=== PATIENT | female | born 1975 | race Two or more races ===

== ENCOUNTER 2016-11-22 22:34 | Emergency (ER) | payer OTHER ==
[2016-11-22 22:46] VITALS: BP 147/97
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
[2016-11-23] MEDS ORDERED: ACETAMINOPHEN 325 MG TABLET PO STA (00:59)
[2016-11-23] MEDS ORDERED: ACETAMINOPHEN 325 MG TABLET PO ONE (01:11)
== END 2016-11-23 01:15 | disposition home or self-care (01) ==
LOC: ED 22:34
DX: H11.31 Conjunctival hemorrhage, right eye (principal)
CPT/HCPCS: 99282; 99283

== ENCOUNTER 2017-04-21 12:08 | Emergency (ER) | payer OTHER ==
[2017-04-21 12:39] VITALS: BP 175/105
== END 2017-04-21 14:59 | disposition left against medical advice (07) ==
LOC: ED 12:08
DX: Z53.21 Procedure and treatment not carried out due to patient leaving prior to being seen by health care provider (principal)

== ENCOUNTER 2018-06-26 13:07 | Emergency (ER) | payer OTHER ==
[2018-06-26 13:20] VITALS: BP 138/102
--- NOTE | 2018-06-26 13:27 | ED Physician Documentation ---
PD HPI NVD - Stated complaint Stated Complaint: ABD PX - Chief complaint Chief Complaint: Abd Pain - History obtained from History obtained from: Patient (She works at a [employer] where there is an old outbreak of a GI illness. For the last 4 days she has had central abdominal pain associated with nausea no vomiting, but also runny nose, chills and body aches but no measured fevers. She saw her physician today and was referred to the emergency department she says because of the right lower quadrant tenderness for appendicitis workup. She has no history of abdominal surgeries.) Review of Systems Constitutional: reports: Chills, Myalgias, Fatigue. denies: Fever Nose: reports: Rhinorrhea / runny nose GI: reports: Abdominal Pain, Nausea, Diarrhea. denies: Vomiting : denies: Dysuria, Frequency, Hesitancy PD PAST MEDICAL HISTORY - Past Medical History Past Medical History: Yes Cardiovascular: Hypertension Psych: Depression Musculoskeletal: Chronic back pain - Past Surgical History Past Surgical History: No - Present Medications Home Medications: Ambulatory Orders Medication Instructions Recorded Confirmed Bupropion HCl [Bupropion Xl] 300 mg ORAL DAILY 03/21/15 05/28/17 hydroCHLOROthiazide 25 mg PO DAILY 04/21/17 05/28/17 [Hydrochlorothiazide] Acyclovir 800 mg PO 5XD #30 tablet 05/28/17 Dexamethasone [Decadron] 4 mg PO DAILY #5 tablet 05/28/17 Methocarbamol [Robaxin] 500 mg PO Q6H PRN #25 tablet 05/28/17 Naproxen [Naprosyn] 500 mg PO BID #20 tablet 05/28/17 Oxycodone HCl/Acetaminophen 1 each PO Q6H PRN #20 tablet 05/28/17 [Percocet 5-325 mg Tablet] - Allergies Allergies/Adverse Reactions: Allergies Allergy/AdvReac Type Severity Reaction Status Date / Time No Known Drug Allergies Allergy Verified 04/21/17 12:39 - Social History Does the pt smoke?: No Smoking Status: Never smoker Does the pt drink ETOH?: Yes Does the pt have substance abuse?: No - Family History Family history: reports: Non contributory - Immunizations Immunizations are current?: Yes PD ED PE NORMAL - Vitals Vital signs reviewed: Yes - General General: Alert and oriented X 3, No acute distress - HEENT HEENT: PERRL, EOMI - Neck Neck: Supple, no meningeal sign, No bony TTP - Cardiac Cardiac: RRR, No murmur - Respiratory Respiratory: No respiratory distress, Clear bilaterally - Abdomen Abdomen: Normal bowel sounds, Soft, Other (Very mild right mid abdominal tenderness that does not localize to the upper or lower quadrant per se. No surgical signs. Negative Rovsing sign.) - Back Back: No CVA TTP, No spinal TTP - Derm Derm: Normal color, Warm and dry - Extremities Extremities: No edema, No calf tenderness / cord - Neuro Neuro: Alert and oriented X 3, Normal speech Results - Vitals Vitals: Vital Signs - 24 hr 06/26/18 13:14 Temperature 36.6 C Heart Rate 71 Respiratory 16 Rate Blood Pressure 138/102 H O2 Saturation 100 Oxygen O2 Source Room air - Labs Labs: Laboratory Tests 06/26/18 06/26/18 06/26/18 13:29 13:29 13:48 WBC 4.5 L RBC 4.00 L Hgb 11.4 L Hct 34.0 L MCV 85.0 MCH 28.6 MCHC 33.7 RDW 15.4 H Plt Count 154 MPV 10.4 Neut # (Auto) 2.5 Lymph # (Auto) 1.4 L [place] # (Auto) 0.4 Eos # (Auto) 0.2 Baso # (Auto) 0.0 Absolute Nucleated RBC 0.00 Nucleated RBC % 0.0 Sodium 137 Potassium 3.8 Chloride 109 Carbon Dioxide 24 Anion Gap 4.0 L BUN 17 Creatinine 0.7 Estimated GFR (MDRD) 91 Glucose 105 H Calcium 8.8 Total Bilirubin 0.4 AST 15 ALT 15 Alkaline Phosphatase 73 Total Protein 7.2 Albumin 4.0 Globulin 3.2 Albumin/Globulin Ratio 1.3 Lipase 30 Urine Color YELLOW Urine Clarity HAZY Urine pH 5.5 Ur Specific [place] >=1.030 H Urine Protein NEGATIVE Urine Glucose (UA) NEGATIVE Urine Ketones NEGATIVE Urine Occult Blood LARGE H Urine Nitrite NEGATIVE Urine Bilirubin NEGATIVE Urine Urobilinogen 1 (NORMAL) Ur Leukocyte Esterase NEGATIVE Urine RBC 6-10 H Urine WBC 0-3 Ur Squamous Epith Cells MOD Squamous H Urine Bacteria Moderate H Urine Casts 0-2 Hyaline Casts Urine Mucus Marked Strands Ur Microscopic Review INDICATED Urine Culture Comments NOT INDICATED Urine HCG, Qual NEGATIVE - Rads (name of study) CT Ap Radiology: EMP read contemporaneously (normal with normal appendix) PD MEDICAL DECISION MAKING - ED course ED course: 43-year-old woman referred from an outpatient clinic for an appendicitis workup. The overall picture seems viral. No pertinent findings on labs or imaging. The patient was counseled as to the diagnosis and need for follow-up. I counseled the patient with regard to signs and symptoms that would necessitate an urgent reevaluation in the emergency department. They understand they are welcome to return at any time if worse or if not improving as expected. This document was made in part using voice recognition software. While efforts are made to proofread this documents, sound alike and grammatical errors may occur. Departure - Departure Disposition: 01 Home, Self Care Clinical Impression: Diarrhea Qualifiers: Diarrhea type: presumed infectious Qualified Code(s): R19.7 - Diarrhea, unspecified Abdominal pain Qualifiers: Abdominal location: generalized Qualified Code(s): R10.84 - Generalized abdominal pain Condition: Good Record reviewed to determine appropriate education?: Yes Instructions: ED Diarrhea Viral Comments: Call your doctor to arrange a follow-up appointment, make the next available appointment. In the interim, return anytime if worse or if new symptoms develop. Your blood pressure was elevated today on check into the emergency department. This does not mean that you have hypertension, it is a common phenomenon to come to the emergency department and have elevated blood pressure. I recommend that you see your primary care physician within the week to have it rechecked when you are feeling better.
[2018-06-26 13:44] LABS: BASOPHILS % (AUTO) 0.3 %; EOSINOPHILS # (AUTO) 0.2 10^3/uL (0.0-0.7); HGB - HEMOGLOBIN 11.4 g/dL (12.0-16.0); LYMPHOCYTES # (AUTO) 1.4 10^3/uL (1.5-3.5); LYMPHOCYTES % (AUTO) 30.4 %; MEAN CORPUSCULAR HEMOGLOBIN 28.6 pg (27.0-31.0); MEAN CORPUSCULAR HGB CONC 33.7 g/dL (32.0-36.0); MEAN PLATELET VOLUME 10.4 fL (7.9-10.8); MONOCYTES # (AUTO) 0.4 10^3/uL (0.0-1.0); MONOCYTES % (AUTO) 9.1 %; NEUTROPHILS # (AUTO) 2.5 10^3/uL (1.5-6.6); NEUTROPHILS % (AUTO) 56.2 %; PLT - PLATELET COUNT 154 10^3/uL (130-450); RED CELL DISTRIBUTION WIDTH 15.4 % (12.0-15.0); WHITE BLOOD COUNT 4.5 x10^3/uL (4.8-10.8)
[2018-06-26] MEDS ORDERED: IOPAMIDOL-300 100 ML VIAL ONE (13:44)
[2018-06-26 13:45] LABS: ALBUMIN/GLOBULIN RATIO 1.3 (1.0-2.2); BILIRUBIN,TOTAL 0.4 mg/dL (0.2-1.0); CALCIUM 8.8 mg/dL (8.5-10.3); CREATININE 0.7 mg/dL (0.4-1.0); TOTAL PROTEIN 7.2 g/dL (6.7-8.2)
[2018-06-26 13:51] LABS: BILIRUBIN,URINE NEGATIVE (NEGATIVE); GLUCOSE, URINE (UA) NEGATIVE (NEGATIVE); KETONES,URINE (UA) NEGATIVE (NEGATIVE); LEUKOCYTE ESTERASE, URINE NEGATIVE (NEGATIVE); NITRITE,URINE NEGATIVE (NEGATIVE); OCCULT BLOOD,URINE LARGE (NEGATIVE); PH,URINE 5.5 PH (5.0-7.5); PROTEIN,URINE NEGATIVE (NEGATIVE); UROBILINOGEN,URINE 1 (NORMAL) E.U./dL (NORMAL)
[2018-06-26 14:02] LABS: BACTERIA,URINE Moderate /HPF (None Seen); CASTS, URINE 0-2 Hyaline Casts /LPF; CLARITY,URINE HAZY (CLEAR); HCG UR QUAL NEGATIVE; MUCUS,URINE Marked Strands; SQUAMOUS EPITHELIAL CELL,UR MOD Squamous (<= Few)
[2018-06-26] MEDS ORDERED: IOPAMIDOL-300 100 ML VIAL IVP ONE (14:18)
--- NOTE | 2018-06-26 14:41 | CT Report ---
Reason: IV only, R abd pain Procedure Date: 06/26/2018 Accession Number: [id number] / [id number] Procedure: CT - Abdomen/Pelvis W/ CPT Code: FULL RESULT: EXAM: CT ABDOMEN AND PELVIS EXAM DATE: 06/26/2018 02:15 PM. CLINICAL HISTORY: Right abdominal pain COMPARISONS: None. TECHNIQUE: Routine helical CT imaging was performed through the abdomen and pelvis. IV contrast: ISOVUE 300 100mL. Enteric contrast: No. Reconstructions: Coronal and sagittal. In accordance with CT protocol optimization, one or more of the following dose reduction techniques were utilized for this exam: automated exposure control, adjustment of mA and/or KV based on patient size, or use of iterative reconstructive technique. FINDINGS: Lung Bases: Unremarkable. Liver: Normal. No masses. Gallbladder/Bile Ducts: Unremarkable. Spleen: Normal. Pancreas: Normal. Adrenal Glands: Normal. Kidneys: Normal. No masses or hydronephrosis. Peritoneal Cavity/Bowel: Normal. No free fluid, free air or adenopathy. No masses or acute inflammatory process. The appendix is well visualized and normal. Pelvic Organs: The urinary bladder is mostly collapsed, limiting its evaluation. The visualized pelvic organs are within normal limits. Vasculature: No aneurysms or other significant abnormality. Bones: No significant abnormality. Other: None. IMPRESSION: No acute findings in the abdomen and pelvis. Normal appendix. RADIA
== END 2018-06-26 15:01 | disposition home or self-care (01) ==
LOC: ED 13:07
DX: R19.7 Diarrhea, unspecified (principal); R10.84 Generalized abdominal pain; I10 Essential (primary) hypertension
CPT/HCPCS: 36415; 74177; 80053; 81001; 81025; 83690; 85025; 99283; Q9967; 81003; 87086

== ENCOUNTER 2020-06-18 07:41 | Day surgery (SDC) | payer OTHER ==
[2020-06-18] MEDS ORDERED: DEXAMETHASONE 4 MG/ML VIAL IVP ONE (07:42)
[2020-06-18] MEDS ORDERED: ePHEDrine 50 MG/ML VIAL IVP ONE (07:42)
[2020-06-18] MEDS ORDERED: MIDAZOLAM 2 MG/2 ML VIAL IVP ONE (07:42)
[2020-06-18] MEDS ORDERED: NEOSTIGMINE 1 MG/1 ML 10 ML MDV IVP ONE (07:42)
[2020-06-18] MEDS ORDERED: PROPOFOL 200 MG/20 ML VIAL IVP ONE (07:42)
[2020-06-18] MEDS ORDERED: ONDANSETRON 4 MG/2 ML VIAL IVP ONE (07:42)
[2020-06-18] MEDS ORDERED: ROCURONIUM 50 MG/5 ML VIAL IVP ONE (07:42)
[2020-06-18] MEDS ORDERED: fentaNYL 100 MCG/2 ML VIAL IVP ONE (07:42)
[2020-06-18] MEDS ORDERED: GLYCOPYRROLATE 1 MG/5 ML VIAL IVP ONE (07:42)
[2020-06-18 08:03] LABS: HCG UR QUAL NEGATIVE
[2020-06-18] MEDS ORDERED: LACTATED RINGERS 1,000 ML IV ONE ×2 (08:14→11:00)
--- NOTE | 2020-06-18 08:33 | ANESTHESIA ---
Pre-Anesthesia VS, & Labs - Diagnosis Thickened endometrium, RLQ Pain - Procedure Diagnostic Lap with Mirena, IUD Placement with Myosure Hysteroscopy Vital Signs: Temp Pulse Resp BP Pulse Ox 36.4 C L 76 16 116/72 100 06/18/20 07:51 06/18/20 07:51 06/18/20 07:51 06/18/20 07:51 06/18/20 07:51 Height: 4 ft 11.06 in Weight (kg): 73.9 kg Body Mass Index: 32.8 BMI Classification: Obese - NPO >8 hours - Is Patient ?: No - Lab Results Lab results reviewed: Yes Home Medications and Allergies Home Medications: Ambulatory Orders Ascorbic Acid 500 mg PO 06/13/20 Ferrous Sulfate 325 mg PO 06/13/20 Losartan [Cozaar] 50 mg PO QPM 06/13/20 Metoprolol Succinate [Toprol Xl] 50 mg PO QPM 06/13/20 Bupropion HCl [Bupropion Xl] 300 mg ORAL DAILY 03/21/15 Ascorbic Acid 500 mg PO 06/13/20 Ferrous Sulfate 325 mg PO 06/13/20 Losartan [Cozaar] 50 mg PO QPM 06/13/20 Metoprolol Succinate [Toprol Xl] 50 mg PO QPM 06/13/20 Allergies/Adverse Reactions: Allergies Allergy/AdvReac Type Severity Reaction Status Date / Time No Known Drug Allergies Allergy Verified 06/13/20 15:19 Anes History & Medical History - Anesthetic History Anesthesia Complications: reports: No previous complications Family history of Anesthesia Complications: Denies Family history of Malignant Hyperthermia: Denies - Medical History Cardiovascular: reports: Hypertension Pulmonary: reports: None Gastrointestinal: reports: None Urinary: reports: None Neuro: reports: None Musculoskeletal: reports: None Endocrine/Autoimmune: reports: None Blood Disorders: reports: None Skin: reports: None Smoking Status: Never smoker Psychosocial: reports: Depression History of Cancer?: No - Surgical History General: Other (Hernia repair 2003) Exam General: Alert, Oriented x3, Cooperative, No acute distress Dental: WNL Mouth Openin Fingerbreadth Neck Mobility: Normal Mallampati classification: I Thyromental Distance: 4-6 cm Respiratory: Lungs clear Mental/Cognitive Status: Alert/Oriented X3, Normal for patient Plan Anesthesia Type: General Consent for Procedure(s) Verified and Reviewed: Yes Code Status: Attempt Resuscitation ASA classification: 2-Mild systemic disease Is this case an emergency?: No (Discussed anesthetic, permit signed.)
[2020-06-18] MEDS ORDERED: MORPHINE 2 MG/ML CARPUJECT IVP PRN (08:35)
[2020-06-18] MEDS ORDERED: METOCLOPRAMIDE 10 MG/2 ML VIAL IVP PRN (08:35)
[2020-06-18] MEDS ORDERED: NALOXONE 0.4 MG/ML VIAL IVP PRN (08:35)
[2020-06-18] MEDS ORDERED: ePHEDrine 50 MG/ML VIAL IVP PRN (08:35)
[2020-06-18] MEDS ORDERED: fentaNYL 100 MCG/2 ML VIAL IVP PRN (08:35)
[2020-06-18] MEDS ORDERED: ONDANSETRON 4 MG/2 ML VIAL IVP PRN (08:35)
[2020-06-18] MEDS ORDERED: HYDROmorphone 0.5 MG/0.5 ML SYRINGE IVP PRN (08:35)
[2020-06-18] MEDS ORDERED: ATROPINE ABBOJECT 1 MG/10 ML SYRINGE IVP PRN (08:35)
[2020-06-18] MEDS ORDERED: LACTATED RINGERS 1,000 ML IV SCH (09:00)
[2020-06-18] MEDS ORDERED: SILVER NITRATE APPLICATOR TOP ONE ×2 (09:42→10:17)
[2020-06-18] MEDS ORDERED: LEVONORGESTREL 20 MCG/24H IUD IY ONE ×2 (09:42→10:49)
[2020-06-18] MEDS ORDERED: BUPIVACAINE 0.5% PF 30 ML VIAL ONE (09:43)
[2020-06-18] MEDS ORDERED: VASOPRESSIN 20 UNIT/ML VIAL ONE (09:43)
[2020-06-18] MEDS ORDERED: LIDOCAINE 1% 50 ML MDV ONE (09:44)
[2020-06-18] MEDS ORDERED: BUPIVACAINE 0.5% PF 30 ML VIAL INFIL ONE ×2 (10:40)
[2020-06-18] MEDS ORDERED: LIDOCAINE 1% 50 ML MDV SUBQ ONE ×2 (10:40)
[2020-06-18] MEDS ORDERED: HYDROcod/ACETAM 10 MG/325 MG TABLET PO PRN (11:03)
--- NOTE | 2020-06-18 11:07 | OPERATIVE REPORT ---
Operative Report - General Planned Procedure: Diagnostic laparoscopy, peritoneal biopsy Hysteroscopy with Myosure Mirena IUD Pre-Op Diagnosis: Thickened endometrium, right lower quadrant pain Procedure Performed: Same as above Post Op Diagnosis: Thickened endometrium, endometriosis - Procedure Note Primary Surgeon: Sebastián Secondary Surgeon: Jessica Anesthesia Provider: Estuardo Anesthesia Technique: General ET tube Pathology: Peritoneal biopsy Endometrium IV Fluids (mL): 500 Estimated Blood Loss (mL): 10 Indications: 10 thickened endometrium noted on ultrasound Cyclic right lower quadrant pain Findings: Exam under anesthesia The uterus was upper limits of normal size, of normal shape and consistency. The adnexa the were benign. Operative findings The uterus was of normal shape, covered with translucent blebs, 1 of which was sampled. There were powder rai in the anterior cul-de-sac. The posterior cul-de-sac was obliterated, preventing complete visualization of either ovary. The tubes appeared normal. The appendix was searched for, but not found. The liver edge and gallbladder appeared normal. Hysteroscopic findings The uterus sounded to 12 cm. There was abundant fluffy endometrium which made it difficult to visualize intrauterine landmarks, but the cornua were eventually seen and photographed. Complications: None - Other Other Information/Narrative: The patient was brought to the operating room, placed supine on the operating table, and given general oral endotracheal anesthesia. She was then placed in low lithotomy stirrups and prepped and draped in the usual sterile fashion. A timeout was performed. An exam under anesthesia was performed. A speculum was then placed in her vagina and a Hulka tenaculum placed in her cervix. Attention was then returned to the abdomen where the umbilicus was infiltrated with 3 cc of half percent Marcaine and a midline stab incision was made. A Verress needle attached to high flow carbon dioxide was then inserted directly into the abdomen and the abdomen inflated until insufflation pressures reached 15 mmHg. The Veress needle was removed and replaced with the 0 degree laparoscopic trocar and sleeve with the laparoscope attached to allow direct visualization of entry into the abdomen. The trocar was removed allowing direct visualization of abdominal contents with findings as previously noted. An avascular area in the right lower quadrant was infiltrated with 3 cc of half percent Marcaine, a stab incision was made and a 5 mm trocar inserted under direct visualization. A grasper was used to remove the previously noted blebs from the uterine serosa which was then sent for pathologic examination. After the rest of the abdomen was visualized, the abdominal cavity was desufflated to the extent possible, the trochars were removed and the incisions closed with 4-0 Monocryl and Dermabond. Attention was then turned to the vagina where a speculum was inserted into the vagina, the cervix grasped with a single-tooth tenaculum and the uterus sounded to 12 cm. The cervix was then serially dilated to allow passage of the 0 degree Myosure hysteroscope, with findings as previously noted. When the MyoSure curettage was judged complete, a Mirena IUD was placed, the instruments withdrawn from the vagina and the patient was awakened and taken to the recovery room in stable condition.
--- NOTE | 2020-06-18 11:37 | ANESTHESIA POST OP EVALUATION ---
Anesthesia Post Eval - Post Anesthesia Eval Vitals: Last Vital Signs Temp 36.3 C L 06/18/20 11:30 Pulse 60 06/18/20 11:30 Resp 16 06/18/20 11:30 BP 105/66 06/18/20 11:20 Pulse Ox 17 L 06/18/20 11:30 CV Function Including HR & BP: positive: Stable Pain Control: positive: Satisfactory Nausea & Vomiting: positive: Negative Mental Status: positive: Baseline Respiratory Status: Airway Patent Hydration Status: Satisfactory Anesthesia Complications: positive: None (Awake and responding appropriately)
[2020-06-18] MEDS ORDERED: fentaNYL 100 MCG/2 ML VIAL ONE (12:04)
[2020-06-18 12:21] VITALS: BP 119/65
[2020-06-18] MEDS ORDERED: ONDANSETRON 4 MG/2 ML VIAL ONE (12:44)
== END 2020-06-18 07:42 | disposition home or self-care (01) ==
LOC: SDS 07:41
PROVIDERS: ATTEND Obstetrics & Gynecology
PROC: 0UB94ZX Excision of Uterus, Percutaneous Endoscopic Approach, Diagnostic (ICD-10-PCS; principal; 2020-06-18 09:15)
PROC: 0UDB8ZZ Extraction of Endometrium, Via Natural or Artificial Opening Endoscopic (ICD-10-PCS; 2020-06-18 09:15)
DX: R93.89 Abnormal findings on diagnostic imaging of other specified body structures (principal); R10.2 Pelvic and perineal pain; N83.292 Other ovarian cyst, left side; N80.9 Endometriosis, unspecified; E66.9 Obesity, unspecified; Z68.32 Body mass index [BMI] 32.0-32.9, adult; K66.8 Other specified disorders of peritoneum
CPT/HCPCS: 81025

== ENCOUNTER 2020-07-06 12:33 | Outpatient (CLI) | payer OTHER ==
[2020-07-06] MEDS ORDERED: GADOBUTROL 7.5 MMOL/7.5 ML VIAL ONE (13:25)
--- NOTE | 2020-07-06 16:56 | MRI Report ---
PROCEDURE: Pelvis W/WO INDICATIONS: PELVIC AND PERINEAL PAIN CONTRAST: IV CONTRAST: Gadavist ml: 7 TECHNIQUE: Coronal ultra fast SE, sagittal breath-hold T2 FSE; axial T1 FSE with and without fat saturation thro ugh the pelvis. Optional long- and short-axis uterine nonbreath-hold T2 FSE through the uterus. Sag ittal or axial dynamic ultra fast GE during administration of contrast. Post-contrast axial or coron al ultra fast GE / 2-D spoiled GE with fat saturation from the iliac crests to the symphysis. Option al diffusion weighted imaging and ADC may be performed. COMPARISON: None available. FINDINGS: Image quality: Excellent. Uterus: Uterus is normal in size. There is a slight arcuate morphology and there is an IUD present d irected towards the left horn. The IUD appears to be a Y-shaped and is rotated 90 degrees with the cr ossbars in close proximity of the upper and lower portions of the fundal myometrium. There is no perf oration of the serosal surface. The IUD string is seen and traverses the endocervix. Endometrium is n ormal in thickness. There are a few small ovoid and rounded T2 hyperintense foci within the junctiona l zone. Junctional zone is normal in thickness at 12 mm or less. Adnexa: The right ovary was not well seen. The structure believed to be the right ovary measures appr oximately 1.9 x 2.3 x 2.4 cm without dominant follicle or cyst. It demonstrates hypoenhancement, and T1 and T2 hypointensity. The left ovary has normal morphology and contains a 2.9 x 3.5 x 3.7 cm simpl e left ovarian cyst. Urinary system: Bladder wall is normal in thickness. Distal ureters are non distended. Urethra juan ears normal in morphology. Nodes and vessels: No pelvic or inguinal adenopathy by size criteria. Iliac vessels are normal in s ize. Bowel and peritoneum: No pathologic free pelvic fluid. Normal appendix. Inferior colon and small storm wel loops are normal in caliber. Soft tissues: No inguinal hernias. No findings of pelvic floor incompetence in the absence of provo cation. Bones: Marrow demonstrates normal overall signal. IMPRESSION: 1. IUD in the left fundus, probably rotated. This may be symptomatic. 2. Hypoenhancing right ovarian structure may be a hemorrhagic cyst, fibroma, less likely dermoid give n lack of T1 hyperintensity. 3. Normal appendix. Reviewed by: Belinda King MD on 07/06/2020 4:54 PM PST Approved by: Belinda King MD on 07/06/2020 4:54 PM PST Station ID: [id number]
== END 2020-07-06 12:34 | disposition home or self-care (01) ==
LOC: DI 12:33
PROVIDERS: ATTEND Student in an Organized Health Care Education/Training Program
DX: R10.2 Pelvic and perineal pain (principal); Z97.5 Presence of (intrauterine) contraceptive device
CPT/HCPCS: 72197; A9585

== ENCOUNTER 2020-11-06 12:35 | Observation (INO) | payer OTHER ==
[2020-11-06 12:58] LABS: BASOPHILS % (AUTO) 0.5 %; EOSINOPHILS # (AUTO) 0.2 10^3/uL (0.0-0.7); EOSINOPHILS % (AUTO) 2.3 %; HCT - HEMATOCRIT 26.6 % (37.0-47.0); HGB - HEMOGLOBIN 7.6 g/dL (12.0-16.0); LYMPHOCYTES # (AUTO) 2.5 10^3/uL (1.5-3.5); LYMPHOCYTES % (AUTO) 31.1 %; MEAN CORPUSCULAR HEMOGLOBIN 21.1 pg (27.0-31.0); MEAN CORPUSCULAR HGB CONC 28.6 g/dL (32.0-36.0); MEAN CORPUSCULAR VOLUME 73.9 fL (81.0-99.0); MEAN PLATELET VOLUME 12.1 fL (7.9-10.8); MONOCYTES # (AUTO) 0.7 10^3/uL (0.0-1.0); MONOCYTES % (AUTO) 8.6 %; NEUTROPHILS # (AUTO) 4.7 10^3/uL (1.5-6.6); NEUTROPHILS % (AUTO) 57.3 %; PLT - PLATELET COUNT 222 10^3/uL (130-450); RED CELL DISTRIBUTION WIDTH 17.1 % (12.0-15.0); WHITE BLOOD COUNT 8.1 x10^3/uL (4.8-10.8)
--- NOTE | 2020-11-06 13:00 | ED Physician Documentation ---
History of Present Illness - Stated complaint Stated Complaint: LT SIDE PX - Chief complaint Chief Complaint: Cardiac - Additonal information Additional information: 45-year-old female presents emergency department for evaluation of intermittent chest pain that has been getting progressively worse over the last 3 weeks. She reports that she is increasingly fatigued when climbing stairs and with exertion or dressing her resident she will develop a left-sided chest pain that would last a few minutes. Typically improves with rest. She does have a history of hypertension. Non-smoker. No alcohol. no hx of cad. no hx of stress test or echo Denies with the episodes of chest pain any nausea, radiation of the pain, syncopal episodes or shortness of air. No personal history of blood clots or cancer. Past medical history is hypertension Meds: metoprolol, losartan. PCP: [facility]. Review of Systems Constitutional: denies: Fever, Chills Eyes: reports: Reviewed and negative Ears: reports: Reviewed and negative Nose: reports: Reviewed and negative Throat: reports: Reviewed and negative Cardiac: reports: Chest pain / pressure. 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 : None HEENT: None Psych: Depression Musculoskeletal: None Derm: None - Past Surgical History Past Surgical History: No General: Other (Hernia repair 2003) - Present Medications Home Medications: Ambulatory Orders Medication Instructions Recorded Confirmed Bupropion HCl [Bupropion Xl] 300 mg ORAL DAILY 03/21/15 11/06/20 Ascorbic Acid 500 mg PO DAILY 06/13/20 11/06/20 Ferrous Sulfate 325 mg PO DAILY 06/13/20 11/06/20 Losartan [Cozaar] 50 mg PO QPM 06/13/20 11/06/20 Metoprolol Succinate [Toprol Xl] 50 mg PO QPM 06/13/20 11/06/20 - Allergies Allergies/Adverse Reactions: Allergies Allergy/AdvReac Type Severity Reaction Status Date / Time No Known Drug Allergies Allergy Verified 11/06/20 12:40 - Social History Does the pt smoke?: No Smoking Status: Never smoker Does the pt drink ETOH?: Yes Does the pt have substance abuse?: No - Immunizations Immunizations are current?: Yes - POLST Patient has POLST: No PD ED PE EXPANDED - General General: Alert, No acute distress, Other (obese) - Neck Neck: Supple w/out meningeal sx. No: Adenopathy - Cardiac Cardiac: Regular Rate, Regular Rhythm, Radial strong equal, Pedal strong equal, Cap refill < 2 sec. No: Murmur Present - Respiratory Respiratory: Clear to ausultation joaquina. No: Distress, Labored - Abdomen Abdomen: Normal Bowel sounds. No: Tender to palpation - Derm Derm: Normal color, Warm and dry. No: Rash, Petecchiae, Purpura - Extremities Extremities: Normal. No: Deformity, Tenderness - Neuro Neuro: Alert and Oriented X 3, CNII-XII intact - GCS Eye Opening: Spontaneous Motor: Obeys Commands Verbal: Oriented Total: 15 Results - Vitals Vitals: Vital Signs - 24 hr 11/06/20 12:40 Temperature 36.6 C Heart Rate 65 Respiratory 18 Rate Blood Pressure 153/83 H O2 Saturation 99 Oxygen O2 Source Room air - EKG (time done) 1247 Rate: Rate (enter#) (62) Rhythm: NSR [place]: Normal Intervals: Normal SD QRS: Normal Ischemia: T wave inversion (V2; ? anteroseptal infarct) Compare to prior EKG: Old EKG unavailable Computer interpretation: Agree with computer - Labs Labs: Laboratory Tests 11/06/20 11/06/20 11/06/20 12:54 12:54 12:54 WBC 8.1 RBC 3.60 L Hgb 7.6 L Hct 26.6 L MCV 73.9 L MCH 21.1 L MCHC 28.6 L RDW 17.1 H Plt Count 222 MPV 12.1 H Neut # (Auto) 4.7 Lymph # (Auto) 2.5 [place] # (Auto) 0.7 Eos # (Auto) 0.2 Baso # (Auto) 0.0 Absolute Nucleated RBC 0.00 Nucleated RBC % 0.0 Sodium 137 Potassium 4.0 Chloride 105 Carbon Dioxide 22 Anion Gap 10.0 BUN 15 Creatinine 0.6 Estimated GFR (MDRD) 108 Glucose 99 Calcium 9.4 Total Bilirubin 0.3 AST 13 ALT 14 Alkaline Phosphatase 62 Troponin I High Sens 2.6 Total Protein 7.3 Albumin 3.8 Globulin 3.5 Albumin/Globulin Ratio 1.1 Lipase 28 TSH Serum HCG, Qual 11/06/20 11/06/20 12:54 13:02 WBC RBC Hgb Hct MCV MCH MCHC RDW Plt Count MPV Neut # (Auto) Lymph # (Auto) [place] # (Auto) Eos # (Auto) Baso # (Auto) Absolute Nucleated RBC Nucleated RBC % Sodium Potassium Chloride Carbon Dioxide Anion Gap BUN Creatinine Estimated GFR (MDRD) Glucose Calcium Total Bilirubin AST ALT Alkaline Phosphatase Troponin I High Sens Total Protein Albumin Globulin Albumin/Globulin Ratio Lipase TSH 1.04 Serum HCG, Qual NEGATIVE PD MEDICAL DECISION MAKING - ED course Complexity details: reviewed results, re-evaluated patient, d/w patient, d/w family ED course: 45-year-old female presents to the emergency department for evaluation of intermittent chest pain that has been getting progressively worse over the last 3 to 4 weeks. She describes the chest pain as sharp and worse with exertion. No history of tobacco use but she is obese and has a history of hypertension. Screening EKG today is somewhat abnormal with T wave inversion in V2. High- sensitivity troponin is negative. Most significant finding on screening labs is an anemia that the patient attributes to endometriosis and heavy irregular menses. However her heart score is 4 putting her at moderate risk for a Mace event. I spoken with Dr. Humphrey the daytime hospitalist who agrees to bring the patient in on observation status likely for a stress test in a.m. Patient is agreeable to this plan. Departure - Departure Disposition: ED Place in Observation Clinical Impression: Chest pain Qualifiers: Chest pain type: unspecified Qualified Code(s): R07.9 - Chest pain, unspecified Anemia Qualifiers: Anemia type: iron deficiency Iron deficiency anemia type: chronic blood loss Qualified Code(s): D50.0 - Iron deficiency anemia secondary to blood loss (chronic)
[2020-11-06 13:17] LABS: ALBUMIN 3.8 g/dL (3.2-5.5); ALBUMIN/GLOBULIN RATIO 1.1 (1.0-2.2); BILIRUBIN,TOTAL 0.3 mg/dL (0.2-1.0); CALCIUM 9.4 mg/dL (8.5-10.3); CREATININE 0.6 mg/dL (0.4-1.0); TOTAL PROTEIN 7.3 g/dL (6.7-8.2)
[2020-11-06 13:51] LABS: HCG,QUALITATIVE BLOOD NEGATIVE
[2020-11-06] MEDS ORDERED: ACETAMINOPHEN 325 MG TABLET PO PRN (14:01)
[2020-11-06] MEDS ORDERED: SODIUM CHLORIDE FLUSH 0.9% 10 ML SYRINGE IVP PRN (14:01)
[2020-11-06] MEDS ORDERED: ONDANSETRON ODT 4 MG TABLET TL PRN (14:01)
--- NOTE | 2020-11-06 14:02 | XRAY Report ---
PROCEDURE: Chest 1 View X-Ray INDICATIONS: Chest Pain TECHNIQUE: One view of the chest was acquired. COMPARISON: Chest x-ray 04/15/2014 FINDINGS: Surgical changes and devices: None. Lungs and pleura: No pleural effusions or pneumothorax. Lungs are clear. Mediastinum: Mediastinal contours appear normal. Heart size is upper limits of normal in size. Bones and chest wall: No suspicious bony lesions. Overlying soft tissues appear unremarkable. IMPRESSION: No acute pulmonary process. Reviewed by: Rosie Menendez MD on 11/06/2020 2:01 PM PDT Approved by: Rosie Menendez MD on 11/06/2020 2:01 PM PDT Station ID: [id number]
--- NOTE | 2020-11-06 14:08 | HISTORY & PHYSICAL EXAMINATION ---
Chief Complaint - Chief Complaint Chief Complaint: Chest pain History of Present Illness - Admitted From Admitted From:: Home - History Obtained From Records Reviewed: Yes History obtained from: Patient, ER Physician, EMR - History of Present Illness HPI Comment/Other: This is a pleasant 45-year-old female with a past medical history significant for hypertension and iron deficiency anemia who presents today complaining of chest pain. She states this has been present for the past 3 weeks. She became concerned last night when it occurred at rest while she was watching TV. The pain went away on its own but this morning it occurred again when she was assisting someone with putting their pants on. She states the pain is located over the left side of her chest. It is sharp in nature. It is nonradiating. No associated nausea, vomiting, diaphoresis. The pain normally occurs with exertion will resolve with rest. She has no family history of heart disease. She is a non-smoker. She also states that she has been fatigued for the past 3 to 4 weeks. She has had decreased exercise tolerance and dyspnea with exertion. She complains of l ack of energy. She reports a history of iron deficiency anemia in the past and she does take oral iron on a daily basis. She has abnormal uterine bleeding with heavy cycles that resolved last year. She states that now normally she will have occasional spotting for about 1 to 2 weeks followed by a "normal "cycle for another week. She states that this "normal" cycle lasts 7 days and she normally uses 4-5 pads a day. Her last menstrual cycle was 2 days ago. She reports no blood in her stool or hematuria. She was told that she was close to requiring a blood transfusion last year due to her anemia. Given her chest pain, medicine was consulted for admission to place the patient in observation for a stress test. 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 Her father is a diabetic. She has one sister who is also diabetic. No family history of heart disease. Her maternal aunt has a history of breast cancer. Her paternal aunt has a history of what is believed to be gastric cancer. Living arrangement: At home Living Situation: With family Social History Notes: She lives at home with her . She has 3 daughters. 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 She is a non-smoker. Rarely drinks alcohol. - POLST Patient has POLST: No Meds/Allgy - Home Medications Home Medications: Ambulatory Orders Medication Instructions Recorded Confirmed Bupropion HCl [Bupropion Xl] 300 mg ORAL DAILY 03/21/15 11/06/20 Ascorbic Acid 500 mg PO DAILY 06/13/20 11/06/20 Ferrous Sulfate 325 mg PO DAILY 06/13/20 11/06/20 Losartan [Cozaar] 50 mg PO QPM 06/13/20 11/06/20 Metoprolol Succinate [Toprol Xl] 50 mg PO QPM 06/13/20 11/06/20 - Allergies Allergies/Adverse Reactions: Allergies Allergy/AdvReac Type Severity Reaction Status Date / Time No Known Drug Allergies Allergy Verified 11/06/20 12:40 Review of Systems - Constitutional Constitutional: reports: Fatigue, Malaise, Weakness - Cardiovascular Cariovascular: reports: Chest pain, Exertional dyspnea, Decr. exercise tolerance. denies: Palpitations, Edema - Respiratory Respiratory: reports: SOB with exertion. denies: Cough, SOB at rest - Gastrointestinal Gastrointestinal: denies: Abdominal pain, Diarrhea, Change in bowel habits, Black stools, Bloody stools, Nausea, Vomiting - Genitourinary Genitourinary: reports: Other (Abnormal uterine bleeding). denies: Hematuria - Neurological Neurological: reports: General weakness, Dizziness - Hematologic/Lymphatic Hematologic/Lymphatic: reports: Anemia - All Other Systems All Other Systems: reports: Reviewed and negative Prior Level of Functionality: She is independent with her ADLs. Exam - Vital Signs Reviewed Vital Signs: Yes Vital Signs: Vital Signs x48h Temp Pulse Resp BP Pulse Ox 11/06/20 12:40 36.6 C 65 18 153/83 H 99 - Physical Exam General Appearance: positive: No acute distress, Alert Eyes Bilateral: positive: Normal inspection, Conjunctivae nml ENT: positive: ENT inspection nml Neck: positive: Nml inspection Respiratory: positive: No respiratory distress. negative: Wheezes, Rales Cardiovascular: positive: Regular rate & rhythm, No murmur. negative: Tachycardia, Systolic murmur Abdomen: positive: Non-tender, No distention. negative: Tenderness, Guarding, Rebound Skin: positive: Warm, Dry Extremities: positive: Full ROM, No pedal edema Neurologic/Psychiatric: positive: Oriented x3, Motor nml. negative: Disoriented to person, Disoriented to place, Disoriented to time Conclusion/Plan - Problem List (1) Chest pain Conclusion/Plan: Given her chest pain and a heart score of 4, the patient will be placed in observation. Risk factors include her hypertension, obesity. Her EKG shows new T wave inversions in leads V2 otherwise her EKG is unremarkable. Initial troponin is normal. We will make her n.p.o. at midnight for stress test. We will continue her beta-una. We will check lipid panel and A1c. Qualifiers: Chest pain type: unspecified Qualified Code(s): R07.9 - Chest pain, unspecified (2) Iron deficiency anemia Conclusion/Plan: Hemoglobin is decreased at 7.6 and her MCV is 72. Suspect this is likely going to be iron deficiency anemia from chronic blood loss due to her abnormal uterine bleeding. We will check iron studies and ferritin. We will increase her oral iron mentation to twice daily. We did discuss the potential need for IV iron on outpatient basis if she remains anemic with significant iron deficiency. Check her stool for occult blood. Qualifiers: Iron deficiency anemia type: chronic blood loss Qualified Code(s): D50.0 - Iron deficiency anemia secondary to blood loss (chronic) (3) Hypertension Conclusion/Plan: He is currently hypertensive with systolic in the 150s. We will continue her home antihypertensives. Will adjust dosing as necessary. (4) Abnormal uterine bleeding Conclusion/Plan: She reports a diagnosis of endometriosis and she is being followed by gynecology. I suspect this is contributing to her iron deficiency anemia. She will continue outpatient follow-up with gynecology. - Lab Results Lab results reviewed: Yes Fish Bones: 11/06/20 12:54 11/06/20 12:54 - Diagnostic Imaging Results Diagnostic Imaging Results: positive: Final report reviewed - EKG Results EKG Interpreted Independently: Yes EKG Comparison: Changed from prior EKG (T wave inversions in V2 is new compared to prior EKG.) EKG Findings: EKG reveals a sinus rhythm. She has T wave inversions in V2. No other ST segment changes. Core Measures - Anticipated LOS I expect patient to be DC'd or transferred within 96 hours.: Yes - Issues Hospital Issues and Management Plan: 45-year-old female with history of iron deficiency anemia, hypertension presents with chest pain. Her heart score is 4 [address] her in observation for stress test tomorrow. We will trend her troponins. - DVT/VTE - Prophylaxis VTE/DVT Device ordered at admit?: Yes VTE/DVT Prophylaxis med ordered at admit?: No
[2020-11-06 15:20] LABS: IRON < 6 ug/dL (28-170); TOTAL IRON BINDING CAPACITY 517 ug/dL (250-450); TRANSFERRIN 369 mg/dL (192-382)
[2020-11-06 17:16] LABS: B. PARAPERTUSSIS- RESP PCR PAN NOT DETECTED; B. PERTUSSIS- RESP PCR PANEL NOT DETECTED; C. PNEUMONIAE- RESP PCR PANEL NOT DETECTED; CORONAVIRUS 229E-RESP PCR NOT DETECTED; CORONAVIRUS HKU1-RESP PCR NOT DETECTED; CORONAVIRUS NL63-RESP PCR NOT DETECTED; CORONAVIRUS OC43-RESP PCR NOT DETECTED; HUMAN METAPNEUMOVIRUS NOT DETECTED; INFLUENZA A- RESP PCR PANEL NOT DETECTED; INFLUENZA B - RESP PCR PANEL NOT DETECTED; M. PNEUMONIAE- RESP PCR PANEL NOT DETECTED; PARAINFLUENZA VIRUS 1 NOT DETECTED; PARAINFLUENZA VIRUS 2 NOT DETECTED; PARAINFLUENZA VIRUS 3 NOT DETECTED; PARAINFLUENZA VIRUS 4 NOT DETECTED; RHINOVIRUS/ENTEROVIRUS NOT DETECTED; RSV- RESP PCR PANEL NOT DETECTED; SARS-CoV-2 -RESP PCR PANEL NOT DETECTED
[2020-11-06] MEDS: SODIUM CHLORIDE FLUSH 0.9% 10 ML SYRINGE IVP SCH (19:22)
[2020-11-06] MEDS: FERROUS SULFATE 325 MG TABLET PO SCH (20:08)
[2020-11-06] MEDS ORDERED: LOSARTAN 50 MG TABLET PO SCH (21:00)
[2020-11-06] MEDS ORDERED: METOPROLOL SUCCINATE 50 MG TABLET PO SCH (21:00)
[2020-11-07] MEDS: SODIUM CHLORIDE FLUSH 0.9% 10 ML SYRINGE IVP SCH ×3 (00:22→17:07)
[2020-11-07 04:14] LABS: BASOPHILS % (AUTO) 0.4 %; EOSINOPHILS # (AUTO) 0.2 10^3/uL (0.0-0.7); EOSINOPHILS % (AUTO) 2.8 %; HCT - HEMATOCRIT 27.9 % (37.0-47.0); HGB - HEMOGLOBIN 8.2 g/dL (12.0-16.0); LYMPHOCYTES # (AUTO) 2.3 10^3/uL (1.5-3.5); LYMPHOCYTES % (AUTO) 30.5 %; MEAN CORPUSCULAR HEMOGLOBIN 21.5 pg (27.0-31.0); MEAN CORPUSCULAR HGB CONC 29.4 g/dL (32.0-36.0); MONOCYTES # (AUTO) 0.6 10^3/uL (0.0-1.0); MONOCYTES % (AUTO) 7.7 %; NEUTROPHILS # (AUTO) 4.4 10^3/uL (1.5-6.6); NEUTROPHILS % (AUTO) 58.5 %; NRBC ABSOLUTE COUNT (AUTO) 0.02 x10^3/uL; NUCLEATED RED BLOOD CELLS AUTO 0.3 /100WBC; RED BLOOD COUNT 3.82 10^6/uL (4.20-5.40); RED CELL DISTRIBUTION WIDTH 16.9 % (12.0-15.0); WHITE BLOOD COUNT 7.5 x10^3/uL (4.8-10.8)
[2020-11-07 04:17] LABS: MEAN PLATELET VOLUME 12.5 fL (7.9-10.8); PLT - PLATELET COUNT 216 10^3/uL (130-450)
[2020-11-07 04:22] LABS: CALCIUM 8.9 mg/dL (8.5-10.3); CREATININE 0.6 mg/dL (0.4-1.0); POTASSIUM 4.3 mmol/L (3.5-5.0)
[2020-11-07 04:30] LABS: CHOL/HDL RATIO 3.1 (<4.4); CHOLESTEROL 181 mg/dL; HDL CHOLESTEROL 59 mg/dL; LDL CHOLESTEROL,CALCULATED 104 mg/dL; LDL/HDL RATIO 1.8 (<4.4); TRIGLYCERIDES 91 mg/dL; VLDL CHOLESTEROL 18 mg/dL
[2020-11-07] MEDS: FERROUS SULFATE 325 MG TABLET PO SCH ×2 (08:53→17:07)
[2020-11-07] MEDS ORDERED: BUPROPION HCL 300 MG ORAL SCH (09:00)
[2020-11-07] MEDS ORDERED: buPROPion XL 150 MG TABLET PO SCH (09:00)
[2020-11-07] MEDS ORDERED: NON FORMULARY MED (Ferrous Sulfate [Ferrous Sulfate] 325 MG Tablet.Dr) PO SCH (09:00)
[2020-11-07 10:35] LABS: ESTIMATED AVERAGE GLUCOSE 128 mg/dL (70-100); HEMOGLOBIN A1c% 6.1 % (4.27-6.07)
--- NOTE | 2020-11-07 15:53 | CARDIAC PROCEDURE NOTE ---
DATE OF SERVICE: 11/06/2020 Physician: Rachael Delaney MD INDICATION: Chest pain. PROCEDURE: After signing informed consent, the patient underwent a Reuben- protocol treadmill stress test with nuclear myocardial perfusion imaging. RESTING HEART RATE: 60. PEAK HEART RATE: 130 (74% predicted maximum heart rate for age). RESTING BLOOD PRESSURE: 125/83. PEAK BLOOD PRESSURE: 142/75. The patient exercised for 7 minutes and 54 seconds on a Reuben-protocol treadmill stress test. She achieved a peak heart rate of 130 (74% PMHR) and 9.98 METs. The patient developed moderate to severe shortness of breath at peak and fatigue and requested that the test be stopped, before achieving 85% predicted heart rate for age. She rated her perceived exertion at 19/20 on the Mike scale at peak. The patient had no chest pain during exercise. Oxygen saturation was 92- 99% on room air pretest and after exercise. The oxygen monitor did not function during exercise, except for one reading at 95%, which was at mid-exercise. RESTING EKG: Normal sinus rhythm, within normal limits. EKG AT PEAK: [address] depressions in leads II, III, aVF, and V5 and V6. IMPRESSION 1. Normal resting EKG. 2. Fair-poor exercise tolerance. The patient only achieved 74% predicted maximum heart rate for age (target is 85% pred. max. HR for age). 3. Borderline abnormal EKG changes for ischemia develop with this stress test. 4. Nuclear images were reported separately and showed: Martín-apical perfusion defect which resolves with prone imaging and a new martín-septal defect is seen when prone, compared to supine; this suggests shifting breast artifact. The Tglo-vm-[id number] ratio is increased, which is an independent predictor of adverse cardiac event. Normal LVEF of 74%. IMPRESSION: 1. Borderline abnormal stress test. 2. This patient's cardiac risk: Moderate. RECOMMENDATIONS: 1. If clinically indicated, a repeat test using pharmaceutical stress, with nuclear imaging could be repeated. TD: 11/07/2020 15:51 rosie MARCUS
--- NOTE | 2020-11-07 15:58 | Discharge Plan ---
Discharge Plan Problem Reviewed?: Yes Disposition: Home, Self Care Condition: Stable Diet: Diabetic Activity Restrictions: Activity as Tolerated Shower Restrictions: No Driving Restrictions: No Instruction Topics: Prediabetes Health Concerns: You were seen in the hospital because you were having chest pain. Given your risk factors, we admitted you overnight to have a stress test. This did not suggest that there was evidence of heart disease. It may be that your chest pain is related to your anemia and low blood counts. If you continue to have chest pain then please follow-up with your primary care provider or return to the emergency department as you would likely need a cardiology evaluation. Your iron studies are quite low and this is suggestive of iron deficiency anemia. Please take iron tablets twice a day instead of just once a day. Your blood counts have improved during this hospitalization and they were likely low due to your uterine bleeding. You were also found to have prediabetes. Your blood sugars are slightly elevated. You do not have diabetes but this puts you at increased risk of developing diabetes in the future. Plan of Treatment: Please take the iron tablets twice a day as you are quite iron deficient. Please follow-up with your primary care provider because if your iron numbers remain low, you may need IV iron infusions. Please continue to follow-up with your senior treasury analyst regarding your uterine bleeding. I have attached a document discussing prediabetes. It is important to limit your carbohydrate intake and to exercise on a frequent basis. Weight loss can also help prevent the progression to diabetes. If you continue to have episodes of chest pain then it is recommended that you see paramedic instructor for a possible angiogram. Care Goals: The goal is to treat your underlying iron deficiency and to prevent the development of diabetes. Assessment: Patient expressed understanding of the treatment plan. Additional Instructions or Follow Up instructions: Please follow-up with your primary care in the future to discuss your low iron counts. No Smoking: If you smoke, Please STOP! Call for help. Follow-up with: ERICKA HOWARD DO [Primary Care Provider] -
--- NOTE | 2020-11-07 16:06 | DISCHARGE SUMMARY ---
Discharge Summary Admit Date: 11/06/20 Discharge Date: 11/07/20 Discharging Provider: Oswaldo Humphrey Primary Care Provider: Delgado Jaime Code Status: Attempt Resuscitation Condition at Discharge: Stable Discharge Disposition: 01 Home, Self Care - DIAGNOSES Admission Diagnoses: Chest pain Iron deficiency anemia Hypertension Abnormal uterine bleeding Discharge Diagnoses with Status of Each Condition: Chest pain - resolved Iron deficiency anemia - stable. Hypertension - stable. Abnormal uterine bleeding - stable. - HPI History of Present Illness: This is a pleasant 45-year-old female with a past medical history significant for hypertension and iron deficiency anemia who presents today complaining of chest pain. She states this has been present for the past 3 weeks. She became concerned last night when it occurred at rest while she was watching TV. The pain went away on its own but this morning it occurred again when she was assisting someone with putting their pants on. She states the pain is located over the left side of her chest. It is sharp in nature. It is nonradiating. No associated nausea, vomiting, diaphoresis. The pain normally occurs with exertion will resolve with rest. She has no family history of heart disease. She is a non-smoker. She also states that she has been fatigued for the past 3 to 4 weeks. She has had decreased exercise tolerance and dyspnea with exertion. She complains of lack of energy. She reports a history of iron deficiency anemia in the past and she does take oral iron on a daily basis. She has abnormal uterine bleeding with heavy cycles that resolved last year. She states that now normally she will have occasional spotting for about 1 to 2 weeks followed by a "normal "cycle for another week. She states that this "normal" cycle lasts 7 days and she normally uses 4-5 pads a day. Her last menstrual cycle was 2 days ago. She reports no blood in her stool or hematuria. She was told that she was close to requiring a blood transfusion last year due to her anemia. Given her chest pain, medicine was consulted for admission to place the patient in observation for a stress test. - CONSULTS | PROCEDURES Procedures: Reuben protocol treadmill stress test was performed on November 07. The patient achieved a peak heart rate of 130 (74% PMHR) and 9.98 METs. The patient developed moderate to severe shortness of breath at peak and fatigue and request that the test be stopped, before achieving 85% protected heart rate for age. She rated her perceived exertion at 19 out of 20 on the Mike scale at peak. The patient had no chest pain during exercise. Oxygen saturation was 92 to 99% on room air pretest and after exercise. The oxygen monitor did not function during exercise, except for one reading at 95%, which was at mid exercise. Her resting EKG showed normal sinus rhythm, within normal limits. Her EKG at peak showed [address] depressions in leads II, III, aVF, and V5 and V6. Summary: Normal resting EKG. Fair exercise tolerance. Borderline EKG changes for ischemia by ST segment changes develop with the stress test at 75% protected maximal heart rate for age. Myocardial perfusion imaging showed probably normal myocardial perfusion images. Suspect shifting breast artifact anterior wall. Normal left ventricular volume and systolic function. Mildly elevated LHR. Elevated LHR is independent predictor of adverse cardiac event. Submaximal exercise. The patient is 74% of maximal to heart rate (target heart rate 85% or greater). Please correlate with stress EKG report. - HOSPITAL COURSE Hospital Course: The patient was placed in observation given her chest pain and her heart score was 4. She was also found to be anemic and her iron studies were suggestive of iron deficiency anemia. Her hemoglobin has been stable without evidence of bleeding during this hospitalization. It is likely that she is anemic secondary to her abnormal uterine bleeding for which she is being worked up by gynecology. She underwent stress test and the exercise portion revealed nonspecific ST segment changes. Myocardial perfusion imaging did not reveal any obvious defect. A lipid panel was obtained and her LDL was slightly elevated at 104. Her A1c was also found to be elevated at 6.1%. The patient was counseled on the diagnosis of prediabetes. She was discharged home in a stable condition. She was asked to return to the emergency department or follow-up with her behavioral health professional if she continues to have episodes of chest pain. She has been chest pain-free throughout this hospitalization. - ALLERGIES Allergies/Adverse Reactions: Allergies Allergy/AdvReac Type Severity Reaction Status Date / Time No Known Drug Allergies Allergy Verified 11/06/20 12:40 - MEDICATIONS Home Medications: Ambulatory Orders Medication Instructions Recorded Confirmed Bupropion HCl [Bupropion Xl] 300 mg ORAL DAILY 03/21/15 11/06/20 Ascorbic Acid 500 mg PO DAILY 06/13/20 11/06/20 Losartan [Cozaar] 50 mg PO QPM 06/13/20 11/06/20 Metoprolol Succinate [Toprol Xl] 50 mg PO QPM 06/13/20 11/06/20 Ferrous Sulfate 325 mg PO BIDWM #60 tab 11/07/20 11/06/20 - PHYSICAL EXAM AT DISCHARGE General Appearance: positive: No acute distress, Alert Eyes Bilateral: positive: Normal inspection ENT: positive: ENT inspection nml Neck: positive: Nml inspection Respiratory: positive: Chest non-tender, No respiratory distress. negative: Wheezes, Rales Cardiovascular: positive: Regular rate & rhythm, No murmur. negative: Tachycardia, Systolic murmur Abdomen: positive: Non-tender, No distention. negative: Tenderness Skin: positive: Warm, Dry Extremities: positive: Full ROM, No pedal edema Neurologic/Psychiatric: positive: Oriented x3, Motor nml. negative: Disoriented to person, Disoriented to place, Disoriented to time Physical Exam Other/Comments: Vital Signs - 24 hr 11/06/20 11/07/20 11/07/20 20:04 00:30 05:00 Temperature 36.5 C 36.7 C 36.7 C Heart Rate [ 71 60 Brachial] Heart Rate [ 60 Monitoring electrodes] Respiratory 18 18 16 Rate Blood Pressure 138/75 H [Left Brachial artery] Blood Pressure 122/70 112/68 [Right Brachial artery] O2 Saturation 100 98 100 11/07/20 11/07/20 11/07/20 08:25 13:00 15:49 Temperature 36.7 C 37.4 C 37 C Heart Rate [ 61 59 L 86 Brachial] Heart Rate [ Monitoring electrodes] Respiratory 18 17 18 Rate Blood Pressure [Left Brachial artery] Blood Pressure 109/62 112/62 104/71 [Right Brachial artery] O2 Saturation 99 98 97 Oxygen O2 Source Room air - LABS Result Diagrams: 11/07/20 03:50 11/07/20 03:50 Other Lab Results: Laboratory Results - last 24 hr 11/06/20 11/06/20 11/06/20 14:52 16:12 21:57 WBC RBC Hgb Hct MCV MCH MCHC RDW Plt Count MPV Neut # (Auto) Lymph # (Auto) [place] # (Auto) Eos # (Auto) Baso # (Auto) Absolute Nucleated RBC Nucleated RBC % Sodium Potassium Chloride Carbon Dioxide Anion Gap BUN Creatinine Estimated GFR (MDRD) Glucose Estimat Average Glucose Hemoglobin A1c % Calcium Troponin I High Sens 2.9 3.2 Triglycerides Cholesterol LDL Cholesterol, Calc VLDL Cholesterol HDL Cholesterol LDL/HDL Ratio Cholesterol/HDL Ratio Nasal Adenovirus (PCR) NOT DETECTED Nasal B. parapertussis DNA (PCR) NOT DETECTED Nasal Coronavir 229E PCR NOT DETECTED Nasal Coronavir HKU1 PCR NOT DETECTED Nasal Coronavir NL63 PCR NOT DETECTED Nasal Coronavir OC43 PCR NOT DETECTED Nasal Enterovir/Rhinovir PCR NOT DETECTED Nasal Influenza B PCR NOT DETECTED Nasal Influenza A PCR NOT DETECTED Nasal Parainfluen 1 PCR NOT DETECTED Nasal Parainfluen 2 PCR NOT DETECTED Nasal Parainfluen 3 PCR NOT DETECTED Nasal Parainfluen 4 PCR NOT DETECTED Nasal RSV (PCR) NOT DETECTED Nasal B.pertussis DNA PCR NOT DETECTED Nasal C.pneumoniae (PCR) NOT DETECTED Jesse Human Metapneumo PCR NOT DETECTED Nasal M.pneumoniae (PCR) NOT DETECTED Nasal SARS-CoV-2 (PCR) NOT DETECTED 11/07/20 11/07/20 11/07/20 03:50 03:50 03:50 WBC 7.5 RBC 3.82 L Hgb 8.2 L Hct 27.9 L MCV 73.0 L MCH 21.5 L MCHC 29.4 L RDW 16.9 H Plt Count 216 MPV 12.5 H Neut # (Auto) 4.4 Lymph # (Auto) 2.3 [place] # (Auto) 0.6 Eos # (Auto) 0.2 Baso # (Auto) 0.0 Absolute Nucleated RBC 0.02 Nucleated RBC % 0.3 Sodium 134 L Potassium 4.3 Chloride 101 Carbon Dioxide 25 Anion Gap 8.0 BUN 13 Creatinine 0.6 Estimated GFR (MDRD) 108 Glucose 108 H Estimat Average Glucose Hemoglobin A1c % Calcium 8.9 Troponin I High Sens 2.5 Triglycerides Cholesterol LDL Cholesterol, Calc VLDL Cholesterol HDL Cholesterol LDL/HDL Ratio Cholesterol/HDL Ratio Nasal Adenovirus (PCR) Nasal B. parapertussis DNA (PCR) Nasal Coronavir 229E PCR Nasal Coronavir HKU1 PCR Nasal Coronavir NL63 PCR Nasal Coronavir OC43 PCR Nasal Enterovir/Rhinovir PCR Nasal Influenza B PCR Nasal Influenza A PCR Nasal Parainfluen 1 PCR Nasal Parainfluen 2 PCR Nasal Parainfluen 3 PCR Nasal Parainfluen 4 PCR Nasal RSV (PCR) Nasal B.pertussis DNA PCR Nasal C.pneumoniae (PCR) Jesse Human Metapneumo PCR Nasal M.pneumoniae (PCR) Nasal SARS-CoV-2 (PCR) 11/07/20 11/07/20 03:50 03:50 WBC RBC Hgb Hct MCV MCH MCHC RDW Plt Count MPV Neut # (Auto) Lymph # (Auto) [place] # (Auto) Eos # (Auto) Baso # (Auto) Absolute Nucleated RBC Nucleated RBC % Sodium Potassium Chloride Carbon Dioxide Anion Gap BUN Creatinine Estimated GFR (MDRD) Glucose Estimat Average Glucose 128 H Hemoglobin A1c % 6.1 H Calcium Troponin I High Sens Triglycerides 91 Cholesterol 181 LDL Cholesterol, Calc 104 VLDL Cholesterol 18 HDL Cholesterol 59 L LDL/HDL Ratio 1.8 Cholesterol/HDL Ratio 3.1 Nasal Adenovirus (PCR) Nasal B. parapertussis DNA (PCR) Nasal Coronavir 229E PCR Nasal Coronavir HKU1 PCR Nasal Coronavir NL63 PCR Nasal Coronavir OC43 PCR Nasal Enterovir/Rhinovir PCR Nasal Influenza B PCR Nasal Influenza A PCR Nasal Parainfluen 1 PCR Nasal Parainfluen 2 PCR Nasal Parainfluen 3 PCR Nasal Parainfluen 4 PCR Nasal RSV (PCR) Nasal B.pertussis DNA PCR Nasal C.pneumoniae (PCR) Jesse Human Metapneumo PCR Nasal M.pneumoniae (PCR) Nasal SARS-CoV-2 (PCR) - FOLLOW UP Follow Up: She was asked to follow-up with her primary care provider to monitor her iron deficiency anemia and to continue follow-up with her ethylbenzene converter helper regarding her abnormal uterine bleeding. - TIME SPENT Time Spent in Discharge (Minutes): 31
--- NOTE | 2020-11-07 17:51 | Nuclear Medicine Report ---
PROCEDURE: Rest and exercise myocardial perfusion SPECT with gated imaging and ejection fraction INDICATIONS: Chest pain. RADIOPHARMACEUTICAL: 14.5 mCi Tc-99m Myoview IV at rest and 41.7 mCi Tc-99m Myoview IV at peak exerc ise. [id number] was performed. TECHNIQUE: Radiopharmaceutical was injected at peak stress test, and also at rest. SPECT images wer e obtained. SPECT myocardial perfusion images were displayed in short axis, horizontal long axis, an d vertical long axis views. Gated images were reviewed using AutoQUANT software. COMPARISON: None available. FINDINGS: Raw data: There is good myocardial labeling by radiotracer. No significant motion artifacts. Lung- to-heart ratio is (normal is less than 0.49 for tetrafosmin tracer). Left ventricle function: Gated images demonstrate normal left ventricle wall thickening. No segment al wall motion abnormality. No transient ischemic dilation; TID is 0.88 (normal less than 1.3). The left ventricle resting end-diastolic volume is normal. Left ventricle stress ejection fraction is 6 8%; normal values are above 45%. Myocardial perfusion: There is moderate size, [id number] severe, reversible perfusion defect in the anterior apex. On prone imaging, the defect is resolved. Instead, there is a moderate size, m ild defect in the anterior septum. The findings are suggestive of shifting breast artifacts. There is otherwise normal distribution of activity in the left and right ventricular myocardium. IMPRESSION: 1. Probably normal myocardial perfusion images. Suspect shifting breast artifact anterior wall. 2. Normal left ventricular volume and systolic function. 3. Mildly elevated LHR. Elevated LHR is a independent predictor of adverse cardiac event. 4. Submaximal exercise. The patient is 74% of maximum predicted heart rate (target heart rate 85% or greater). Please correlate with stress EKG report job. PQRS ATTESTATIONS: Measure 322 - Is this imaging test primarily performed on a low-risk surgery patient for preoperative evaluation within 30 days preceding their low-risk non-cardiac surgery? Low-risk surgery is defined as cardiac or myocardial infarction less than 1%, including (but not limited to) endoscopic pr ocedures, superficial procedures, cataract surgery, and excisional breast surgery: Answer: No Measure 323 - Is this imaging test performed primarily for the monitoring of an asymptomatic patient who had percutaneous coronary intervention on the visit date or within 2 years of the visit date? An swer: No Measure 324 - Is this imaging test performed primarily for the initial detection and risk assessment on an asymptomatic, low coronary heart disease patient? Low CHD risk definition = clinicians should consider the maximum number of available patient factors used to estimate risk based on Cassandra (A TP III criteria), typically age, gender, diabetes, smoking status, and use of blood pressure medicati on, and integrate age appropriate estimates for missing elements, such as LDL or standard blood press ure. Answer: No Reviewed by: Dagoberto Carlton MD on 11/07/2020 5:49 PM PDT Approved by: Dagoberto Carlton MD on 11/07/2020 5:49 PM PDT Station ID: [id number]
[2020-11-07 18:40] VITALS: BP 119/74
== END 2020-11-07 18:51 | disposition home or self-care (01) ==
LOC: ED 12:35 → MS3 14:01
PROVIDERS: ADMIT Internal Medicine; ATTEND Internal Medicine
DX: R07.89 Other chest pain (principal); D50.0 Iron deficiency anemia secondary to blood loss (chronic); N93.9 Abnormal uterine and vaginal bleeding, unspecified; I10 Essential (primary) hypertension; R73.03 Prediabetes
CPT/HCPCS: 0202U; 36415; 71045; 78452; 80048; 80053; 80061; 82728; 83036; 83540; 83690; 84443; 84466; 84484; 84703; 85025; 93005; 93017; 99284; 99285; A9270; A9500; G0378; 82272; 83721

== ENCOUNTER 2021-01-02 00:01 | Emergency (ER) | payer OTHER ==
[2021-01-02 01:01] LABS: BILIRUBIN,URINE NEGATIVE (NEGATIVE); GLUCOSE, URINE (UA) NEGATIVE (NEGATIVE); KETONES,URINE (UA) NEGATIVE (NEGATIVE); LEUKOCYTE ESTERASE, URINE NEGATIVE (NEGATIVE); NITRITE,URINE NEGATIVE (NEGATIVE); OCCULT BLOOD,URINE LARGE (NEGATIVE); PROTEIN,URINE NEGATIVE (NEGATIVE); UROBILINOGEN,URINE 0.2 (NORMAL) E.U./dL (NORMAL)
[2021-01-02 01:03] LABS: ALBUMIN 3.8 g/dL (3.2-5.5); BILIRUBIN,TOTAL 0.4 mg/dL (0.2-1.0); CALCIUM 8.8 mg/dL (8.5-10.3); CREATININE 1.1 mg/dL (0.4-1.0); POTASSIUM 4.2 mmol/L (3.5-5.0); TOTAL PROTEIN 7.5 g/dL (6.7-8.2)
[2021-01-02 01:10] LABS: BACTERIA,URINE None Seen /HPF (None Seen); CLARITY,URINE CLEAR (CLEAR); HCG UR QUAL NEGATIVE; RBC,URINE TNTC /HPF (0-5); SQUAMOUS EPITHELIAL CELL,UR RARE Squamous (<= Few); WBC,URINE 0-3 /HPF (0-5)
[2021-01-02 01:21] LABS: BASOPHILS % (AUTO) 0.5 %; EOSINOPHILS # (AUTO) 0.2 10^3/uL (0.0-0.7); HCT - HEMATOCRIT 26.8 % (37.0-47.0); HGB - HEMOGLOBIN 7.8 g/dL (12.0-16.0); LYMPHOCYTES # (AUTO) 2.6 10^3/uL (1.5-3.5); LYMPHOCYTES % (AUTO) 31.6 %; MEAN CORPUSCULAR HEMOGLOBIN 22.7 pg (27.0-31.0); MEAN CORPUSCULAR HGB CONC 29.1 g/dL (32.0-36.0); MEAN CORPUSCULAR VOLUME 78.1 fL (81.0-99.0); MEAN PLATELET VOLUME 12.7 fL (7.9-10.8); MONOCYTES # (AUTO) 0.9 10^3/uL (0.0-1.0); MONOCYTES % (AUTO) 11.2 %; NEUTROPHILS # (AUTO) 4.3 10^3/uL (1.5-6.6); NEUTROPHILS % (AUTO) 53.3 %; PLT - PLATELET COUNT 211 10^3/uL (130-450); RED BLOOD COUNT 3.43 10^6/uL (4.20-5.40); RED CELL DISTRIBUTION WIDTH 19.4 % (12.0-15.0); WHITE BLOOD COUNT 8.1 x10^3/uL (4.8-10.8)
--- NOTE | 2021-01-02 01:54 | ED Physician Documentation ---
PD HPI FEMALE - Stated complaint Stated Complaint: FEMALE - Chief complaint Chief Complaint: Abd Pain - History obtained from History obtained from: Patient - History of Present Illness Timing - onset: How many days ago (2-3) Timing - details: Gradual onset, Intermittant Pain level max: 2 (right pelvic pain, episodic) Pain level max: 0 Associated symptoms: Pelvic pain, Vaginal bleeding. 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 Mild lightheadedness. Denies dyspnea. Mild intermittent right pelvic pain. She has iron deficiency anemia, says she is compliant with medications including iron supplements Review of Systems Constitutional: denies: Fever, Chills, Sweats Cardiac: reports: Reviewed and negative Respiratory: reports: Reviewed and negative GI: reports: Reviewed and negative : reports: Vaginal bleeding. 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: Endometriosis : None HEENT: None Psych: Depression Musculoskeletal: None Derm: None - Past Surgical History Past Surgical History: Yes General: Other /PURE CULTURE OPERATOR: Other - Present Medications Home Medications: Ambulatory Orders Medication Instructions Recorded Confirmed Bupropion HCl [Bupropion Xl] 300 mg ORAL DAILY 03/21/15 11/06/20 Ascorbic Acid 500 mg PO DAILY 06/13/20 11/06/20 Losartan [Cozaar] 50 mg PO QPM 06/13/20 11/06/20 Metoprolol Succinate [Toprol Xl] 50 mg PO QPM 06/13/20 11/06/20 Ferrous Sulfate 325 mg PO BIDWM #60 tab 11/07/20 11/06/20 Medroxyprogesterone Acetate 10 mg PO DAILY #14 tablet 01/02/21 [Provera] - Allergies Allergies/Adverse Reactions: Allergies Allergy/AdvReac Type Severity Reaction Status Date / Time No Known Drug Allergies Allergy Verified 01/02/21 00:12 - Social History Does the pt smoke?: No Smoking Status: Never smoker Does the pt drink ETOH?: Yes Does the pt have substance abuse?: No - Immunizations Immunizations are current?: Yes - POLST Patient has POLST: No PD ED PE NORMAL - Vitals Vital signs reviewed: Yes - General General: Alert and oriented X 3, No acute distress, Well developed/nourished - HEENT HEENT: Moist mucous membranes - Neck Neck: Supple, no meningeal sign - Cardiac Cardiac: RRR, No murmur - Respiratory Respiratory: No respiratory distress, Clear bilaterally - Abdomen Abdomen: Soft, Non tender - Back Back: No CVA TTP - Derm Derm: Normal color PD ED PE EXPANDED - Female Female : Vaginal Bleeding, 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 No: CMT, Tissue present Results - Vitals Vitals: Vital Signs - 24 hr 01/02/21 01/02/21 01/02/21 00:12 00:15 02:21 Temperature 36.5 C 36.5 C Heart Rate 87 87 61 Respiratory 16 16 Rate Blood Pressure 157/66 H 157/66 H 115/81 H O2 Saturation 99 99 01/02/21 01/02/21 04:00 06:10 Temperature 36.5 C Heart Rate 60 61 Respiratory 16 18 Rate Blood Pressure 116/80 132/66 H O2 Saturation 100 100 Oxygen O2 Source Room air - Labs Labs: Laboratory Tests 01/02/21 01/02/21 01/02/21 00:25 00:30 00:30 WBC 8.1 RBC 3.43 L Hgb 7.8 L Hct 26.8 L MCV 78.1 L MCH 22.7 L MCHC 29.1 L RDW 19.4 H Plt Count 211 MPV 12.7 H Neut # (Auto) 4.3 Lymph # (Auto) 2.6 [place] # (Auto) 0.9 Eos # (Auto) 0.2 Baso # (Auto) 0.0 Absolute Nucleated RBC 0.00 Nucleated RBC % 0.0 Sodium 137 Potassium 4.2 Chloride 103 Carbon Dioxide 25 Anion Gap 9.0 BUN 17 Creatinine 1.1 H Estimated GFR (MDRD) 54 L Glucose 107 H Calcium 8.8 Total Bilirubin 0.4 AST 12 ALT 14 Alkaline Phosphatase 64 Total Protein 7.5 Albumin 3.8 Globulin 3.7 Albumin/Globulin Ratio 1.0 Lipase 27 Urine Color YELLOW Urine Clarity CLEAR Urine pH 7.0 Ur Specific [place] 1.020 Urine Protein NEGATIVE Urine Glucose (UA) NEGATIVE Urine Ketones NEGATIVE Urine Occult Blood LARGE H Urine Nitrite NEGATIVE Urine Bilirubin NEGATIVE Urine Urobilinogen 0.2 (NORMAL) Ur Leukocyte Esterase NEGATIVE Urine RBC TNTC H Urine WBC 0-3 Ur Squamous Epith Cells RARE Squamous Urine Bacteria None Seen Ur Microscopic Review INDICATED Urine Culture Comments NOT INDICATED Urine HCG, Qual NEGATIVE 01/02/21 02:27 WBC RBC Hgb 7.8 L Hct 27.3 L MCV MCH MCHC RDW Plt Count MPV Neut # (Auto) Lymph # (Auto) [place] # (Auto) Eos # (Auto) Baso # (Auto) Absolute Nucleated RBC Nucleated RBC % Sodium Potassium Chloride Carbon Dioxide Anion Gap BUN Creatinine Estimated GFR (MDRD) Glucose Calcium Total Bilirubin AST ALT Alkaline Phosphatase Total Protein Albumin Globulin Albumin/Globulin Ratio Lipase Urine Color Urine Clarity Urine pH Ur Specific [place] Urine Protein Urine Glucose (UA) Urine Ketones Urine Occult Blood Urine Nitrite Urine Bilirubin Urine Urobilinogen Ur Leukocyte Esterase Urine RBC Urine WBC Ur Squamous Epith Cells Urine Bacteria Ur Microscopic Review Urine Culture Comments Urine HCG, Qual - Rads (name of study) pelvic US Radiology: Prelim report reviewed, See rad report PD MEDICAL DECISION MAKING - ED course Complexity details: reviewed old records, reviewed results, re-evaluated patient, considered differential, d/w patient ED course: stable vital signs throughout ED stay. anemia on initial h/h, unchanged on 2-h our repeat (hgb 7.8 on both results). indices are low, c/w reported h/o iron deficiency anemia. She was admitted to [facility] in October for chest pain, incidentally noted to have 7.6 hemoglobin on that visit with increase by the next day to 8.2 without specific intervention (such as transfusion). [facility] records also indicate patient had similar symptoms May 2020 for which she was taken to same-day (outpatient) surgery for hysteroscopy and endometrial biopsy (biopsies were negative for malignancy). I discussed the case with Dr. Grijalva, who recommends pelvic US and Provera 20mg PO with rx for Provera 10mg PO QD. Pelvis US shows thickened heterogeneous endometrium as well as left ovarian cyst 3.8 cm, scant free fluid in pelvis. On reevaluation, she is stable, standing at bedside in NAD. Results d/w patient and she is comfortable with plan. I encouraged her to return if worse in any way and to contact her landing worker this morning when the office opens to arrange for next available appointment Departure - Departure Disposition: 01 Home, Self Care Clinical Impression: Abnormal uterine bleeding Anemia Qualifiers: Anemia type: iron deficiency Iron deficiency anemia type: unspecified iron deficiency Qualified Code(s): D50.9 - Iron deficiency anemia, unspecified Condition: Good Instructions: ED Anemia Iron Deficiency, ED Bleed Irregular Vaginal Prescriptions: Medroxyprogesterone Acetate [Provera] 10 mg PO DAILY #14 tablet Discharge Date/Time: 01/02/21 06:10
[2021-01-02 02:32] LABS: HCT - HEMATOCRIT 27.3 % (37.0-47.0); HGB - HEMOGLOBIN 7.8 g/dL (12.0-16.0)
[2021-01-02 06:11] VITALS: BP 132/66
--- NOTE | 2021-01-02 08:14 | Ultrasound Report ---
PROCEDURE: Pelvic w/Transvag+Doppler Comp INDICATIONS: vaginal bleeding TECHNIQUE: Real-time scanning was performed of the pelvic organs, with image documentation. Additional endovagi nal scanning was necessary due to incomplete visualization of the adnexal and endometrial structures by transabdominal scanning. COMPARISON: None. FINDINGS: No pathologic free abdominal or pelvic fluid. Scant pelvic free fluid. Uterus: Uterus is prominent in size at 11.0 x 7.4 x 5.7 cm. Uterine volume measured 243 mL. The end ometrium measures 37 mm in combined thickness. No focal endometrial mass or focal vascularity Ovaries: Right ovary measures 3.1 x 2.8 x 1.5 cm. Right ovarian volume measures 6.8 mL. Left ovary m easures 4.8 x 4.3 x 3.5 cm with ovarian volume of 37.8 mL. Normal vascular waveforms bilaterally. The re is a simple ovarian cyst on the left measuring up to 3.8 cm in size. IMPRESSION: 1. Thickened, heterogeneous endometrium measuring up to 3.7 cm. Follow-up recommended. 2. Simple left ovarian cyst measuring up to 3.8 cm. 3. No sonographic evidence for ovarian torsion. No significant discrepancy with initial interpretation by overnight radiologist. Reviewed by: Kalen Collins MD on 01/02/2021 8:13 AM PDT Approved by: Kalen Collins MD on 01/02/2021 8:13 AM PDT Station ID: [id number]
== END 2021-01-02 06:10 | disposition home or self-care (01) ==
LOC: ED 00:01
DX: N93.9 Abnormal uterine and vaginal bleeding, unspecified (principal); D50.9 Iron deficiency anemia, unspecified; N83.202 Unspecified ovarian cyst, left side; R93.89 Abnormal findings on diagnostic imaging of other specified body structures; I10 Essential (primary) hypertension
CPT/HCPCS: 36415; 76830; 76856; 80053; 81001; 81025; 83690; 85014; 85018; 85025; 93975; 99284; A9270; 81003; 87086

== ENCOUNTER 2021-02-10 22:42 | Inpatient (IN) | payer OTHER ==
[2021-02-10 23:28] LABS: BASOPHILS % (AUTO) 0.4 %; EOSINOPHILS # (AUTO) 0.3 10^3/uL (0.0-0.7); EOSINOPHILS % (AUTO) 2.5 %; HCT - HEMATOCRIT 22.6 % (37.0-47.0); LYMPHOCYTES # (AUTO) 2.2 10^3/uL (1.5-3.5); LYMPHOCYTES % (AUTO) 21.2 %; MEAN CORPUSCULAR HEMOGLOBIN 21.7 pg (27.0-31.0); MEAN CORPUSCULAR HGB CONC 28.8 g/dL (32.0-36.0); MEAN CORPUSCULAR VOLUME 75.3 fL (81.0-99.0); MEAN PLATELET VOLUME 11.2 fL (7.9-10.8); MONOCYTES # (AUTO) 0.8 10^3/uL (0.0-1.0); MONOCYTES % (AUTO) 7.8 %; NEUTROPHILS % (AUTO) 67.7 %; PLT - PLATELET COUNT 238 10^3/uL (130-450); RED CELL DISTRIBUTION WIDTH 17.4 % (12.0-15.0); WHITE BLOOD COUNT 10.4 x10^3/uL (4.8-10.8)
[2021-02-10] MEDS ORDERED: SODIUM CHLORIDE 0.9% 1,000 ML IV STA (23:31)
[2021-02-10 23:34] LABS: HGB - HEMOGLOBIN 6.5 g/dL (12.0-16.0); SLIDE REVIEW? Indicated
[2021-02-10 23:37] LABS: ALBUMIN 3.9 g/dL (3.2-5.5); ALBUMIN/GLOBULIN RATIO 1.1 (1.0-2.2); BILIRUBIN,TOTAL 0.5 mg/dL (0.2-1.0); CALCIUM 8.9 mg/dL (8.5-10.3); CREATININE 0.7 mg/dL (0.4-1.0); POTASSIUM 3.9 mmol/L (3.5-5.0); TOTAL PROTEIN 7.5 g/dL (6.7-8.2)
--- NOTE | 2021-02-10 23:47 | ED Physician Documentation ---
PD HPI FEMALE - Stated complaint Stated Complaint: AB PX/ HEAVY BLEEDING - Chief complaint Chief Complaint: Abd Pain - History obtained from History obtained from: Patient, Family - History of Present Illness Timing - onset: How many days ago (3) Timing - duration: Days (3) Timing - details: Gradual onset, Still present Associated symptoms: Abdominal pain, Vaginal bleeding Contributing factors: No: OB-SUPERINTENDENT GENERAL History: Other (vaginal bleeding X 2 years s/p hysteroscopy with biopsy) Similar symptoms before: Has not had sx before Recently seen: Not recently seen - Additional information Additional information: 45-year-old female with a history of abnormal vaginal bleeding over the past 2 years has developed abdominal pain over the past week that has come and gone today the pain has persisted and worsened throughout the evening and she has come to the emergency department with right upper quadrant abdominal pain. She states that she does not usually get nauseated with this. She does have pain that is worse after eating. She indicates that over the past 3 days she has had increased in her vaginal bleeding. She indicates that she usually bleeds about 3 weeks out of the month and there are at least a week of bleeding heavy enough to saturate a pad an hour. She has been saturating a pad an hour for the past 3 days. She has had prior evaluation of her vaginal bleeding with ultrasound MR and hysteroscopy. At hysteroscopy they did note endometriosis. The patient has inquired about the possibility of hysterectomy. She has been sent to the cloth brushing and sueding supervisor for iron deficiency anemia. In June of last year she had an IUD removed. Review of Systems Constitutional: denies: Fever Eyes: denies: Decreased vision Ears: denies: Ear pain Nose: denies: Congestion Throat: denies: Sore throat Cardiac: reports: Pedal edema (by the end of the day improved by morning). denies: Chest pain / pressure, Palpitations Respiratory: denies: Dyspnea, Cough GI: reports: Abdominal Pain, Nausea, Constipation. denies: Vomiting, Diarrhea : denies: Dysuria, Frequency Skin: denies: Rash Musculoskeletal: denies: Neck pain, Back pain, Extremity pain Neurologic: denies: Generalized weakness, Focal weakness, Numbness PD PAST MEDICAL HISTORY - Past Medical History Cardiovascular: Hypertension Respiratory: None Neuro: None Endocrine/Autoimmune: None GI: None SUPERINTENDENT GENERAL: Endometriosis : None HEENT: None Psych: Depression Musculoskeletal: None Derm: None - Past Surgical History Past Surgical History: Yes General: Other /SUPERINTENDENT GENERAL: Other - Present Medications Home Medications: Ambulatory Orders Medication Instructions Recorded Confirmed Bupropion HCl [Bupropion Xl] 300 mg ORAL DAILY 03/21/15 02/11/21 Ascorbic Acid 500 mg PO DAILY 06/13/20 02/11/21 Losartan [Cozaar] 50 mg PO QPM 06/13/20 02/11/21 Metoprolol Succinate [Toprol Xl] 50 mg PO QPM 06/13/20 02/11/21 Ferrous Sulfate 325 mg PO BIDWM #60 tab 11/07/20 02/11/21 Medroxyprogesterone Acetate 10 mg PO DAILY #14 tablet 01/02/21 02/11/21 [Provera] - Allergies Allergies/Adverse Reactions: Allergies Allergy/AdvReac Type Severity Reaction Status Date / Time No Known Drug Allergies Allergy Verified 02/10/21 23:01 - Social History Does the pt smoke?: No Smoking Status: Never smoker Does the pt drink ETOH?: Yes Does the pt have substance abuse?: No - Immunizations Immunizations are current?: Yes - POLST Patient has POLST: No PD ED PE NORMAL - Vitals Vital signs reviewed: Yes (normal) - General General: Alert and oriented X 3, No acute distress, Well developed/nourished - HEENT HEENT: Atraumatic, PERRL, EOMI - Neck Neck: Supple, no meningeal sign, No bony TTP - Cardiac Cardiac: RRR, No murmur - Respiratory Respiratory: No respiratory distress, Clear bilaterally - Abdomen Abdomen: Soft, Other (RUQ tenderness with garding ) - Back Back: No CVA TTP, No spinal TTP - Derm Derm: Normal color, Warm and dry, No rash - Extremities Extremities: No deformity, No edema - Neuro Neuro: Alert and oriented X 3, director of event management 2-12 intact, No motor deficit, No sensory deficit, Normal speech Eye Opening: Spontaneous Motor: Obeys Commands Verbal: Oriented GCS Score: 15 - Psych Psych: Normal mood, Normal affect Results - Vitals Vitals: Vital Signs - 24 hr 02/10/21 02/11/21 02/11/21 22:50 00:51 00:58 Temperature 36.9 C 37.0 C 36.8 C Heart Rate 94 85 92 Respiratory 18 24 23 Rate Blood Pressure 130/78 128/77 130/75 O2 Saturation 99 02/11/21 02/11/21 02/11/21 01:13 01:17 01:55 Temperature 36.8 C 36.8 C Heart Rate 94 99 89 Respiratory 22 22 18 Rate Blood Pressure 166/73 H 166/73 H 142/86 H O2 Saturation 99 100 02/11/21 02/11/21 02/11/21 02:15 02:29 02:42 Temperature 36.7 C 37.2 C Heart Rate 83 79 85 Respiratory 24 19 20 Rate Blood Pressure 145/81 H 126/74 128/73 O2 Saturation 99 99 02/11/21 02/11/21 02/11/21 02:55 03:18 03:42 Temperature 37.0 C Heart Rate 72 86 75 Respiratory 18 22 23 Rate Blood Pressure 118/70 122/76 125/57 L O2 Saturation 99 98 02/11/21 04:26 Temperature Heart Rate 70 Respiratory 18 Rate Blood Pressure 125/79 O2 Saturation 100 Oxygen O2 Source Room air - Labs Labs: Laboratory Tests 02/10/21 02/10/21 02/10/21 22:57 23:15 23:15 WBC 10.4 RBC 3.00 L Hgb 6.5 L* Hct 22.6 L MCV 75.3 L MCH 21.7 L MCHC 28.8 L RDW 17.4 H Plt Count 238 MPV 11.2 H Neut # (Auto) 7.0 H Lymph # (Auto) 2.2 [place] # (Auto) 0.8 Eos # (Auto) 0.3 Baso # (Auto) 0.0 Absolute Nucleated RBC 0.00 Nucleated RBC % 0.0 Manual Slide Review Indicated WBC Morphology NORMAL APPEARANCE Platelet Estimate NORMAL (130-450,000) Platelet Morphology NORMAL APPEARANCE RBC Morph Micro Appear 2+ HYPOCHROMASIA Sodium 136 Potassium 3.9 Chloride 104 Carbon Dioxide 24 Anion Gap 8.0 BUN 15 Creatinine 0.7 Estimated GFR (MDRD) 90 Glucose 121 H Calcium 8.9 Total Bilirubin 0.5 AST 13 ALT 14 Alkaline Phosphatase 65 Total Protein 7.5 Albumin 3.9 Globulin 3.6 Albumin/Globulin Ratio 1.1 Lipase 32 Urine Color YELLOW Urine Clarity CLEAR Urine pH 6.0 Ur Specific [place] 1.020 Urine Protein NEGATIVE Urine Glucose (UA) NEGATIVE Urine Ketones NEGATIVE Urine Occult Blood LARGE H Urine Nitrite NEGATIVE Urine Bilirubin NEGATIVE Urine Urobilinogen 0.2 (NORMAL) Ur Leukocyte Esterase NEGATIVE Urine RBC 11-25 H Urine WBC 4-5 Ur Squamous Epith Cells NONE SEEN Urine Bacteria Moderate H Ur Microscopic Review INDICATED Urine Culture Comments NOT INDICATED Nasal Adenovirus (PCR) Nasal B. parapertussis DNA (PCR) Nasal Coronavir 229E PCR Nasal Coronavir HKU1 PCR Nasal Coronavir NL63 PCR Nasal Coronavir OC43 PCR Nasal Enterovir/Rhinovir PCR Nasal Influenza B PCR Nasal Influenza A PCR Nasal Parainfluen 1 PCR Nasal Parainfluen 2 PCR Nasal Parainfluen 3 PCR Nasal Parainfluen 4 PCR Nasal RSV (PCR) Nasal B.pertussis DNA PCR Nasal C.pneumoniae (PCR) Jesse Human Metapneumo PCR Nasal M.pneumoniae (PCR) Nasal SARS-CoV-2 (PCR) Blood Type Blood Type Recheck Antibody Screen Crossmatch IS Only 02/10/21 02/11/21 02/11/21 23:15 00:15 04:35 WBC RBC Hgb Hct MCV MCH MCHC RDW Plt Count MPV Neut # (Auto) Lymph # (Auto) [place] # (Auto) Eos # (Auto) Baso # (Auto) Absolute Nucleated RBC Nucleated RBC % Manual Slide Review WBC Morphology Platelet Estimate Platelet Morphology RBC Morph Micro Appear Sodium Potassium Chloride Carbon Dioxide Anion Gap BUN Creatinine Estimated GFR (MDRD) Glucose Calcium Total Bilirubin AST ALT Alkaline Phosphatase Total Protein Albumin Globulin Albumin/Globulin Ratio Lipase Urine Color Urine Clarity Urine pH Ur Specific [place] Urine Protein Urine Glucose (UA) Urine Ketones Urine Occult Blood Urine Nitrite Urine Bilirubin Urine Urobilinogen Ur Leukocyte Esterase Urine RBC Urine WBC Ur Squamous Epith Cells Urine Bacteria Ur Microscopic Review Urine Culture Comments Nasal Adenovirus (PCR) NOT DETECTED Nasal B. parapertussis DNA (PCR) NOT DETECTED Nasal Coronavir 229E PCR NOT DETECTED Nasal Coronavir HKU1 PCR NOT DETECTED Nasal Coronavir NL63 PCR NOT DETECTED Nasal Coronavir OC43 PCR NOT DETECTED Nasal Enterovir/Rhinovir PCR NOT DETECTED Nasal Influenza B PCR NOT DETECTED Nasal Influenza A PCR NOT DETECTED Nasal Parainfluen 1 PCR NOT DETECTED Nasal Parainfluen 2 PCR NOT DETECTED Nasal Parainfluen 3 PCR NOT DETECTED Nasal Parainfluen 4 PCR NOT DETECTED Nasal RSV (PCR) NOT DETECTED Nasal B.pertussis DNA PCR NOT DETECTED Nasal C.pneumoniae (PCR) NOT DETECTED Jesse Human Metapneumo PCR NOT DETECTED Nasal M.pneumoniae (PCR) NOT DETECTED Nasal SARS-CoV-2 (PCR) NOT DETECTED Blood Type O POSITIVE Blood Type Recheck O POSITIVE Antibody Screen NEGATIVE Crossmatch IS Only See Detail - Rads (name of study) Right upper quadrant ultrasound Radiology: Prelim report reviewed (Impression: 1. Cholelithiasis. No convincing evidence of cholecystitis.), EMP read indepedently (looks like a bad gallbladder with thickened wall giant stone in neck. ), See rad report PD MEDICAL DECISION MAKING - ED course Complexity details: reviewed old records, reviewed results, re-evaluated patient, considered differential, d/w patient, d/w family, d/w medical economics consultant ([place], SUPERINTENDENT GENERAL will admit to control bleeding and consider hysterectomy. Dr. Chaves indicates surgery for gallbladder may be delayed by several days secondary to scheduling. ) ED course: 45-year-old 6 para 5 SAB 1 who presents with right upper quadrant abdominal pain this evening is found to have critically low blood counts on initial evaluation. She is administered fluid when she arrives and she is administered a unit of blood. She continues to have vaginal bleeding. On examination the patient has right upper quadrant abdominal pain and she is te nder with guarding. At the time of ultrasound examination the patient is more comfortable and allows examination. She continues to have pain in the right upper quadrant despite medication. I reviewed the patient's ultrasound exam and found that she has a large stone in the neck of the gallbladder the gallbladder is contracted has a thickened wall and I interpreted the images as Cholecystitis. Her history is consistent with cholecystitis. I reviewed the patient's medical record and found that she has had prior investigation of her vaginal bleeding and she is being treated for iron deficiency anemia. She does not appear to have malignancy but does appear to have endometriosis. I consulted the SUPERINTENDENT GENERAL surgeon (DR. Limon) who recommended attempting TXA and or estrogen given IV to slow the bleeding. The surgeon indicated she needs to have the uterus out and the patient would like to have her uterus out. She is administered TXA. She feels her bleeding may have slowed. This patient needs 2 surgeries and is critically anemic and bleeding. SUPERINTENDENT GENERAL has agreed to admit the patient to try to control the bleeding and consider hysterectomy. Departure - Departure Disposition: 66 [facility] DC/Xfer Clinical Impression: Abnormal vaginal bleeding with endometrial thickness greater than 5 mm present on transvaginal ultrasound in postmenopausal patient, Cholecystitis Condition: Fair
[2021-02-11 00:09] LABS: PLATELET ESTIMATE, MANUAL NORMAL (130-450,000) (NORMAL); PLATELET MORPHOLOGY NORMAL APPEARANCE (NORMAL); RBC MORPHOLOGY (MULTIPLE) 2+ HYPOCHROMASIA (NORMAL); WBC MORPHOLOGY (MULTIPLE) NORMAL APPEARANCE (NORMAL)
[2021-02-11 00:47] LABS: BILIRUBIN,URINE NEGATIVE (NEGATIVE); CLARITY,URINE CLEAR (CLEAR); GLUCOSE, URINE (UA) NEGATIVE (NEGATIVE); KETONES,URINE (UA) NEGATIVE (NEGATIVE); LEUKOCYTE ESTERASE, URINE NEGATIVE (NEGATIVE); NITRITE,URINE NEGATIVE (NEGATIVE); OCCULT BLOOD,URINE LARGE (NEGATIVE); PROTEIN,URINE NEGATIVE (NEGATIVE); UROBILINOGEN,URINE 0.2 (NORMAL) E.U./dL (NORMAL)
[2021-02-11 00:52] LABS: BACTERIA,URINE Moderate /HPF (None Seen); SQUAMOUS EPITHELIAL CELL,UR NONE SEEN (<= Few)
[2021-02-11] MEDS ORDERED: TRANEXAMIC ACID 1,000 MG in SODIUM CHLORIDE 0.9% 100ML 100 ML IV STA (01:38)
[2021-02-11] MEDS ORDERED: KETOROLAC 30 MG/ML VIAL IVP STA ×2 (01:38→05:09)
[2021-02-11] MEDS ORDERED: TRANEXAMIC ACID 1,000 MG/10 ML VIAL ONE (01:51)
[2021-02-11] MEDS ORDERED: ONDANSETRON 4 MG/2 ML VIAL IVP PRN (04:46)
[2021-02-11 05:29] LABS: B. PARAPERTUSSIS- RESP PCR PAN NOT DETECTED; B. PERTUSSIS- RESP PCR PANEL NOT DETECTED; C. PNEUMONIAE- RESP PCR PANEL NOT DETECTED; CORONAVIRUS 229E-RESP PCR NOT DETECTED; CORONAVIRUS HKU1-RESP PCR NOT DETECTED; CORONAVIRUS NL63-RESP PCR NOT DETECTED; CORONAVIRUS OC43-RESP PCR NOT DETECTED; HUMAN METAPNEUMOVIRUS NOT DETECTED; INFLUENZA A- RESP PCR PANEL NOT DETECTED; INFLUENZA B - RESP PCR PANEL NOT DETECTED; M. PNEUMONIAE- RESP PCR PANEL NOT DETECTED; PARAINFLUENZA VIRUS 1 NOT DETECTED; PARAINFLUENZA VIRUS 2 NOT DETECTED; PARAINFLUENZA VIRUS 3 NOT DETECTED; PARAINFLUENZA VIRUS 4 NOT DETECTED; RHINOVIRUS/ENTEROVIRUS NOT DETECTED; RSV- RESP PCR PANEL NOT DETECTED; SARS-CoV-2 -RESP PCR PANEL NOT DETECTED
[2021-02-11] MEDS ORDERED: ACETAMINOPHEN 325 MG TABLET PO STA (05:48)
[2021-02-11] MEDS: SODIUM CHLORIDE 0.9% 1,000 ML IV SCH ×2 (07:10→21:57)
--- NOTE | 2021-02-11 07:39 | Ultrasound Report ---
PROCEDURE: Abdomen Limited INDICATIONS: RUQ pain TECHNIQUE: Real-time scanning was performed of the abdominal and retroperitoneal organs, with image documentatio n. COMPARISON: CT abdomen and pelvis dated 06/26/2018 FINDINGS: Liver: Liver is normal in size and homogeneous in echotexture. Gallbladder: Gallbladder contains a nonmobile stone within the gallbladder neck measuring 3.5 x 2.1 x 2.2 cm in size. There is mild wall thickening measuring 4.3 mm. No pericholecystic fluid. No report for abnormal sonographic Garg's sign. Biliary ducts: Intrahepatic bile ducts are non-dilated. Extrahepatic bile duct caliber measures 7 m m. Normal is 6-7 mm or less in diameter, or 10 mm or less post-cholecystectomy. Pancreas: Pancreas not well visualized on this examination. Kidneys: Right kidney is normal in size and echotexture. Right kidney measures 10.0 cm long; no hydr onephrosis or nephrolithiasis. No solid masses. IVC: Intrahepatic inferior vena cava is patent. IMPRESSION: Cholelithiasis with mild gallbladder wall thickening but no other sonographic findings to suggest acu te cholecystitis. Recommend continued clinical surveillance and follow-up imaging as needed. No significant discrepancy with initial interpretation by overnight radiologist. Reviewed by: Kalen Collins MD on 02/11/2021 7:38 AM PDT Approved by: Kalen Collins MD on 02/11/2021 7:38 AM PDT Station ID: [id number]
[2021-02-11] MEDS: buPROPion XL 150 MG TABLET PO SCH (08:26)
--- NOTE | 2021-02-11 09:29 | HISTORY & PHYSICAL EXAMINATION ---
Chief Complaint - Chief Complaint Chief Complaint: daily vaginal bleeding for over 2 years and right abdominal pain for a week History of Present Illness - Admitted From Admitted From:: ED - History Obtained From Records Reviewed: yes History obtained from: pt Exam Limitations: none - History of Present Illness HPI Comment/Other: She has had daily uterine bleeding for over 2 years. She had an ultrasound showing IMPRESSION: 1. Thickened, heterogeneous endometrium measuring up to 3.7 cm. Follow-up recommended. 2. Simple left ovarian cyst measuring up to 3.8 cm. 3. No sonographic evidence for ovarian torsion. No significant discrepancy with initial interpretation by overnight radiologist. Reviewed by: Kalen Collins MD on 01/02/2021 8:13 AM PDT Approved by: Kalen Collins MD on 01/02/2021 8:13 AM PDT She has daily right abdominal to right upper quadrant abdominal pain worse with eating for a week. Labs hct 22 otherwise unremarkable History - Past Medical History Cardiovascular: reports: Hypertension Respiratory: reports: None Neuro: reports: None Endocrine/Autoimmune: reports: None GI: reports: None STOREROOM CLERK: reports: Endometriosis : reports: None HEENT: reports: None Psych: reports: Depression Musculoskeletal: reports: None Derm: reports: None MRSA Hx?: No Other Past Medical History: Abnormal Ekg: October 2003 (Told she had a minor heart attack) - Past Surgical History General: reports: Other /STOREROOM CLERK: reports: Other - Family & Social History Family History Comment/Other: She reports her mother has a history of stroke. Her father is a diabetic. She has one sister who is also diabetic. No family history of heart disease. Her maternal aunt has a history of breast cancer. Her paternal aunt has a history of what is believed to be gastric cancer. Living Situation: With family Social History Notes: She lives at home with her . She has 3 daughters. 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 She is a non-smoker. Rarely drinks alcohol. - POLST Patient has POLST: No Meds/Allgy - Home Medications Home Medications: Ambulatory Orders Medication Instructions Recorded Confirmed Bupropion HCl [Bupropion Xl] 300 mg ORAL DAILY 03/21/15 02/11/21 Ascorbic Acid 500 mg PO DAILY 06/13/20 02/11/21 Losartan [Cozaar] 50 mg PO QPM 06/13/20 02/11/21 Metoprolol Succinate [Toprol Xl] 50 mg PO QPM 06/13/20 02/11/21 Ferrous Sulfate 325 mg PO BIDWM #60 tab 11/07/20 02/11/21 Medroxyprogesterone Acetate 10 mg PO DAILY #14 tablet 01/02/21 02/11/21 [Provera] - Allergies Allergies/Adverse Reactions: Allergies Allergy/AdvReac Type Severity Reaction Status Date / Time No Known Drug Allergies Allergy Verified 02/10/21 23:01 Review of Systems - Other Findings Other Findings: 10 pt ros as above otherwise unremarkable Exam - Vital Signs Reviewed Vital Signs: Yes Vital Signs: Vital Signs x48h Temp Pulse Pulse Resp BP BP Pulse Ox 02/11/21 06:19 36.7 C 74 20 118/81 H 100 02/11/21 06:00 37.6 C 81 20 125/86 H 99 02/11/21 05:37 36.8 C 73 15 111/75 99 02/11/21 04:55 36.4 C L 67 15 140/72 H 100 02/11/21 04:26 70 18 125/79 100 02/11/21 03:42 75 23 125/57 L 98 02/11/21 03:18 86 22 122/76 99 02/11/21 02:55 37.0 C 72 18 118/70 02/11/21 02:42 37.2 C 85 20 128/73 02/11/21 02:29 36.7 C 79 19 126/74 99 02/11/21 02:15 83 24 145/81 H 99 02/11/21 01:55 89 18 142/86 H 100 - Physical Exam General Appearance: positive: No acute distress, Alert Eyes Bilateral: positive: PERRL, EOMI, No scleral icterus Neck: positive: No JVD Respiratory: positive: No respiratory distress, Breath sounds nml Cardiovascular: positive: Regular rate & rhythm Abdomen: positive: Non-tender, No distention Neurologic/Psychiatric: positive: Oriented x3 Conclusion/Plan - Problem List (1) Abnormal vaginal bleeding with endometrial thickness greater than 5 mm present on transvaginal ultrasound in postmenopausal patient Conclusion/Plan: She has mild to moderate biliary cholic for 1 week. She does not have acute c holecystitis. Gallbladder surgery is not needed emergently. She has significant anemia. Agree with care and plan with transfusion and STOREROOM CLERK consult. - Lab Results Fish Bones: 02/10/21 23:15 02/10/21 23:15 - Diagnostic Imaging Results Diagnostic Imaging Results: positive: Read independently (single large gallstone)
--- NOTE | 2021-02-11 10:23 | HISTORY & PHYSICAL EXAMINATION ---
Chief Complaint - Chief Complaint Chief Complaint: Patient presented to ED with Right Upper Quadrant pain for past 3 days. History of Present Illness - Admitted From Admitted From:: ED. Patient has had worsening, RUQ abdominal pain for past 3 days. - History Obtained From History obtained from: Patient - History of Present Illness HPI Comment/Other: 45yo with history of Right upper quadrant pain and 3 days of heavy vaginal bleeding, changing a pad an hour since Thursday. Patient states she has had menses that last 3 weeks a month and only stops bleeding for a week a month and this has been going on for past 2 years. Patient is seen on [facility] and had IUD removed in 06/2020 because bleeding persisted. Patient took a week of Provera in December, she believes middle of the month and states it did not stop bleeding. Patient states she started spotting a week ago, then the last three days has had the heavy bleeding. Ultrasound in December 2020 displayed a thickened endometrium. Patient states she had some pain after eating and the right upper quadrant pain was worsening for past three days. 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 Patient has no history of STD's. 5 , all infants weighed 8 pounds and a few ounces. No history of Pre-Eclampsia, Gestational Diabetes or Hemorrhage. No history of retained placenta. Last child born in 2004.) - Family & Social History Family History: Mother: (In her 40's, 2002 of stroke.), Hypertension, Father: Alive and Well (CHTN, Type II diabetes on Insulin), Hypertension, Other family: Cancer (Maternal Aunt with breast CA, ? Aunt with Gastric Cancer. Patient stated Cancer on both sides of her family), CA (Patient states her PGM is still alive and has "heart" issues) Family History Comment/Other: She reports her mother has a history of stroke. Her father is a diabetic. She has one sister who is also diabetic. No family history of heart disease. Her maternal aunt has a history of breast cancer. Her paternal aunt has a history of what is believed to be gastric cancer. Living Situation: With spouse/s.o., With family Social History Notes: She lives at home with her . She has 3 daughters. 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 She is a non-smoker. Rarely drinks alcohol. - Substance History Use: Uses substance without health or social issues: NONE, Alcohol (Rarely has 1/2 can of beer, "Once in a blue meeks".) Dependence: Experiences withdrawal or developed tolerances: NONE - POLST Patient has POLST: No POLST Status: Full Code Meds/Allgy - Home Medications Home Medications: Ambulatory Orders Medication Instructions Recorded Confirmed Bupropion HCl [Bupropion Xl] 300 mg ORAL DAILY 03/21/15 02/11/21 Ascorbic Acid 500 mg PO DAILY 06/13/20 02/11/21 Losartan [Cozaar] 50 mg PO QPM 06/13/20 02/11/21 Metoprolol Succinate [Toprol Xl] 50 mg PO QPM 06/13/20 02/11/21 Ferrous Sulfate 325 mg PO BIDWM #60 tab 11/07/20 02/11/21 Medroxyprogesterone Acetate 10 mg PO DAILY #14 tablet 01/02/21 02/11/21 [Provera] - Allergies Allergies/Adverse Reactions: Allergies Allergy/AdvReac Type Severity Reaction Status Date / Time No Known Drug Allergies Allergy Verified 02/10/21 23:01 Review of Systems - Constitutional Constitutional: reports: Other (Occasionally dizzy.) - Other Findings Other Findings: Right upper quadrant abdominal pain for 3 days and heavy vaginal bleeding for three days. Exam - Vital Signs Vital Signs: Vital Signs x48h Temp Pulse Pulse Resp BP BP Pulse Ox 02/11/21 06:19 98.1 F 74 20 118/81 H 100 02/11/21 06:00 99.6 F 81 20 125/86 H 99 02/11/21 05:37 98.2 F 73 15 111/75 99 02/11/21 04:55 97.6 F L 67 15 140/72 H 100 02/11/21 04:26 70 18 125/79 100 02/11/21 03:42 75 23 125/57 L 98 02/11/21 03:18 86 22 122/76 99 02/11/21 02:55 98.6 F 72 18 118/70 02/11/21 02:42 98.9 F 85 20 128/73 02/11/21 02:29 98.0 F 79 19 126/74 99 - Physical Exam General Appearance: positive: No acute distress Eyes Bilateral: positive: Normal inspection Neck: positive: Nml inspection, Thyroid nml, No JVD Respiratory: positive: Chest non-tender, No respiratory distress, Breath sounds nml Cardiovascular: positive: Regular rate & rhythm, No murmur, No gallop Abdomen: positive: No organomegaly, Nml bowel sounds, Tenderness (Patient states palpation to right upper quadrant causes increase in pain, and it is very tender to paplation. No guarding or rebound noted on exam. Good bowel sounds in all quadrants.) Skin: positive: Pallor (Patient appears pale, but this is first encounter with patient.), Other Neurologic/Psychiatric: positive: Oriented x3, Mood/affect nml Conclusion/Plan - Problem List (1) Abdominal pain Conclusion/Plan: Right upper quadrant abdominal pain, Cholelithiasis. Dr. Chaves following. Menometrorrhagia with Severe Anemia due to Acute blood loss. Pelvic, Transvaginal Ultrasound Stat to assess endometrial lining. Pain control. If do not need to perform D and C today, will allow her to eat. Repeat CBC, Most likely will transfuse her one more unit of PRBC's if not more. Qualifiers: Abdominal location: generalized Qualified Code(s): R10.84 - Generalized abdominal pain (3) Anemia Qualifiers: Anemia type: iron deficiency Iron deficiency anemia type: unspecified iron deficiency Qualified Code(s): D50.9 - Iron deficiency anemia, unspecified - Lab Results Fish Bones: 02/10/21 23:15 02/10/21 23:15 - Diagnostic Imaging Results Diagnostic Imaging Results: positive: Prelim report reviewed (Cholelithiasis, Severe Anemia due to Dysfunctional Uterine bleeding, Menometrorraghia.)
[2021-02-11 11:39] LABS: BASOPHILS % (AUTO) 0.5 %; EOSINOPHILS # (AUTO) 0.2 10^3/uL (0.0-0.7); EOSINOPHILS % (AUTO) 2.5 %; HCT - HEMATOCRIT 26.5 % (37.0-47.0); HGB - HEMOGLOBIN 7.6 g/dL (12.0-16.0); LYMPHOCYTES % (AUTO) 23.3 %; MEAN CORPUSCULAR HEMOGLOBIN 22.4 pg (27.0-31.0); MEAN CORPUSCULAR HGB CONC 28.7 g/dL (32.0-36.0); MEAN CORPUSCULAR VOLUME 77.9 fL (81.0-99.0); MEAN PLATELET VOLUME 11.6 fL (7.9-10.8); MONOCYTES # (AUTO) 0.6 10^3/uL (0.0-1.0); MONOCYTES % (AUTO) 7.2 %; NEUTROPHILS # (AUTO) 5.7 10^3/uL (1.5-6.6); PLT - PLATELET COUNT 212 10^3/uL (130-450); RED CELL DISTRIBUTION WIDTH 18.5 % (12.0-15.0); WHITE BLOOD COUNT 8.7 x10^3/uL (4.8-10.8)
[2021-02-11 12:15] LABS: PLATELET ESTIMATE, MANUAL NORMAL (130-450,000) (NORMAL); PLATELET MORPHOLOGY NORMAL APPEARANCE (NORMAL); SLIDE REVIEW? Indicated
[2021-02-11 12:16] LABS: WBC MORPHOLOGY (MULTIPLE) NORMAL APPEARANCE (NORMAL)
[2021-02-11] MEDS ORDERED: ACETAMINOPHEN 325 MG TABLET PO SCH (12:22)
--- NOTE | 2021-02-11 13:52 | Ultrasound Report ---
PROCEDURE: Pelvic w/Transvaginal INDICATIONS: Dysfunctional uterine bleeding TECHNIQUE: Real-time scanning was performed of the pelvic organs, with image documentation. Additional endovagi nal scanning was necessary due to incomplete visualization of the adnexal and endometrial structures by transabdominal scanning. COMPARISON: Pelvic ultrasound 01/02/2021 FINDINGS: No pathologic free abdominal or pelvic fluid. Uterus: Uterus is enlarged measuring 13.4 x 5.7 x 8.3 cm. Volume measures 343 cc. The endometrium me asures 21.4 mm in combined thickness, compared to 37 mm on prior exam. It is heterogeneous demonstrat ing complex echogenicity. There is a polyp appearing focus within the endometrium measuring approxima tely 1.2 x 0.7 x 0.9 cm. Ovaries: Right ovary measures 3.6 x 2.2 x 2.5 cm, volume 10.1 cc.. Left ovary measures 5.3 x 3.0 x 3 .8 cm, volume 3.7 cc. IMPRESSION: 1. Thickened, persistent heterogeneous appearance of the endometrial complex with possible polyp. It is poorly visualized. If clinical concern persists, endometrial biopsy or potentially sonohysterogram may be obtained for further evaluation. Given persistent and complex appearance of the endometrium, adenomyosis cannot be excluded. Reviewed by: Rosie Menendez MD on 02/11/2021 1:51 PM PDT Approved by: Rosie Menendez MD on 02/11/2021 1:51 PM PDT Station ID: [id number]
--- NOTE | 2021-02-11 17:42 | HISTORY & PHYSICAL EXAMINATION ---
HPI - History Obtained From Records Reviewed: Old records reviewed History obtained from: Patient - History of Present Illness HPI Comment/Other: Patient is a 45 yo admitted with severe DUB and acute blood loss anemia with thickened endometrium Patient was seen in ED for RUQ pain and was found ot have cholelithiasis and thickened of the gallbladder wall. She was not deemed to meet surgical criteria. She also reported 3 days of heavy vaginal bleeding, changing a pad an hour since Thursday. Patient states she has had menses that last 3 weeks a month and only stops bleeding for a week a month and this has been going on for past 2 years. Patient is seen on [employer] [facility] and had IUD removed in 06/2020 because bleeding persisted. Patient took a week of Provera in December, she believes middle of the month and states it did not stop bleeding. Patient states she started spotting a week ago, then the last three days has had the heavy bleeding. Ultrasound in December 2020 displayed a thickened endometrium, reported to be 3.7 cm in thickness. She was found to have a HCT of 22.6. This is a decrease from when she was seen in October for DUB and had a HCT of 27.9. She has received 2 units of PRBC overnight. Pelvic us this am showed an EMS of 2.1 cm. Patient has had multiple presentations for DUB. Wants to proceed to OR for surgi moses management with hysteroscopy D&C. 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 PE: VS: 98.6 76 130/75 16 99 GEN: NAD HEAD: NCAT EYES: No scleral icterus or conjunctival injection CV: RRR RESP: CTAB, normal effort ABD: S&NT/ND PSYCH: appropriate affect NEURO: alert and oriented, normal gait and coordination EXT: SCDS in place A/P: 45 yo with DUB requiring transfusion and thickened endometrium Counseled patient regarding options Wants to proceed with hysteroscopy D&C and possible polypectomy Reviewed risks/benefits/alternatives to hysteroscopy/polpectomy Risks include, but are not limited to, bleeding, infection, damage to neatby tissue and organs. On average, expected EBL is minimal. In the event of an unanticipated blood loss, patient is willing to undergo transfusion. Risks of blood transfusion include infection as well as transfusion reaction Risk of HIV 1/2million nationwide Risk of Hepatitis 1/1 million Risks of transfusion reaction and mgt reviewed Infection risk low given that no incisions nae be made and we will be using physiologic orifices. Will provide IV abx in the event of uterine perforation. Damage to nearby tissue and organs was reviewed with emphasis on uterine perforation and management, which can include surgical intervention based on bleeding risk. Reviewed management of complications and efforts to avoid such outcomes but reviewed that they may occur despite our best efforts. Patient agreed to the aforementioned procedure and written informed consent was obtained. 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 Patient has no history of STD's. 5 , all infants weighed 8 pounds and a few ounces. No history of Pre-Eclampsia, Gestational Diabetes or Hemorrhage. No history of retained placenta. Last child born in 2004.) Social & Family Hx - Social History Does the pt smoke?: No Smoking Status: Never smoker Does the pt drink ETOH?: Yes Does the pt have substance abuse?: No - POLST Patient has POLST: No POLST Status: Full Code Meds/Allgy - Home Medications Home Medications: Ambulatory Orders Medication Instructions Recorded Confirmed Bupropion HCl [Bupropion Xl] 300 mg ORAL DAILY 03/21/15 02/11/21 Ascorbic Acid 500 mg PO DAILY 06/13/20 02/11/21 Losartan [Cozaar] 50 mg PO QPM 06/13/20 02/11/21 Metoprolol Succinate [Toprol Xl] 50 mg PO QPM 06/13/20 02/11/21 Ferrous Sulfate 325 mg PO BIDWM #60 tab 11/07/20 02/11/21 Medroxyprogesterone Acetate 10 mg PO DAILY #14 tablet 01/02/21 02/11/21 [Provera] - Allergies Allergies/Adverse Reactions: Allergies Allergy/AdvReac Type Severity Reaction Status Date / Time No Known Drug Allergies Allergy Verified 02/10/21 23:01 Exam - Vital Signs Vital Signs: Vital Signs x48h Temp Pulse Pulse Resp BP BP Pulse Ox 02/11/21 16:44 98.6 F 76 16 130/75 99 02/11/21 16:40 98.6 F 76 20 130/75 02/11/21 14:10 99.3 F 88 20 141/79 H 02/11/21 13:50 98.4 F 76 18 141/76 H Results - Lab Results Fish Bones: 02/11/21 11:31 02/10/21 23:15 Other Lab Results: Lab Results x24hrs 02/11/21 02/11/21 02/11/21 Range/Units 11:31 04:35 00:15 WBC 8.7 (4.8-10.8) x10^3/uL RBC 3.40 L (4.20-5.40) 10^6/uL Hgb 7.6 L (12.0-16.0) g/dL Hct 26.5 L (37.0-47.0) % MCV 77.9 L (81.0-99.0) fL MCH 22.4 L (27.0-31.0) pg MCHC 28.7 L (32.0-36.0) g/dL RDW 18.5 H (12.0-15.0) % Plt Count 212 (130-450) 10^3/uL MPV 11.6 H (7.9-10.8) fL Neut # (Auto) 5.7 (1.5-6.6) 10^3/uL Lymph # (Auto) 2.0 (1.5-3.5) 10^3/uL [place] # (Auto) 0.6 (0.0-1.0) 10^3/uL Eos # (Auto) 0.2 (0.0-0.7) 10^3/uL Baso # (Auto) 0.0 (0.0-0.1) 10^3/uL Absolute Nucleated RBC 0.00 x10^3/uL Nucleated RBC % 0.0 /100WBC Manual Slide Review Indicated WBC Morphology NORMAL APPEARANCE (NORMAL) Platelet Estimate NORMAL (130-450,000) (NORMAL) Platelet Morphology NORMAL APPEARANCE (NORMAL) RBC Morph Micro Appear 1+ POLYCHROMASIA (NORMAL) Sodium (135-145) mmol/L Potassium (3.5-5.0) mmol/L Chloride (101-111) mmol/L Carbon Dioxide (21-32) mmol/L Anion Gap (6-13) BUN (6-20) mg/dL Creatinine (0.4-1.0) mg/dL Estimated GFR (MDRD) (>89) Glucose (70-100) mg/dL Calcium (8.5-10.3) mg/dL Total Bilirubin (0.2-1.0) mg/dL AST (10-42) IU/L ALT (10-60) IU/L Alkaline Phosphatase (42-121) IU/L Total Protein (6.7-8.2) g/dL Albumin (3.2-5.5) g/dL Globulin (2.1-4.2) g/dL Albumin/Globulin Ratio (1.0-2.2) Lipase (22-51) U/L Urine Color Urine Clarity (CLEAR) Urine pH (5.0-7.5) PH Ur Specific [place] (1.002-1.030) Urine Protein (NEGATIVE) mg/dL Urine Glucose (UA) (NEGATIVE) mg/dL Urine Ketones (NEGATIVE) mg/dL Urine Occult Blood (NEGATIVE) Urine Nitrite (NEGATIVE) Urine Bilirubin (NEGATIVE) Urine Urobilinogen (NORMAL) E.U./dL Ur Leukocyte Esterase (NEGATIVE) Urine RBC (0-5) /HPF Urine WBC (0-5) /HPF Ur Squamous Epith Cells (<= Few) Urine Bacteria (None Seen) /HPF Ur Microscopic Review Urine Culture Comments Nasal Adenovirus (PCR) NOT DETECTED Nasal B. parapertussis DNA (PCR) NOT DETECTED Nasal Coronavir 229E PCR NOT DETECTED Nasal Coronavir HKU1 PCR NOT DETECTED Nasal Coronavir NL63 PCR NOT DETECTED Nasal Coronavir OC43 PCR NOT DETECTED Nasal Enterovir/Rhinovir PCR NOT DETECTED Nasal Influenza B PCR NOT DETECTED Nasal Influenza A PCR NOT DETECTED Nasal Parainfluen 1 PCR NOT DETECTED Nasal Parainfluen 2 PCR NOT DETECTED Nasal Parainfluen 3 PCR NOT DETECTED Nasal Parainfluen 4 PCR NOT DETECTED Nasal RSV (PCR) NOT DETECTED Nasal B.pertussis DNA PCR NOT DETECTED Nasal C.pneumoniae (PCR) NOT DETECTED Jesse Human Metapneumo PCR NOT DETECTED Nasal M.pneumoniae (PCR) NOT DETECTED Nasal SARS-CoV-2 (PCR) NOT DETECTED Blood Type Blood Type Recheck O POSITIVE Antibody Screen Crossmatch IS Only 02/10/21 02/10/21 02/10/21 Range/Units 23:15 23:15 23:15 WBC 10.4 (4.8-10.8) x10^3/uL RBC 3.00 L (4.20-5.40) 10^6/uL Hgb 6.5 L* (12.0-16.0) g/dL Hct 22.6 L (37.0-47.0) % MCV 75.3 L (81.0-99.0) fL MCH 21.7 L (27.0-31.0) pg MCHC 28.8 L (32.0-36.0) g/dL RDW 17.4 H (12.0-15.0) % Plt Count 238 (130-450) 10^3/uL MPV 11.2 H (7.9-10.8) fL Neut # (Auto) 7.0 H (1.5-6.6) 10^3/uL Lymph # (Auto) 2.2 (1.5-3.5) 10^3/uL [place] # (Auto) 0.8 (0.0-1.0) 10^3/uL Eos # (Auto) 0.3 (0.0-0.7) 10^3/uL Baso # (Auto) 0.0 (0.0-0.1) 10^3/uL Absolute Nucleated RBC 0.00 x10^3/uL Nucleated RBC % 0.0 /100WBC Manual Slide Review Indicated WBC Morphology NORMAL APPEARANCE (NORMAL) Platelet Estimate NORMAL (130-450,000) (NORMAL) Platelet Morphology NORMAL APPEARANCE (NORMAL) RBC Morph Micro Appear 2+ HYPOCHROMASIA (NORMAL) Sodium 136 (135-145) mmol/L Potassium 3.9 (3.5-5.0) mmol/L Chloride 104 (101-111) mmol/L Carbon Dioxide 24 (21-32) mmol/L Anion Gap 8.0 (6-13) BUN 15 (6-20) mg/dL Creatinine 0.7 (0.4-1.0) mg/dL Estimated GFR (MDRD) 90 (>89) Glucose 121 H (70-100) mg/dL Calcium 8.9 (8.5-10.3) mg/dL Total Bilirubin 0.5 (0.2-1.0) mg/dL AST 13 (10-42) IU/L ALT 14 (10-60) IU/L Alkaline Phosphatase 65 (42-121) IU/L Total Protein 7.5 (6.7-8.2) g/dL Albumin 3.9 (3.2-5.5) g/dL Globulin 3.6 (2.1-4.2) g/dL Albumin/Globulin Ratio 1.1 (1.0-2.2) Lipase 32 (22-51) U/L Urine Color Urine Clarity (CLEAR) Urine pH (5.0-7.5) PH Ur Specific [place] (1.002-1.030) Urine Protein (NEGATIVE) mg/dL Urine Glucose (UA) (NEGATIVE) mg/dL Urine Ketones (NEGATIVE) mg/dL Urine Occult Blood (NEGATIVE) Urine Nitrite (NEGATIVE) Urine Bilirubin (NEGATIVE) Urine Urobilinogen (NORMAL) E.U./dL Ur Leukocyte Esterase (NEGATIVE) Urine RBC (0-5) /HPF Urine WBC (0-5) /HPF Ur Squamous Epith Cells (<= Few) Urine Bacteria (None Seen) /HPF Ur Microscopic Review Urine Culture Comments Nasal Adenovirus (PCR) Nasal B. parapertussis DNA (PCR) Nasal Coronavir 229E PCR Nasal Coronavir HKU1 PCR Nasal Coronavir NL63 PCR Nasal Coronavir OC43 PCR Nasal Enterovir/Rhinovir PCR Nasal Influenza B PCR Nasal Influenza A PCR Nasal Parainfluen 1 PCR Nasal Parainfluen 2 PCR Nasal Parainfluen 3 PCR Nasal Parainfluen 4 PCR Nasal RSV (PCR) Nasal B.pertussis DNA PCR Nasal C.pneumoniae (PCR) Jesse Human Metapneumo PCR Nasal M.pneumoniae (PCR) Nasal SARS-CoV-2 (PCR) Blood Type O POSITIVE Blood Type Recheck Antibody Screen NEGATIVE Crossmatch IS Only See Detail 02/10/21 Range/Units 22:57 WBC (4.8-10.8) x10^3/uL RBC (4.20-5.40) 10^6/uL Hgb (12.0-16.0) g/dL Hct (37.0-47.0) % MCV (81.0-99.0) fL MCH (27.0-31.0) pg MCHC (32.0-36.0) g/dL RDW (12.0-15.0) % Plt Count (130-450) 10^3/uL MPV (7.9-10.8) fL Neut # (Auto) (1.5-6.6) 10^3/uL Lymph # (Auto) (1.5-3.5) 10^3/uL [place] # (Auto) (0.0-1.0) 10^3/uL Eos # (Auto) (0.0-0.7) 10^3/uL Baso # (Auto) (0.0-0.1) 10^3/uL Absolute Nucleated RBC x10^3/uL Nucleated RBC % /100WBC Manual Slide Review WBC Morphology (NORMAL) Platelet Estimate (NORMAL) Platelet Morphology (NORMAL) RBC Morph Micro Appear (NORMAL) Sodium (135-145) mmol/L Potassium (3.5-5.0) mmol/L Chloride (101-111) mmol/L Carbon Dioxide (21-32) mmol/L Anion Gap (6-13) BUN (6-20) mg/dL Creatinine (0.4-1.0) mg/dL Estimated GFR (MDRD) (>89) Glucose (70-100) mg/dL Calcium (8.5-10.3) mg/dL Total Bilirubin (0.2-1.0) mg/dL AST (10-42) IU/L ALT (10-60) IU/L Alkaline Phosphatase (42-121) IU/L Total Protein (6.7-8.2) g/dL Albumin (3.2-5.5) g/dL Globulin (2.1-4.2) g/dL Albumin/Globulin Ratio (1.0-2.2) Lipase (22-51) U/L Urine Color YELLOW Urine Clarity CLEAR (CLEAR) Urine pH 6.0 (5.0-7.5) PH Ur Specific [place] 1.020 (1.002-1.030) Urine Protein NEGATIVE (NEGATIVE) mg/dL Urine Glucose (UA) NEGATIVE (NEGATIVE) mg/dL Urine Ketones NEGATIVE (NEGATIVE) mg/dL Urine Occult Blood LARGE H (NEGATIVE) Urine Nitrite NEGATIVE (NEGATIVE) Urine Bilirubin NEGATIVE (NEGATIVE) Urine Urobilinogen 0.2 (NORMAL) (NORMAL) E.U./dL Ur Leukocyte Esterase NEGATIVE (NEGATIVE) Urine RBC 11-25 H (0-5) /HPF Urine WBC 4-5 (0-5) /HPF Ur Squamous Epith Cells NONE SEEN (<= Few) Urine Bacteria Moderate H (None Seen) /HPF Ur Microscopic Review INDICATED Urine Culture Comments NOT INDICATED Nasal Adenovirus (PCR) Nasal B. parapertussis DNA (PCR) Nasal Coronavir 229E PCR Nasal Coronavir HKU1 PCR Nasal Coronavir NL63 PCR Nasal Coronavir OC43 PCR Nasal Enterovir/Rhinovir PCR Nasal Influenza B PCR Nasal Influenza A PCR Nasal Parainfluen 1 PCR Nasal Parainfluen 2 PCR Nasal Parainfluen 3 PCR Nasal Parainfluen 4 PCR Nasal RSV (PCR) Nasal B.pertussis DNA PCR Nasal C.pneumoniae (PCR) Jesse Human Metapneumo PCR Nasal M.pneumoniae (PCR) Nasal SARS-CoV-2 (PCR) Blood Type Blood Type Recheck Antibody Screen Crossmatch IS Only
--- NOTE | 2021-02-11 18:29 | PHARMACY PROGRESS NOTE ---
- Best Possible Medication History Admit Date and Time: 02/11/21 0446 Processed by: Nursing Medication History completed: Yes As the person ultimately responsible for medication therapy, providers are able to order a medication from an existing home medication list in [facility] via the "Reconcile Routine" prior to Confirmation of that medication by customer support engineer. Such practice is discouraged except when the physician, in their clinical judgment, deems that a medical need exists for a medication without regard to previous use.
[2021-02-11] MEDS ORDERED: LOSARTAN 50 MG TABLET PO SCH (21:00)
[2021-02-11] MEDS ORDERED: METOPROLOL SUCCINATE 50 MG TABLET PO SCH (21:00)
[2021-02-11] MEDS: IBUPROFEN 600 MG TABLET PO PRN (22:41)
[2021-02-12] MEDS: SODIUM CHLORIDE 0.9% 1,000 ML IV SCH ×2 (00:31→08:10)
[2021-02-12 06:15] LABS: BASOPHILS # (AUTO) 0.1 10^3/uL (0.0-0.1); BASOPHILS % (AUTO) 0.6 %; EOSINOPHILS # (AUTO) 0.3 10^3/uL (0.0-0.7); EOSINOPHILS % (AUTO) 3.6 %; HCT - HEMATOCRIT 28.6 % (37.0-47.0); HGB - HEMOGLOBIN 8.7 g/dL (12.0-16.0); LYMPHOCYTES # (AUTO) 2.1 10^3/uL (1.5-3.5); LYMPHOCYTES % (AUTO) 23.9 %; MEAN CORPUSCULAR HEMOGLOBIN 23.6 pg (27.0-31.0); MEAN CORPUSCULAR HGB CONC 30.4 g/dL (32.0-36.0); MEAN CORPUSCULAR VOLUME 77.5 fL (81.0-99.0); MEAN PLATELET VOLUME 11.4 fL (7.9-10.8); MONOCYTES # (AUTO) 0.7 10^3/uL (0.0-1.0); MONOCYTES % (AUTO) 7.9 %; NEUTROPHILS # (AUTO) 5.7 10^3/uL (1.5-6.6); NEUTROPHILS % (AUTO) 63.7 %; NRBC ABSOLUTE COUNT (AUTO) 0.02 x10^3/uL; NUCLEATED RED BLOOD CELLS AUTO 0.2 /100WBC; PLT - PLATELET COUNT 226 10^3/uL (130-450); RED BLOOD COUNT 3.69 10^6/uL (4.20-5.40); RED CELL DISTRIBUTION WIDTH 18.1 % (12.0-15.0)
[2021-02-12] MEDS: IBUPROFEN 600 MG TABLET PO PRN (08:20)
[2021-02-12] MEDS: buPROPion XL 150 MG TABLET PO SCH (08:20)
--- NOTE | 2021-02-12 08:27 | PROVIDER PROGRESS NOTE ---
Subjective - Prog Note Date Prog Note Date: 02/12/21 Prog Note Time: 08:23 - Subjective Pt reports feeling: Improved (Patient is doing well and is without complaints other than still having some intermittent right upper quadrant pain. Patient is tolerating regular diet. Patient denies Nausea or vomiting. Patient states she had some vaginal bleeding overnight that was more than spotting, but was not flowing.) Objective - Vital Signs/Intake & Output Reviewed Vital Signs: Yes Intake & Output: Intake & Output 02/09/21 02/10/21 02/11/21 02/12/21 23:59 23:59 23:59 23:59 Intake Total 10 3685.000 1000 Output Total 800 Balance 10 2885.000 1000 - Objective General Appearance: positive: No acute distress, Alert, Other (Patient was lying in bed asleep and appeared comfortable when entered room.) Eyes Bilateral: positive: Normal inspection Neck: positive: Nml inspection Respiratory: positive: Chest non-tender, No respiratory distress, Breath sounds nml Cardiovascular: positive: Regular rate & rhythm, No murmur, No gallop Abdomen: positive: Nml bowel sounds, Other (Patient states she has tenderness/pain when abdomen is palpated in right upper quadrant. No guarding or rebound noted.) Skin: positive: Color nml (Color appears less pale than yesterday.) Extremities: positive: Full ROM, No pedal edema Neurologic/Psychiatric: positive: Oriented x3, Mood/affect nml - Lab Results Fish Bones: 02/12/21 06:04 02/10/21 23:15 Other Labs: Lab Results x24hrs 02/12/21 02/11/21 02/10/21 Range/Units 06:04 11:31 23:15 WBC 9.0 8.7 (4.8-10.8) x10^3/uL RBC 3.69 L 3.40 L (4.20-5.40) 10^6/uL Hgb 8.7 L 7.6 L (12.0-16.0) g/dL Hct 28.6 L 26.5 L (37.0-47.0) % MCV 77.5 L 77.9 L (81.0-99.0) fL MCH 23.6 L 22.4 L (27.0-31.0) pg MCHC 30.4 L 28.7 L (32.0-36.0) g/dL RDW 18.1 H 18.5 H (12.0-15.0) % Plt Count 226 212 (130-450) 10^3/uL MPV 11.4 H 11.6 H (7.9-10.8) fL Neut # (Auto) 5.7 5.7 (1.5-6.6) 10^3/uL Lymph # (Auto) 2.1 2.0 (1.5-3.5) 10^3/uL [place] # (Auto) 0.7 0.6 (0.0-1.0) 10^3/uL Eos # (Auto) 0.3 0.2 (0.0-0.7) 10^3/uL Baso # (Auto) 0.1 0.0 (0.0-0.1) 10^3/uL Absolute Nucleated RBC 0.02 0.00 x10^3/uL Nucleated RBC % 0.2 0.0 /100WBC Manual Slide Review Indicated WBC Morphology NORMAL APPEARANCE (NORMAL) Platelet Estimate NORMAL (130-450,000) (NORMAL) Platelet Morphology NORMAL APPEARANCE (NORMAL) RBC Morph Micro Appear 1+ POLYCHROMASIA (NORMAL) Blood Type O POSITIVE Antibody Screen NEGATIVE Crossmatch IS Only See Detail Assessment/Plan - Problem List (1) Abdominal pain Impression: Patient has persistent RUQ pain with palpation. Discussed she will follow-up with Dr. Chaves for consideration for Cholecystectomy in the future. Discussed a low-fat, bland diet with help with not exacerbating her gallbladder. Qualifiers: Abdominal location: right upper quadrant Qualified Code(s): R10.11 - Right upper quadrant pain (2) Abnormal uterine bleeding Impression: Polyp noted on Ultrasound with thickened Endometrium. Patient is consented for Hysteroscopy and D and C and possible polypectomy. Patient understood procedure and did not have any questions. Patient understands the plan is to send her home after she recovers from the procedure/anesthesia. (3) Anemia Qualifiers: Anemia type: iron deficiency Iron deficiency anemia type: unspecified iron deficiency Qualified Code(s): D50.9 - Iron deficiency anemia, unspecified
--- NOTE | 2021-02-12 09:35 | ANESTHESIA ---
Pre-Anesthesia VS, & Labs - Diagnosis anemia, DUB - Procedure hysterscopy, D&C Vital Signs: Temp Pulse Resp BP Pulse Ox 37.1 C 79 16 115/66 97 02/11/21 19:55 02/11/21 19:55 02/11/21 19:55 02/11/21 19:55 02/11/21 19:55 Height: 4 ft 11 in Weight (kg): 75 kg Body Mass Index: 33.3 BMI Classification: Obese - NPO >8 hours - Is Patient ?: No - Lab Results Current Lab Results: Laboratory Tests 02/12/21 06:04: WBC 9.0, RBC 3.69 L, Hgb 8.7 L, Hct 28.6 L, MCV 77.5 L, MCH 23.6 L, MCHC 30.4 L, RDW 18.1 H, Plt Count 226, MPV 11.4 H, Neut # (Auto) 5.7, Lymph # (Auto) 2.1, [place] # (Auto) 0.7, Eos # (Auto) 0.3, Baso # (Auto) 0.1, Absolute Nucleated RBC 0.02, Nucleated RBC % 0.2 02/11/21 11:31: WBC 8.7, RBC 3.40 L, Hgb 7.6 L, Hct 26.5 L, MCV 77.9 L, MCH 22.4 L, MCHC 28.7 L, RDW 18.5 H, Plt Count 212, MPV 11.6 H, Neut # (Auto) 5.7, Lymph # (Auto) 2.0, [place] # (Auto) 0.6, Eos # (Auto) 0.2, Baso # (Auto) 0.0, Absolute Nucleated RBC 0.00, Nucleated RBC % 0.0, Manual Slide Review Indicated, WBC Morphology NORMAL APPEARANCE, Platelet Estimate NORMAL (130-450,000), Platelet Morphology NORMAL APPEARANCE, RBC Morph Micro Appear 1+ POLYCHROMASIA 02/11/21 00:15: Blood Type Recheck O POSITIVE 02/10/21 23:15: Blood Type O POSITIVE, Antibody Screen NEGATIVE, Crossmatch IS Only See Detail 02/10/21 23:15: Sodium 136, Potassium 3.9, Chloride 104, Carbon Dioxide 24, Anion Gap 8.0, BUN 15, Creatinine 0.7, Estimated GFR (MDRD) 90, Glucose 121 H, Calcium 8.9, Total Bilirubin 0.5, AST 13, ALT 14, Alkaline Phosphatase 65, Total Protein 7.5, Albumin 3.9, Globulin 3.6, Albumin/Globulin Ratio 1.1, Lipase 32 02/10/21 23:15: WBC 10.4, RBC 3.00 L, Hgb 6.5 L*, Hct 22.6 L, MCV 75.3 L, MCH 21.7 L, MCHC 28.8 L, RDW 17.4 H, Plt Count 238, MPV 11.2 H, Neut # (Auto) 7.0 H, Lymph # (Auto) 2.2, [place] # (Auto) 0.8, Eos # (Auto) 0.3, Baso # (Auto) 0.0, Absolute Nucleated RBC 0.00, Nucleated RBC % 0.0, Manual Slide Review Indicated, WBC Morphology NORMAL APPEARANCE, Platelet Estimate NORMAL (130-450,000), Platelet Morphology NORMAL APPEARANCE, RBC Morph Micro Appear 2+ HYPOCHROMASIA Fish Bones: 02/12/21 06:04 02/10/21 23:15 Home Medications and Allergies Active Medications Bupropion HCl (Bupropion Xl 150 Mg Tablet) 300 mg PO DAILY [facility] Last Admin: 02/12/21 08:20 Dose: 300 mg Documented by: Sodium Chloride (Normal Saline 0.9%) 1,000 mls @ 100 mls/hr IV .Q10H MICHELLE Last Admin: 02/12/21 08:10 Dose: 100 mls/hr Documented by: Ibuprofen (Ibuprofen 600 Mg Tablet) 600 mg PO Q6HR PRN PRN Reason: PAIN Last Admin: 02/12/21 08:20 Dose: 600 mg Documented by: Losartan Potassium (Losartan 50 Mg Tablet) 50 mg PO QPM MICHELLE Last Admin: 02/11/21 20:58 Dose: 50 mg Documented by: Metoprolol Succinate (Metoprolol Succinate 50 Mg Tablet) 50 mg PO QPM [facility] Last Admin: 02/11/21 20:58 Dose: 50 mg Documented by: Ondansetron HCl (Ondansetron 4 Mg/2 Ml Vial) 4 mg IVP Q6HR PRN PRN Reason: Nausea / Vomiting Bupropion HCl [Bupropion Xl] 300 mg ORAL DAILY 03/21/15 Ascorbic Acid 500 mg PO DAILY 06/13/20 Losartan [Cozaar] 50 mg PO QPM 06/13/20 Metoprolol Succinate [Toprol Xl] 50 mg PO QPM 06/13/20 Allergies/Adverse Reactions: Allergies Allergy/AdvReac Type Severity Reaction Status Date / Time No Known Drug Allergies Allergy Verified 02/10/21 23:01 Anes History & Medical History - Anesthetic History Anesthesia Complications: reports: No previous complications - Medical History Cardiovascular: reports: Hypertension Pulmonary: reports: None Gastrointestinal: reports: None Urinary: reports: None Neuro: reports: None Musculoskeletal: reports: None Endocrine/Autoimmune: reports: None Blood Disorders: reports: Anemia Skin: reports: None Smoking Status: Never smoker Psychosocial: reports: Depression History of Cancer?: No Other Past Medical History: Abnormal Ekg: October 2003 (Told she had a minor heart attack) - Surgical History General: reports: Other (Hysteroscopy and biopsy of uterus reveal endometriosis and proliferative endometrium in 05/2020. Hernia repair) Gynecologic: reports: Other (Patient had Menarche at 14, Normally had one menses a month. Patient has no history of STD's. 5 , all infants weighed 8 pounds and a few ounces. No history of Pre-Eclampsia, Gestational Diabetes or Hemorrhage. No history of retained placenta. Last child born in 2004.) Exam General: Alert, Oriented x3, Cooperative, No acute distress Dental: WNL Mouth Openin Fingerbreadth Neck Mobility: Normal Mallampati classification: II Thyromental Distance: 4-6 cm Respiratory: Lungs clear, Normal breath sounds, No respiratory distress, No accessory muscle use Cardiovascular: Regular rate, Normal S1, Normal S2, No murmurs Mental/Cognitive Status: Alert/Oriented X3, Normal for patient Plan Anesthesia Type: General Consent for Procedure(s) Verified and Reviewed: Yes Code Status: Attempt Resuscitation ASA classification: 2-Mild systemic disease Is this case an emergency?: No
[2021-02-12] MEDS ORDERED: MORPHINE 2 MG/ML CARPUJECT IVP PRN (10:33)
[2021-02-12] MEDS ORDERED: NALOXONE 0.4 MG/ML VIAL IVP PRN (10:33)
[2021-02-12] MEDS ORDERED: ONDANSETRON 4 MG/2 ML VIAL IVP PRN (10:33)
[2021-02-12] MEDS ORDERED: HYDROmorphone 0.5 MG/0.5 ML SYRINGE IVP PRN (10:33)
[2021-02-12] MEDS ORDERED: ATROPINE ABBOJECT 1 MG/10 ML SYRINGE IVP PRN (10:33)
[2021-02-12] MEDS ORDERED: fentaNYL 100 MCG/2 ML VIAL IVP PRN (10:33)
[2021-02-12] MEDS ORDERED: LACTATED RINGERS 1,000 ML IV SCH (11:00)
[2021-02-12] MEDS ORDERED: PROPOFOL 200 MG/20 ML VIAL IVP ONE (14:05)
[2021-02-12] MEDS ORDERED: LIDOCAINE-MPF 2% 5 ML VIAL ONE (14:05)
[2021-02-12] MEDS ORDERED: BUPIVACAINE 0.5% PF 30 ML VIAL ONE (15:06)
[2021-02-12] MEDS ORDERED: LIDOCAINE 2%-EPI 1:100000 20 ML MDV ONE (15:06)
[2021-02-12] MEDS ORDERED: fentaNYL 100 MCG/2 ML VIAL ONE (15:22)
[2021-02-12] MEDS ORDERED: MIDAZOLAM 2 MG/2 ML VIAL ONE (15:22)
[2021-02-12] MEDS ORDERED: ONDANSETRON 4 MG/2 ML VIAL ONE (15:53)
[2021-02-12] MEDS ORDERED: DEXAMETHASONE 4 MG/ML VIAL ONE (15:53)
[2021-02-12] MEDS ORDERED: ePHEDrine 50 MG/ML VIAL IVP ONE (15:58)
[2021-02-12] MEDS ORDERED: TRANEXAMIC ACID 1,000 MG/10 ML VIAL ONE (16:04)
[2021-02-12] MEDS ORDERED: BUPIVACAINE 0.25% PF 30 ML VIAL SUBQ ONE (16:20)
[2021-02-12] MEDS ORDERED: LIDOCAINE MPF 1%-EPI 1:200000 30 ML VIAL SUBQ ONE (16:20)
[2021-02-12] MEDS ORDERED: LACTATED RINGERS 1,000 ML IV ONE (16:30)
[2021-02-12] MEDS ORDERED: oxyCODONE 5 MG TABLET PO PRN (16:36)
--- NOTE | 2021-02-12 16:40 | OPERATIVE REPORT ---
Operative Report - General Admit Date: 02/11/21 Planned Procedure: Hysteroscopy D&C with possible polypectomy Pre-Op Diagnosis: Dysfunctional uterine bleeding, thickened EMS, severe anemia Procedure Performed: Hysteroscopy D&C with polypectomy Post Op Diagnosis: Same - Procedure Note Primary Surgeon: Lesly Carpio MD Anesthesia Provider: Terri Almeida CRNA Anesthesia Technique: General ET tube Pathology: uterine contents IV Fluids (mL): 1,400 Estimated Blood Loss (mL): 5 Urine Output (mL): 100 Indications: Patient is a 45 yo admitted with severe DUB and acute blood loss anemia with thickened endometrium Patient was seen in ED for RUQ pain and was found to have cholelithiasis and thickened of the gallbladder wall. She was not deemed to meet surgical criteria. She also reported 3 days of heavy vaginal bleeding, changing a pad an hour since Thursday. Patient states she has had menses that last 3 weeks a month and only stops bleeding for a week a month and this has been going on for past 2 years. Patient is seen [facility] and had IUD removed in 06/2020 because bleeding persisted. Patient took a week of Provera in December, she believes middle of the month and states it did not stop bleeding. Patient states she started spotting a week ago, then the last three days has had the heavy bleeding. Ultrasound in December 2020 displayed a thickened endometrium, reported to be 3.7 cm in thickness. She was found to have a HCT of 22.6. This is a decrease from when she was seen in October for DUB and had a HCT of 27.9. She has received 2 units of PRBC overnight. Pelvic us this am showed an EMS of 2.1 cm. Patient has had multiple presentations for DUB. Wants to proceed to OR for surgical management with hysteroscopy D&C Findings: One large polyp in mid cavity and smaller polyp closer to the left tubal ostia. Bilateral tubal ostia noted. Uterine cavity without structural abnormalities post procedure. Complications: None - Other Other Information/Narrative: Risks benefits and alternatives to the procedure were reviewed. Consent was again confirmed. Patient was taken to the operating room where she underwent general anesthesia. She was positioned in dorsolithotomy position with legs resting in yellowfin stirrups. She was prepped and draped in the usual sterile fashion. Preoperative antibiotics were not indicated. Preoperative checklist was performed. Exam under anesthesia was performed. Speculum was placed in the vagina and the cervix was visualized. Single-tooth tenaculum was placed at the anterior cervical lip. Paracervical block was administered using a total of 20 cc of 0.25% bupivicaine with epinephrine was injected at the 4:00 and 8:00 positions lateral to the portio of the cervix. The cervical os was serially dilated with Hegar dilators to accommodate the caliber of the diagnostic hysteroscope. Uterus sounded to 9.5 cm. The hysteroscope was inserted and findings were noted as above. The hysteroscopic morcellator was inserted through the operative port. The intrauterine polyps were morcellated under direct visualization. Uterine cavity was smooth at close of the procedure. Hysteroscope was removed. Sharp curettage D&C was performed with sharp curettage. All instruments were removed from the uterus. Tenaculum was removed. Tenaculum sites were noted to be hemostatic. All instruments were removed from the vagina. Procedure was well-tolerated without complication. Fluid deficit: 650 cc NS
--- NOTE | 2021-02-12 16:56 | ANESTHESIA POST OP EVALUATION ---
Anesthesia Post Eval - Post Anesthesia Eval Vitals: Last Vital Signs Temp 36.6 C 02/12/21 16:45 Pulse 90 02/12/21 16:45 Resp 19 02/12/21 16:45 BP 120/76 02/12/21 16:45 Pulse Ox 100 02/12/21 16:45 CV Function Including HR & BP: Stable Pain Control: Satisfactory Nausea & Vomiting: Negative Mental Status: Baseline Respiratory Status: Airway Patent Hydration Status: Satisfactory Anesthesia Complications: None
--- NOTE | 2021-02-12 17:10 | PROVIDER PROGRESS NOTE ---
Subjective - Subjective Pt reports feeling: Improved (she has mild right upper abdominal pain. she is doing well after nerve specialist procedure for uterine bleeding) Objective - Vital Signs/Intake & Output Reviewed Vital Signs: Yes Vital Signs: Vital Signs x48h Temp Pulse Pulse Resp BP BP Pulse Ox 02/12/21 16:45 36.6 C 90 19 120/76 100 02/12/21 16:40 36.7 C 87 19 120/80 98 02/12/21 16:35 36.7 C 83 15 117/79 97 02/12/21 16:30 36.7 C 84 14 131/79 H 100 02/12/21 13:23 37.2 C 61 20 134/79 H 99 02/12/21 10:40 37 C 77 20 113/75 99 Intake & Output: Intake & Output 02/09/21 02/10/21 02/11/21 02/12/21 23:59 23:59 23:59 23:59 Intake Total 10 3685.000 1000 Output Total 800 Balance 10 2885.000 1000 - Objective General Appearance: positive: No acute distress, Alert ENT: positive: No signs of dehydration Neck: positive: No JVD Respiratory: positive: No respiratory distress Abdomen: positive: Non-tender, No distention Neurologic/Psychiatric: positive: Oriented x3 - Lab Results Fish Bones: 02/12/21 06:04 02/10/21 23:15 Other Labs: Lab Results x24hrs 02/12/21 02/10/21 Range/Units 06:04 23:15 WBC 9.0 (4.8-10.8) x10^3/uL RBC 3.69 L (4.20-5.40) 10^6/uL Hgb 8.7 L (12.0-16.0) g/dL Hct 28.6 L (37.0-47.0) % MCV 77.5 L (81.0-99.0) fL MCH 23.6 L (27.0-31.0) pg MCHC 30.4 L (32.0-36.0) g/dL RDW 18.1 H (12.0-15.0) % Plt Count 226 (130-450) 10^3/uL MPV 11.4 H (7.9-10.8) fL Neut # (Auto) 5.7 (1.5-6.6) 10^3/uL Lymph # (Auto) 2.1 (1.5-3.5) 10^3/uL Orange # (Auto) 0.7 (0.0-1.0) 10^3/uL Eos # (Auto) 0.3 (0.0-0.7) 10^3/uL Baso # (Auto) 0.1 (0.0-0.1) 10^3/uL Absolute Nucleated RBC 0.02 x10^3/uL Nucleated RBC % 0.2 /100WBC Blood Type O POSITIVE Antibody Screen NEGATIVE Crossmatch IS Only See Detail Assessment/Plan - Problem List (1) Abdominal pain Impression: mild symptomatic chronic cholecystitis Plan surgery next week she is given the office number to call for follow up as needed Qualifiers: Abdominal location: right upper quadrant Qualified Code(s): R10.11 - Right upper quadrant pain
[2021-02-12 19:13] VITALS: BP 117/69
== END 2021-02-12 19:45 | disposition home or self-care (01) | DRG 742 ==
LOC: ED 22:42 → ICU 02-11 04:46
PROVIDERS: ADMIT Obstetrics & Gynecology; ATTEND Obstetrics & Gynecology
PROC: 0UDB8ZZ Extraction of Endometrium, Via Natural or Artificial Opening Endoscopic (ICD-10-PCS; 2021-02-12)
PROC: 0UB98ZZ Excision of Uterus, Via Natural or Artificial Opening Endoscopic (ICD-10-PCS; principal; 2021-02-12 13:30)
DX: N93.8 Other specified abnormal uterine and vaginal bleeding (principal); K80.10 Calculus of gallbladder with chronic cholecystitis without obstruction; D62 Acute posthemorrhagic anemia; R93.89 Abnormal findings on diagnostic imaging of other specified body structures; N84.0 Polyp of corpus uteri; I10 Essential (primary) hypertension; N92.1 Excessive and frequent menstruation with irregular cycle; E66.9 Obesity, unspecified; Z68.33 Body mass index [BMI] 33.0-33.9, adult; Z20.822 Contact with and (suspected) exposure to COVID-19
CPT/HCPCS: 0202U; 36415; 36430; 76705; 76830; 76856; 80053; 81001; 83690; 85025; 86850; 86900; 86901; 86920; 96374; 96375; 99283; 99285; A9270; J7120; P9016; 81003; 87086

== ENCOUNTER 2021-02-20 12:30 | Day surgery (SDC) | payer OTHER ==
[2021-02-20] MEDS ORDERED: ceFAZolin 2 GM/50 ML 2 GM/50 ML BAG IV ONE (12:34)
[2021-02-20] MEDS ORDERED: LACTATED RINGERS 1,000 ML IV ONE ×2 (12:38→16:29)
[2021-02-20 12:51] LABS: HCG UR QUAL NEGATIVE
[2021-02-20] MEDS ORDERED: BUPIVACAINE 0.25% PF 30 ML VIAL ONE (13:30)
[2021-02-20] MEDS ORDERED: MORPHINE 2 MG/ML CARPUJECT IVP PRN (13:48)
[2021-02-20] MEDS ORDERED: ONDANSETRON 4 MG/2 ML VIAL IVP PRN ×2 (13:48→16:33)
[2021-02-20] MEDS ORDERED: ATROPINE ABBOJECT 1 MG/10 ML SYRINGE IVP PRN (13:48)
[2021-02-20] MEDS ORDERED: ePHEDrine 50 MG/ML VIAL IVP PRN (13:48)
[2021-02-20] MEDS ORDERED: fentaNYL 100 MCG/2 ML VIAL IVP PRN (13:48)
[2021-02-20] MEDS ORDERED: HYDROmorphone 0.5 MG/0.5 ML SYRINGE IVP PRN ×2 (13:48→16:33)
[2021-02-20] MEDS ORDERED: METOCLOPRAMIDE 10 MG/2 ML VIAL IVP PRN (13:48)
[2021-02-20] MEDS ORDERED: NALOXONE 0.4 MG/ML VIAL IVP PRN (13:48)
--- NOTE | 2021-02-20 13:48 | ANESTHESIA ---
Pre-Anesthesia VS, & Labs - Diagnosis biliary colic - Procedure laparoscopic cholecystectomy Vital Signs: Temp Pulse Resp BP Pulse Ox 36.4 C L 78 16 140/81 H 100 02/20/21 12:45 02/20/21 12:45 02/20/21 12:45 02/20/21 12:45 02/20/21 12:45 Height: 4 ft 11 in Weight (kg): 73.8 kg Body Mass Index: 32.8 BMI Classification: Obese - NPO >8 hours - Is Patient ?: No Home Medications and Allergies Bupropion HCl [Bupropion Xl] 300 mg ORAL DAILY 03/21/15 Ascorbic Acid 500 mg PO DAILY 06/13/20 Losartan [Cozaar] 50 mg PO QPM 06/13/20 Metoprolol Succinate [Toprol Xl] 50 mg PO QPM 06/13/20 Allergies/Adverse Reactions: Allergies Allergy/AdvReac Type Severity Reaction Status Date / Time No Known Drug Allergies Allergy Verified 02/10/21 23:01 Anes History & Medical History - Anesthetic History Anesthesia Complications: reports: No previous complications - Medical History Cardiovascular: reports: Hypertension Pulmonary: reports: None Gastrointestinal: reports: None, Cholelithiasis Urinary: reports: None Neuro: reports: None Musculoskeletal: reports: None Endocrine/Autoimmune: reports: None Blood Disorders: reports: Anemia Skin: reports: None Smoking Status: Never smoker - Surgical History General: reports: Other Gynecologic: reports: Other Exam General: Alert, Oriented x3 Dental: WNL Mouth Opening: Greater than 4 Fingerbreadths Mallampati classification: II Thyromental Distance: greater than 6 cm Respiratory: Lungs clear Cardiovascular: Regular rate Plan Anesthesia Type: General Consent for Procedure(s) Verified and Reviewed: Yes Code Status: Attempt Resuscitation ASA classification: 2-Mild systemic disease Is this case an emergency?: No
[2021-02-20] MEDS ORDERED: MIDAZOLAM 2 MG/2 ML VIAL ONE (13:58)
[2021-02-20] MEDS ORDERED: LIDOCAINE-MPF 2% 5 ML VIAL ONE (13:58)
[2021-02-20] MEDS ORDERED: fentaNYL 100 MCG/2 ML VIAL ONE ×2 (13:58→16:07)
[2021-02-20] MEDS ORDERED: PROPOFOL 200 MG/20 ML VIAL IVP ONE (13:58)
[2021-02-20] MEDS ORDERED: LACTATED RINGERS 1,000 ML IV SCH (14:00)
[2021-02-20] MEDS ORDERED: ROCURONIUM 50 MG/5 ML VIAL ONE (14:02)
[2021-02-20] MEDS ORDERED: KETOROLAC 30 MG/ML VIAL ONE (14:48)
[2021-02-20] MEDS ORDERED: DEXAMETHASONE 4 MG/ML VIAL ONE (14:48)
[2021-02-20] MEDS ORDERED: ACETAMINOPHEN 1,000 MG/100 ML 100 ML IV ONE (14:48)
[2021-02-20] MEDS ORDERED: ONDANSETRON 4 MG/2 ML VIAL ONE ×2 (14:48→17:39)
[2021-02-20] MEDS ORDERED: BUPIVACAINE 0.25% PF 30 ML VIAL SUBQ ONE (14:49)
[2021-02-20] MEDS ORDERED: SUGAMMADEX 200 MG/2 ML VIAL IVP ONE (15:43)
[2021-02-20] MEDS ORDERED: LACTATED RINGERS 100 ML IV ONE (16:09)
[2021-02-20] MEDS: HYDROmorphone 1 MG/ML CARPUJECT ONE ×2 (16:25→16:30)
--- NOTE | 2021-02-20 16:26 | OPERATIVE REPORT ---
Operative Report - General Procedure Date: 02/20/21 Planned Procedure: laparoscopic cholecystectomy Pre-Op Diagnosis: chronic cholecystitis Procedure Performed: laparoscopic cholecystectomy Post Op Diagnosis: chronic cholecystitis - Procedure Note Primary Surgeon: jody meraz md Anesthesia Technique: General ET tube, Local Pathology: gallbladder Estimated Blood Loss (mL): 15 Drain/Tube Type: Other (none) Indications: chronic cholecystitis Findings: soft fatty liver. surgicell placed Complications: none - Other Other Information/Narrative: The patient was properly identified, brought to the operating room and placed in supine position. Sequential compression devices were placed. General endotracheal anesthesia was induced. The patient was prepped and draped in a sterile fashion and given preoperative antibiotics. Local anesthetic was given to incision areas. An incision was made in the periumbilical area. Dissection proceeded down to fascia. The fascia was incised lifted upwards and abdomen entered with a Veress needle. CO2 was insufflated to a pressure of 15. An 11 mm trocar followed by a 30 degree scope was placed. There was no evidence of injury from Veress needle or trocar placement. Under direct vision 2 5 mm trochars were placed in the right upper quadrant and an 11 mm trocar was placed in the epigastrium. Body of the gallbladder was retracted anterior. Lateral attachments were partially taken down further mobilizing the gallbladder more anterior and away from the duodenum. The infundibulum of the gallbladder was then retracted right lateral and caudad. With minimal use of cautery a large bare cystic plate area or window was carefully created. The cystic duct was inspected from right lateral and left lateral positions. [] The cystic duct was then clipped at the gallbladder and 3 times slightly proximal and sharply divided. The cystic artery was clipped at the gallbladder and then 2 times slightly proximal and sharply divided. The gallbladder was mobilized off from the bed of the liver with hook cautery. The gallbladder was placed in Endo Catch bag and brought out through the epigastric trocar site. Hemostasis was assured. Trochars were removed under direct vision. Fascia at the larger trocar sites was closed with [id number] are running 0 Vicryl suture. Subcutaneous tissue was irrigated and skin closed with interrupted 4-0 Monocryl. Dressings were applied. Patient tolerated the procedure well was awakened and brought to recovery in good condition.
[2021-02-20] MEDS ORDERED: HYDROcod/ACETAM 5/325 MG TABLET PO PRN (16:33)
[2021-02-20] MEDS ORDERED: HYDROcod/ACETAM 5/325 MG TABLET ONE (17:15)
--- NOTE | 2021-02-20 17:34 | ANESTHESIA POST OP EVALUATION ---
Anesthesia Post Eval - Post Anesthesia Eval Vitals: Last Vital Signs Temp 36 C L 02/20/21 17:30 Pulse 70 02/20/21 17:30 Resp 17 02/20/21 17:30 BP 129/81 H 02/20/21 17:30 Pulse Ox 94 02/20/21 17:30 CV Function Including HR & BP: Stable Pain Control: Satisfactory Nausea & Vomiting: Negative Mental Status: Baseline Respiratory Status: Airway Patent Hydration Status: Satisfactory Anesthesia Complications: None
[2021-02-20 18:09] VITALS: BP 132/84
== END 2021-02-20 12:31 | disposition home or self-care (01) ==
LOC: SDS 12:30
PROVIDERS: ATTEND Surgery
PROC: 0FT44ZZ Resection of Gallbladder, Percutaneous Endoscopic Approach (ICD-10-PCS; principal; 2021-02-20 13:30)
DX: K80.10 Calculus of gallbladder with chronic cholecystitis without obstruction (principal); K76.0 Fatty (change of) liver, not elsewhere classified; D50.9 Iron deficiency anemia, unspecified; I10 Essential (primary) hypertension; R73.09 Other abnormal glucose; F32.9 Major depressive disorder, single episode, unspecified; E66.9 Obesity, unspecified; Z68.32 Body mass index [BMI] 32.0-32.9, adult; Z79.899 Other long term (current) drug therapy
CPT/HCPCS: 47562; 81025; A9270; J0131; J0690; J1170; J7120

== ENCOUNTER 2021-06-09 03:46 | Emergency (ER) | payer OTHER ==
[2021-06-09 04:05] VITALS: BP 147/72
--- NOTE | 2021-06-09 06:33 | ED Physician Documentation ---
History of Present Illness - Stated complaint Stated Complaint: SOA, COUGH - Chief complaint Chief Complaint: Resp - History obtained from History obtained from: Patient - Additonal information Additional information: 46-year-old woman with past medical history of high blood pressure and high cholesterol, recent diagnosis of Covid 3 weeks ago by home Covid test, presents with cough productive of clear sputum, chest tightness, and difficulty sleeping due to cough over the past couple weeks. Patient is also having some subjective shortness of breath and chills but no objective fever at home. She has been quarantining at home and has not seen a doctor. 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 : None HEENT: None Psych: Depression Musculoskeletal: None Derm: None - Past Surgical History Past Surgical History: Yes General: Other /SUPERVISOR SHOP: Other - Present Medications Home Medications: Ambulatory Orders Medication Instructions Recorded Confirmed Bupropion HCl [Bupropion Xl] 300 mg ORAL DAILY 03/21/15 02/19/21 Ascorbic Acid 500 mg PO DAILY 06/13/20 02/19/21 Losartan [Cozaar] 50 mg PO QPM 06/13/20 02/19/21 Metoprolol Succinate [Toprol Xl] 50 mg PO QPM 06/13/20 02/19/21 Ferrous Sulfate 325 mg PO BIDWM #60 tab 11/07/20 02/19/21 Acetaminophen [Acetaminophen Extra 1,000 mg PO Q8H PRN #60 tablet 02/12/21 02/19/21 Strength] Docusate Sodium 100Mg Capsule 100 - 200 mg PO BID PRN #60 cap 02/12/21 02/19/21 [Colace 100Mg Capsule] Ibuprofen [Motrin] 600 mg PO Q6H PRN #60 tab 02/12/21 02/19/21 HYDROcod/ACETAM 5/325 [Aspen 5/325] 1 each PO Q6H PRN #30 tablet 02/20/21 Ondansetron Odt [Zofran Odt] 4 mg PO Q6H PRN #15 tablet 02/20/21 - Allergies Allergies/Adverse Reactions: Allergies Allergy/AdvReac Type Severity Reaction Status Date / Time No Known Drug Allergies Allergy Verified 06/09/21 04:05 - Social History Does the pt smoke?: No Smoking Status: Never smoker Does the pt drink ETOH?: Yes Does the pt have substance abuse?: No - Immunizations Immunizations are current?: Yes - POLST Patient has POLST: No POLST Status: Full Code PD ED PE NORMAL - Vitals Vital signs reviewed: Yes - General General: Alert and oriented X 3, No acute distress, Well developed/nourished - HEENT HEENT: Atraumatic, PERRL, EOMI, Moist mucous membranes, Pharynx benign - Neck Neck: Supple, no meningeal sign - Cardiac Cardiac: RRR - Respiratory Respiratory: No respiratory distress, Clear bilaterally, Other (Dry cough. No increased work of breathing.) - Abdomen Abdomen: Non tender, Non distended - Derm Derm: Normal color, Warm and dry - Extremities Extremities: No edema - Neuro Neuro: Alert and oriented X 3, No motor deficit, No sensory deficit - Psych Psych: Normal mood, Normal affect Results - Vitals Vitals: Vital Signs - 24 hr 06/09/21 04:01 Temperature 36.1 C L Heart Rate 84 Respiratory 18 Rate Blood Pressure 147/72 H O2 Saturation 98 Oxygen O2 Source Room air PD MEDICAL DECISION MAKING - ED course ED course: 46-year-old woman presents with symptoms of COVID-19. Her vital signs are normal With the exception of some mild hypertension and she is afebrile. Physical exam is unremarkable except for dry cough. Symptomatic care discussed. Return precautions given. Repeat Covid swab performed upon her request. Departure - Departure Disposition: Home, Self Care Clinical Impression: COVID-19 Condition: Good Instructions: COVID-19 [facility], COVID-19 [facility] Department Statement Comments: You were seen in the emergency department for evaluation of COVID-19. Your vital signs and physical exam were normal. You should continue to quarantine at home. You can ask your primary doctor via telehealth about Regeneron treatment, and IV monoclonal antibody treatment for COVID-19 that is sometimes offered in the emergency department here at [facility] during weekdays. You should call ahead of time to check if the pharmacy has Regeneron before coming to the emergency department. It is a 1 hour infusion followed by 1 hour observation. Return to the emergency department if you have any new or worsening symptoms or other concerns.
[2021-06-09 08:34] LABS: CORONAVIRUS 229E-RESP PCR NOT DETECTED; CORONAVIRUS HKU1-RESP PCR NOT DETECTED; CORONAVIRUS NL63-RESP PCR NOT DETECTED; CORONAVIRUS OC43-RESP PCR NOT DETECTED; HUMAN METAPNEUMOVIRUS NOT DETECTED; INFLUENZA A- RESP PCR PANEL NOT DETECTED; RHINOVIRUS/ENTEROVIRUS NOT DETECTED; SARS-CoV-2 -RESP PCR PANEL NOT DETECTED
[2021-06-09 08:35] LABS: B. PARAPERTUSSIS- RESP PCR PAN NOT DETECTED; B. PERTUSSIS- RESP PCR PANEL NOT DETECTED; C. PNEUMONIAE- RESP PCR PANEL NOT DETECTED; INFLUENZA B - RESP PCR PANEL NOT DETECTED; M. PNEUMONIAE- RESP PCR PANEL NOT DETECTED; PARAINFLUENZA VIRUS 1 NOT DETECTED; PARAINFLUENZA VIRUS 2 NOT DETECTED; PARAINFLUENZA VIRUS 3 NOT DETECTED; PARAINFLUENZA VIRUS 4 NOT DETECTED; RSV- RESP PCR PANEL DETECTED
== END 2021-06-09 06:49 | disposition home or self-care (01) ==
LOC: ED 03:46
DX: U07.1 COVID-19 (principal); R05.9 Cough, unspecified; I10 Essential (primary) hypertension; Z79.899 Other long term (current) drug therapy
CPT/HCPCS: 0202U; 99283

== ENCOUNTER 2021-12-17 15:41 | Emergency (ER) | payer OTHER ==
[2021-12-17 16:06] VITALS: BP 146/78
[2021-12-17] MEDS ORDERED: IBUPROFEN 600 MG TABLET PO STA (16:42)
--- NOTE | 2021-12-17 16:42 | ED Physician Documentation ---
PD HPI LOWER EXT INJURY - Stated complaint Stated Complaint: L ANKLE INJ - Chief complaint Chief Complaint: Trauma Ext - History obtained from History obtained from: Patient (46-year-old woman had a slip with ankle inversion at about 10 AM while shopping at the mall today. Has moderate left ankle pain. No other injuries. She is not able to walk or bear weight. 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 : None HEENT: None Psych: Depression Musculoskeletal: None Derm: None - Past Surgical History Past Surgical History: Yes General: Other /HAND LAUNDERER: Other - Present Medications Home Medications: Ambulatory Orders Medication Instructions Recorded Confirmed Bupropion HCl [Bupropion Xl] 300 mg ORAL DAILY 03/21/15 02/19/21 Ascorbic Acid 500 mg PO DAILY 06/13/20 02/19/21 Losartan [Cozaar] 50 mg PO QPM 06/13/20 02/19/21 Metoprolol Succinate [Toprol Xl] 50 mg PO QPM 06/13/20 02/19/21 Ferrous Sulfate 325 mg PO BIDWM #60 tab 11/07/20 02/19/21 Acetaminophen [Acetaminophen Extra 1,000 mg PO Q8H PRN #60 tablet 02/12/21 02/19/21 Strength] Docusate Sodium 100Mg Capsule 100 - 200 mg PO BID PRN #60 cap 02/12/21 02/19/21 [Colace 100Mg Capsule] Ibuprofen [Motrin] 600 mg PO Q6H PRN #60 tab 02/12/21 02/19/21 HYDROcod/ACETAM 5/325 [Russell 5/325] 1 each PO Q6H PRN #30 tablet 02/20/21 Ondansetron Odt [Zofran Odt] 4 mg PO Q6H PRN #15 tablet 02/20/21 - Allergies Allergies/Adverse Reactions: Allergies Allergy/AdvReac Type Severity Reaction Status Date / Time No Known Drug Allergies Allergy Verified 12/17/21 16:05 - Social History Does the pt smoke?: No Smoking Status: Never smoker Does the pt drink ETOH?: Yes Does the pt have substance abuse?: No - Immunizations Immunizations are current?: Yes - POLST Patient has POLST: No POLST Status: Full Code PD ED PE NORMAL - Vitals Vital signs reviewed: Yes - General General: Alert and oriented X 3, No acute distress - Extremities Extremities: Other (Tender and swollen over the lateral malleolus on the left without medial joint line tenderness. No proximal fibular or foot tenderness.) - Neuro Neuro: Alert and oriented X 3, Normal speech Results - Vitals Vitals: Vital Signs - 24 hr 12/17/21 16:02 Temperature 36.6 C Heart Rate 82 Respiratory 14 Rate Blood Pressure 146/78 H O2 Saturation 100 Oxygen O2 Source Room air - Rads (name of study) Three-view x-ray of the ankle is without fracture Radiology: EMP read contemporaneously Departure - Departure Disposition: 01 Home, Self Care Clinical Impression: Left ankle sprain Qualifiers: Encounter type: initial encounter Involved ligament of ankle: anterior talofibular ligament Qualified Code(s): S93.492A - Sprain of other ligament of left ankle, initial encounter Condition: Good Record reviewed to determine appropriate education?: Yes Instructions: ED Sprain Ankle W X Ray Comments: Ibuprofen as needed for pain. Ice and elevation. Return if worse. Follow-up with your doctor in a week if not better. Forms: Activity restrictions Discharge Date/Time: 12/17/21 17:27
--- NOTE | 2021-12-17 16:52 | XRAY Report ---
PROCEDURE: Ankle 3 View LT INDICATIONS: ankle inj TECHNIQUE: 3 views of the ankle were acquired. COMPARISON: None FINDINGS: Bones: No fractures or dislocations. Ankle mortise is normally aligned. No suspicious bony lesions . Soft tissues: No tibiotalar joint effusion. Achilles tendon appears normal. IMPRESSION: Left ankle without acute fracture or dislocation. If there is persistent clinical concern for a radiographically occult fracture, recommend immobilizat ion and repeat imaging in 10 to 14 days. Reviewed by: Kalen Collins MD on 12/17/2021 4:50 PM PDT Approved by: Kalen Collins MD on 12/17/2021 4:50 PM PDT Station ID: [id number]
== END 2021-12-17 17:27 | disposition home or self-care (01) ==
LOC: ED 15:41
DX: S93.492A Sprain of other ligament of left ankle, initial encounter (principal); X50.1XXA Overexertion from prolonged static or awkward postures, initial encounter; Y93.89 Activity, other specified
CPT/HCPCS: 73610; 99282; 99283; A9270

== ENCOUNTER 2022-05-02 08:22 | Day surgery (SDC) | payer OTHER ==
[2022-05-02 10:18] LABS: BASOPHILS # (AUTO) 0.1 10^3/uL (0.0-0.1); BASOPHILS % (AUTO) 0.4 %; EOSINOPHILS # (AUTO) 0.1 10^3/uL (0.0-0.7); EOSINOPHILS % (AUTO) 0.9 %; HCT - HEMATOCRIT 27.5 % (37.0-47.0); HGB - HEMOGLOBIN 7.3 g/dL (12.0-16.0); LYMPHOCYTES # (AUTO) 1.4 10^3/uL (1.5-3.5); LYMPHOCYTES % (AUTO) 9.4 %; MEAN CORPUSCULAR HEMOGLOBIN 17.5 pg (27.0-31.0); MEAN CORPUSCULAR HGB CONC 26.5 g/dL (32.0-36.0); MEAN CORPUSCULAR VOLUME 66.1 fL (81.0-99.0); MONOCYTES # (AUTO) 1.1 10^3/uL (0.0-1.0); MONOCYTES % (AUTO) 7.1 %; NEUTROPHILS # (AUTO) 12.3 10^3/uL (1.5-6.6); NEUTROPHILS % (AUTO) 81.8 %; NRBC ABSOLUTE COUNT (AUTO) 0.02 x10^3/uL; NUCLEATED RED BLOOD CELLS AUTO 0.1 /100WBC; PLT - PLATELET COUNT 212 10^3/uL (130-450); RED BLOOD COUNT 4.16 10^6/uL (4.20-5.40); RED CELL DISTRIBUTION WIDTH 20.3 % (12.0-15.0); WHITE BLOOD COUNT 15.1 x10^3/uL (4.8-10.8)
[2022-05-02 10:26] LABS: BILIRUBIN,TOTAL 0.7 mg/dL (0.2-1.0); CREATININE 0.6 mg/dL (0.4-1.0)
[2022-05-02 10:34] LABS: SLIDE REVIEW? Indicated
[2022-05-02 11:11] LABS: PLATELET ESTIMATE, MANUAL NORMAL (130-450,000) (NORMAL)
[2022-05-02 11:12] LABS: WBC MORPHOLOGY (MULTIPLE) NORMAL APPEARANCE (NORMAL)
[2022-05-02] MEDS ORDERED: KETOROLAC 15 MG/ML VIAL IVP STA (12:31)
--- NOTE | 2022-05-02 12:32 | ED Physician Documentation ---
PD HPI ABD PAIN - Stated complaint Stated Complaint: RT SIDE ABD/STOMACH PX - Chief complaint Chief Complaint: Abd Pain - History obtained from History obtained from: Patient - Additional information Additional information: 47-year-old woman with history of remote cholecystectomy and chronic anemia related to heavy menses presents with right lower quadrant pain radiating to the back starting in the middle of the night last night. Associated with resolved nausea. This is not something she is ever had before. She has no urinary complaints. No hematuria or foul-smelling urine's. She denies fevers. And ancillary complaints is 3 weeks of lateral right foot pain without recollected injury. Review of Systems Constitutional: denies: Fever, Chills Throat: reports: Reviewed and negative Cardiac: reports: Reviewed and negative Respiratory: reports: Reviewed and negative PD PAST MEDICAL HISTORY - Past Medical History Cardiovascular: Hypertension Respiratory: None Neuro: None Endocrine/Autoimmune: None GI: None, Cholelithiasis [employer] [facility]: Endometriosis : None HEENT: None Psych: Depression Musculoskeletal: None Derm: None - Past Surgical History Past Surgical History: Yes General: Other /[employer] [facility]: Other - Present Medications Home Medications: Ambulatory Orders Medication Instructions Recorded Confirmed Bupropion HCl [Bupropion Xl] 300 mg ORAL DAILY 03/21/15 02/19/21 Ascorbic Acid 500 mg PO DAILY 06/13/20 02/19/21 Losartan [Cozaar] 50 mg PO QPM 06/13/20 02/19/21 Metoprolol Succinate [Toprol Xl] 50 mg PO QPM 06/13/20 02/19/21 Ferrous Sulfate 325 mg PO BIDWM #60 tab 11/07/20 02/19/21 Acetaminophen [Acetaminophen Extra 1,000 mg PO Q8H PRN #60 tablet 02/12/21 02/19/21 Strength] Docusate Sodium 100Mg Capsule 100 - 200 mg PO BID PRN #60 cap 02/12/21 02/19/21 [Colace 100Mg Capsule] Ibuprofen [Motrin] 600 mg PO Q6H PRN #60 tab 02/12/21 02/19/21 HYDROcod/ACETAM 5/325 [[place] 5/325] 1 each PO Q6H PRN #30 tablet 02/20/21 Ondansetron Odt [Zofran Odt] 4 mg PO Q6H PRN #15 tablet 02/20/21 - Allergies Allergies/Adverse Reactions: Allergies Allergy/AdvReac Type Severity Reaction Status Date / Time No Known Drug Allergies Allergy Verified 05/02/22 08:36 - Social History Does the pt smoke?: No Smoking Status: Never smoker Does the pt drink ETOH?: Yes Does the pt have substance abuse?: No - Immunizations Immunizations are current?: Yes - POLST Patient has POLST: No POLST Status: Full Code PD ED PE NORMAL - Vitals Vital signs reviewed: Yes - General General: Alert and oriented X 3, No acute distress - Cardiac Cardiac: RRR, No murmur - Respiratory Respiratory: No respiratory distress, Clear bilaterally - Abdomen Abdomen: Other (Focally tender in the right lower quadrant without guarding or rebound. No flank tenderness.) - Back Back: No CVA TTP, No spinal TTP - Derm Derm: Normal color, Warm and dry - Extremities Extremities: Other (Mild tenderness of the proximal fifth metatarsal of the right foot without deformity, normal gait.) - Neuro Neuro: Alert and oriented X 3, Normal speech Results - Vitals Vitals: Vital Signs - 24 hr 05/02/22 05/02/22 08:34 13:09 Temperature 36.3 C L Heart Rate 95 83 Respiratory 16 14 Rate Blood Pressure 146/82 H 148/87 H O2 Saturation 100 99 Oxygen O2 Source Room air - Labs Labs: Laboratory Tests 05/02/22 05/02/22 05/02/22 10:10 10:10 12:20 WBC 15.1 H RBC 4.16 L Hgb 7.3 L Hct 27.5 L MCV 66.1 L MCH 17.5 L MCHC 26.5 L RDW 20.3 H Plt Count 212 Neut # (Auto) 12.3 H Lymph # (Auto) 1.4 L [place] # (Auto) 1.1 H Eos # (Auto) 0.1 Baso # (Auto) 0.1 Absolute Nucleated RBC 0.02 Nucleated RBC % 0.1 Manual Slide Review Indicated WBC Morphology NORMAL APPEARANCE Platelet Estimate NORMAL (130-450,000) Platelet Morphology 2+ LARGE PLATELETS Sodium 133 L Potassium 4.0 Chloride 101 Carbon Dioxide 24 Anion Gap 8.0 BUN 11 Creatinine 0.6 Estimated GFR (MDRD) 107 Glucose 123 H Calcium 9.0 Total Bilirubin 0.7 AST 18 ALT 18 Alkaline Phosphatase 76 Total Protein 8.0 Albumin 4.0 Globulin 4.0 Albumin/Globulin Ratio 1.0 Lipase 29 Urine Color Urine Clarity Urine pH Ur Specific [place] Urine Protein Urine Glucose (UA) Urine Ketones Urine Occult Blood Urine Nitrite Urine Bilirubin Urine Urobilinogen Ur Leukocyte Esterase Ur Microscopic Review Urine Culture Comments Urine HCG, Qual NEGATIVE 05/02/22 12:30 WBC RBC Hgb Hct MCV MCH MCHC RDW Plt Count Neut # (Auto) Lymph # (Auto) Rock # (Auto) Eos # (Auto) Baso # (Auto) Absolute Nucleated RBC Nucleated RBC % Manual Slide Review WBC Morphology Platelet Estimate Platelet Morphology Sodium Potassium Chloride Carbon Dioxide Anion Gap BUN Creatinine Estimated GFR (MDRD) Glucose Calcium Total Bilirubin AST ALT Alkaline Phosphatase Total Protein Albumin Globulin Albumin/Globulin Ratio Lipase Urine Color YELLOW Urine Clarity CLEAR Urine pH 6.5 Ur Specific [place] 1.015 Urine Protein NEGATIVE Urine Glucose (UA) NEGATIVE Urine Ketones NEGATIVE Urine Occult Blood TRACE-INTA Urine Nitrite NEGATIVE Urine Bilirubin NEGATIVE Urine Urobilinogen 0.2 (NORMAL) Ur Leukocyte Esterase NEGATIVE Ur Microscopic Review NOT INDICATED Urine Culture Comments NOT INDICATED Urine HCG, Qual - Rads (name of study) R foot XR Radiology: EMP read contemporaneously (NAD) CT A/P Radiology: EMP read contemporaneously (appy, also R ov cyst) PD MEDICAL DECISION MAKING - ED course ED course: 47-year-old woman with right foot sprain for 3 weeks, negative x-ray. Also right lower quadrant pain since last night with uncomplicated appendicitis on CT. Spoke with Dr. Chaves for consultation at 1350, he recommends Zosyn pending evaluation. Departure - Departure Disposition: ED Transfer to [facility] Clinical Impression: Appendicitis Qualifiers: Appendicitis type: acute appendicitis Acute appendicitis type: with localized peritonitis Appendicitis gangrene presence: without gangrene Appendicitis perforation presence: without perforation Appendicitis abscess presence: without abscess Qualified Code(s): K35.30 - Acute appendicitis with localized peritonitis, without perforation or gangrene Right foot sprain Qualifiers: Encounter type: initial encounter Qualified Code(s): S93.601A - Unspecified sprain of right foot, initial encounter Anemia Qualifiers: Anemia type: iron deficiency Iron deficiency anemia type: chronic blood loss Qualified Code(s): D50.0 - Iron deficiency anemia secondary to blood loss (chronic) Condition: Stable
[2022-05-02 12:43] LABS: BILIRUBIN,URINE NEGATIVE (NEGATIVE); GLUCOSE, URINE (UA) NEGATIVE (NEGATIVE); KETONES,URINE (UA) NEGATIVE (NEGATIVE); LEUKOCYTE ESTERASE, URINE NEGATIVE (NEGATIVE); NITRITE,URINE NEGATIVE (NEGATIVE); OCCULT BLOOD,URINE TRACE-INTA (NEGATIVE); PH,URINE 6.5 PH (5.0-7.5); PROTEIN,URINE NEGATIVE (NEGATIVE); UROBILINOGEN,URINE 0.2 (NORMAL) E.U./dL (NORMAL)
[2022-05-02] MEDS ORDERED: iohexoL-300 100 ML VIAL ONE (12:49)
[2022-05-02 12:52] LABS: CLARITY,URINE CLEAR (CLEAR)
--- NOTE | 2022-05-02 13:05 | XRAY Report ---
PROCEDURE: Foot 3 View RT INDICATIONS: foot pain TECHNIQUE: 3 views of the foot were acquired. COMPARISON: None. FINDINGS: Bones: No fractures or dislocations. No suspicious bony lesions. Soft tissues: No tibiotalar joint effusion. Achilles tendon appears normal. IMPRESSION: Source of reported foot pain is not seen. Reviewed by: Michael Villarreal MD on 05/02/2022 1:04 PM PDT Approved by: Michael Villarreal MD on 05/02/2022 1:04 PM PDT Station ID: [id number]
[2022-05-02 13:19] LABS: HCG UR QUAL NEGATIVE
--- NOTE | 2022-05-02 13:52 | CT Report ---
PROCEDURE: Abdomen/Pelvis W INDICATIONS: IV only, rlq pain CONTRAST: IV CONTRAST: Optiray 320 ml: 100 PO CONTRAST: *NO PO CONTRAST TECHNIQUE: After the administration of nonionic contrast, 5 mm thick sections acquired from the diaphragms to th e symphysis. 5 mm thick coronal and sagittal reformats were acquired. For radiation dose reduction, the following was used: automated exposure control, adjustment of mA and/or kV according to patient size. COMPARISON: None. FINDINGS: Image quality: Excellent. ABDOMEN: Lung bases: Lung bases are clear. Heart size is normal. Solid organs: Liver and spleen are normal in size and enhancement. Gallbladder has been previously resected Biliary system is non dilated. Pancreas enhances normally. No adrenal nodules. Kidneys d emonstrate normal size and enhancement, without hydronephrosis. Peritoneum and bowel: Bowel loops demonstrate normal wall thickness and caliber. No free fluid or a ir. Nodes and vessels: No retroperitoneal or mesenteric adenopathy by size criteria. Aorta and inferior vena cava are normal in size. Miscellaneous: No ventral hernias. PELVIS: Genitourinary: Bladder wall thickness is normal. Note is made of a dominant right ovarian cyst satinder uring 4.2 cm. Miscellaneous: No inguinal hernias or adenopathy. At the right lower quadrant there is evidence of acute appendicitis with the appendix mildly dilated in caliber and hyperemic along its margin. There also is adjacent periappendiceal edema but no abscess. Bones: No suspicious bony lesions. No vertebral body compression fractures. IMPRESSION: Acute appendicitis without evidence of appendiceal rupture or appendicolith. The emergen cy room physician was immediately called with these findings. Incidental note made of a dominant righ t ovarian cyst measuring up to 4.2 cm. Reviewed by: Michael Villarreal MD on 05/02/2022 1:50 PM PDT Approved by: Michael Villarreal MD on 05/02/2022 1:50 PM PDT Station ID: [id number]
[2022-05-02] MEDS ORDERED: PIPERACILLIN/TAZOBACTAM 3.375 GM in SODIUM CHLORIDE 0.9% MINIBAG 100 ML IV STA (13:54)
[2022-05-02] MEDS ORDERED: ePHEDrine 50 MG/ML VIAL IVP PRN (14:39)
[2022-05-02] MEDS ORDERED: HYDROmorphone 0.5 MG/0.5 ML SYRINGE IVP PRN ×2 (14:39→16:38)
[2022-05-02] MEDS ORDERED: ONDANSETRON 4 MG/2 ML VIAL IVP PRN ×2 (14:39→16:38)
[2022-05-02] MEDS ORDERED: MORPHINE 2 MG/ML CARPUJECT IVP PRN (14:39)
[2022-05-02] MEDS ORDERED: fentaNYL 100 MCG/2 ML VIAL IVP PRN (14:39)
[2022-05-02] MEDS ORDERED: ATROPINE ABBOJECT 1 MG/10 ML SYRINGE IVP PRN (14:39)
[2022-05-02] MEDS ORDERED: NALOXONE 0.4 MG/ML VIAL IVP PRN (14:39)
--- NOTE | 2022-05-02 14:40 | HISTORY & PHYSICAL EXAMINATION ---
Chief Complaint - Chief Complaint Chief Complaint: right lower abdominal pain History of Present Illness - History Obtained From Records Reviewed: yes History obtained from: pt Exam Limitations: none - History of Present Illness HPI Comment/Other: right lower abdominal pain and loss of appetite since yesterday. getting worse History - Past Medical History Cardiovascular: reports: Hypertension Respiratory: reports: None Neuro: reports: None Endocrine/Autoimmune: reports: None GI: reports: None, Cholelithiasis COLLECTOR: reports: Endometriosis : reports: None HEENT: reports: None Psych: reports: Depression Musculoskeletal: reports: None Derm: reports: None MRSA Hx?: No - Past Surgical History General: reports: Other /COLLECTOR: reports: Other - Family & Social History Family History: Mother: (In her 40's, 2002 of stroke.), Hypertension, Father: Alive and Well (CHTN, Type II diabetes on Insulin), Hypertension, Other family: Cancer (Maternal Aunt with breast CA, ? Aunt with Gastric Cancer. Patient stated Cancer on both sides of her family), [place] (Patient states her PGM is still alive and has "heart" issues) Family History Comment/Other: She reports her mother has a history of stroke. Her father is a diabetic. She has one sister who is also diabetic. No family history of heart disease. Her maternal aunt has a history of breast cancer. Her paternal aunt has a history of what is believed to be gastric cancer. Living Situation: With spouse/s.o., With family Social History Notes: She lives at home with her . She has 3 daughters. 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 She is a non-smoker. Rarely drinks alcohol. - Substance History Use: Uses substance without health or social issues: NONE, Alcohol (Rarely has 1/2 can of beer, "Once in a blue meeks".) - POLST Patient has POLST: No POLST Status: Full Code Meds/Allgy - Home Medications Home Medications: Ambulatory Orders Medication Instructions Recorded Confirmed Bupropion HCl [Bupropion Xl] 300 mg ORAL DAILY 03/21/15 02/19/21 Ascorbic Acid 500 mg PO DAILY 06/13/20 02/19/21 Losartan [Cozaar] 50 mg PO QPM 06/13/20 02/19/21 Metoprolol Succinate [Toprol Xl] 50 mg PO QPM 06/13/20 02/19/21 Ferrous Sulfate 325 mg PO BIDWM #60 tab 11/07/20 02/19/21 Acetaminophen [Acetaminophen Extra 1,000 mg PO Q8H PRN #60 tablet 02/12/21 02/19/21 Strength] Docusate Sodium 100Mg Capsule 100 - 200 mg PO BID PRN #60 cap 02/12/21 02/19/21 [Colace 100Mg Capsule] Ibuprofen [Motrin] 600 mg PO Q6H PRN #60 tab 02/12/21 02/19/21 HYDROcod/ACETAM 5/325 [[place] 5/325] 1 each PO Q6H PRN #30 tablet 02/20/21 Ondansetron Odt [Zofran Odt] 4 mg PO Q6H PRN #15 tablet 02/20/21 - Allergies Allergies/Adverse Reactions: Allergies Allergy/AdvReac Type Severity Reaction Status Date / Time No Known Drug Allergies Allergy Verified 05/02/22 08:36 Review of Systems - Other Findings Other Findings: 10 pt ros as above otherwise unremarkable chronic anemia and fatigue with 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 Exam - Vital Signs Reviewed Vital Signs: Yes Vital Signs: Vital Signs x48h Temp Pulse Resp BP Pulse Ox 05/02/22 13:09 83 14 148/87 H 99 05/02/22 08:34 36.3 C L 95 16 146/82 H 100 - Physical Exam General Appearance: positive: No acute distress, Alert Eyes Bilateral: positive: PERRL, EOMI, No scleral icterus ENT: positive: No signs of dehydration Neck: positive: No JVD Respiratory: positive: No respiratory distress Cardiovascular: positive: Regular rate & rhythm Abdomen: positive: No distention, Other (right lower quadrant tenderness present) Neurologic/Psychiatric: positive: Oriented x3 Conclusion/Plan - Problem List (1) Appendicitis Conclusion/Plan: plan appendectomy. parq held and consent obtained Qualifiers: Appendicitis type: acute appendicitis Acute appendicitis type: with localized peritonitis Appendicitis gangrene presence: without gangrene Appendicitis perforation presence: without perforation Appendicitis abscess presence: without abscess Qualified Code(s): K35.30 - Acute appendicitis with localized peritonitis, without perforation or gangrene - Lab Results Fish Bones: 05/02/22 10:10 05/02/22 10:10 - Diagnostic Imaging Results Diagnostic Imaging Results: positive: Final report reviewed, Read independently (appendicitis with surrounding inflammation)
[2022-05-02] MEDS ORDERED: BUPIVACAINE 0.25% PF 10 ML VIAL SUBQ ONE ×2 (14:50)
[2022-05-02] MEDS ORDERED: BUPIVACAINE 0.25% PF 10 ML VIAL ONE ×2 (14:54→15:11)
[2022-05-02] MEDS ORDERED: LACTATED RINGERS 1,000 ML IV SCH (15:00)
[2022-05-02] MEDS ORDERED: SUGAMMADEX 200 MG/2 ML VIAL IVP ONE (15:02)
[2022-05-02] MEDS ORDERED: DEXAMETHASONE 4 MG/ML VIAL ONE (15:02)
[2022-05-02] MEDS ORDERED: MIDAZOLAM 2 MG/2 ML VIAL ONE (15:02)
[2022-05-02] MEDS ORDERED: PROPOFOL 200 MG/20 ML VIAL IVP ONE ×2 (15:02→16:37)
[2022-05-02] MEDS ORDERED: ROCURONIUM 50 MG/5 ML VIAL ONE (15:02)
--- NOTE | 2022-05-02 15:35 | ANESTHESIA ---
Pre-Anesthesia VS, & Labs - Diagnosis acute appendicitis - Procedure lap appy Vital Signs: Temp Pulse Resp BP Pulse Ox O2 Flow Rate 36.3 C L 84 14 140/87 H 100 05/02/22 08:34 05/02/22 14:58 05/02/22 14:58 05/02/22 14:58 05/02/22 14:58 Height: 4 ft 11 in Weight (kg): 68.039 kg Body Mass Index: 30.2 BMI Classification: Obese - NPO >8 hours - Is Patient ?: No - Lab Results Current Lab Results: Laboratory Tests 05/02/22 14:20: Blood Type O POSITIVE, Antibody Screen NEGATIVE 05/02/22 10:10: Sodium 133 L, Potassium 4.0, Chloride 101, Carbon Dioxide 24, Anion Gap 8.0, BUN 11, Creatinine 0.6, Estimated GFR (MDRD) 107, Glucose 123 H, Calcium 9.0, Total Bilirubin 0.7, AST 18, ALT 18, Alkaline Phosphatase 76, Total Protein 8.0, Albumin 4.0, Globulin 4.0, Albumin/Globulin Ratio 1.0, Lipase 29 05/02/22 10:10: WBC 15.1 H, RBC 4.16 L, Hgb 7.3 L, Hct 27.5 L, MCV 66.1 L, MCH 17.5 L, MCHC 26.5 L, RDW 20.3 H, Plt Count 212, Neut # (Auto) 12.3 H, Lymph # (Auto) 1.4 L, [place] # (Auto) 1.1 H, Eos # (Auto) 0.1, Baso # (Auto) 0.1, Absolute Nucleated RBC 0.02, Nucleated RBC % 0.1, Manual Slide Review Indicated, WBC Morphology NORMAL APPEARANCE, Platelet Estimate NORMAL (130-450,000), Platelet Morphology 2+ LARGE PLATELETS Fish Bones: 05/02/22 10:10 05/02/22 10:10 Home Medications and Allergies Active Medications Atropine Sulfate (Atropine Abboject 1 Mg/10 Ml Syringe) 0.5 mg IVP Q5M PRN PRN Reason: Bradycardia Stop: 05/03/22 14:39 Ephedrine Sulfate (Ephedrine 50 Mg/Ml Vial) 10 mg IVP Q5M PRN PRN Reason: HYPOTENSION Stop: 05/03/22 14:39 Fentanyl (Fentanyl 100 Mcg/2 Ml Vial) 25 - 50 mcg IVP Q5M PRN PRN Reason: BREAKTHROUGH PAIN (2nd Choice) Stop: 05/03/22 14:39 Hydromorphone HCl (Hydromorphone 0.5 Mg/0.5 Ml Syringe) 0.2 - 0.6 mg IVP Q5M PRN PRN Reason: PAIN (First Choice) Stop: 05/03/22 14:39 Lactated Ringer's (Lr) 1,000 mls @ 100 mls/hr IV .Q10H MICHELLE Stop: 05/03/22 00:59 Morphine Sulfate (Morphine 2 Mg/Ml Carpuject) 2 - 4 mg IVP Q5M PRN PRN Reason: PAIN (3rd Choice) Stop: 05/03/22 14:39 Naloxone HCl (Naloxone 0.4 Mg/Ml Vial) 0.1 mg IVP Q2M PRN PRN Reason: RESP RATE <8 Stop: 05/03/22 14:39 Ondansetron HCl (Ondansetron 4 Mg/2 Ml Vial) 4 mg IVP ONCE PRN PRN Reason: N/V (First Choice) Stop: 05/03/22 14:39 Bupropion HCl [Bupropion Xl] 300 mg ORAL DAILY 03/21/15 Ascorbic Acid 500 mg PO DAILY 06/13/20 Losartan [Cozaar] 50 mg PO QPM 06/13/20 Metoprolol Succinate [Toprol Xl] 50 mg PO QPM 06/13/20 Allergies/Adverse Reactions: Allergies Allergy/AdvReac Type Severity Reaction Status Date / Time No Known Drug Allergies Allergy Verified 05/02/22 08:36 Anes History & Medical History - Anesthetic History Anesthesia Complications: reports: No previous complications Family history of Anesthesia Complications: Denies Family history of Malignant Hyperthermia: Denies - Medical History Cardiovascular: reports: Hypertension Pulmonary: reports: None Gastrointestinal: reports: None, Cholelithiasis Urinary: reports: None Neuro: reports: None Musculoskeletal: reports: None Endocrine/Autoimmune: reports: None Blood Disorders: reports: Anemia Skin: reports: None Smoking Status: Never smoker - Surgical History General: reports: Other Gynecologic: reports: Other Exam General: Alert, Oriented x3, Cooperative Dental: WNL Mouth Openin Fingerbreadth Neck Mobility: Normal Mallampati classification: I Thyromental Distance: 4-6 cm Respiratory: Lungs clear Cardiovascular: Regular rate Plan Anesthesia Type: General Consent for Procedure(s) Verified and Reviewed: Yes Code Status: Attempt Resuscitation ASA classification: 2-Mild systemic disease Is this case an emergency?: Yes
[2022-05-02 15:57] LABS: B. PARAPERTUSSIS- RESP PCR PAN NOT DETECTED; B. PERTUSSIS- RESP PCR PANEL NOT DETECTED; C. PNEUMONIAE- RESP PCR PANEL NOT DETECTED; CORONAVIRUS 229E-RESP PCR NOT DETECTED; CORONAVIRUS HKU1-RESP PCR NOT DETECTED; CORONAVIRUS NL63-RESP PCR NOT DETECTED; CORONAVIRUS OC43-RESP PCR NOT DETECTED; HUMAN METAPNEUMOVIRUS NOT DETECTED; INFLUENZA A- RESP PCR PANEL NOT DETECTED; INFLUENZA B - RESP PCR PANEL NOT DETECTED; M. PNEUMONIAE- RESP PCR PANEL NOT DETECTED; PARAINFLUENZA VIRUS 1 NOT DETECTED; PARAINFLUENZA VIRUS 2 NOT DETECTED; PARAINFLUENZA VIRUS 3 NOT DETECTED; PARAINFLUENZA VIRUS 4 NOT DETECTED; RHINOVIRUS/ENTEROVIRUS NOT DETECTED; RSV- RESP PCR PANEL NOT DETECTED; SARS-CoV-2 -RESP PCR PANEL NOT DETECTED
[2022-05-02] MEDS ORDERED: LACTATED RINGERS 1,000 ML IV ONE (16:39)
[2022-05-02] MEDS ORDERED: ONDANSETRON ODT 4 MG TABLET TL PRN (16:42)
--- NOTE | 2022-05-02 16:48 | OPERATIVE REPORT ---
Operative Report - General Procedure Date: 05/02/22 Planned Procedure: appendectomy Pre-Op Diagnosis: appendicitis Procedure Performed: laparoscopic appendectomy Post Op Diagnosis: appendicitis and findings of endometriosis, mild - Procedure Note Primary Surgeon: jody meraz Anesthesia Technique: General ET tube, Local Pathology: appendix Estimated Blood Loss (mL): 101 Indications: appendicitis Findings: large uterus and left fallopian tube. small spots of probable endometriosis thin bloody fluid in abdomen at start of procedure pictures taken Complications: none - Other Other Information/Narrative: The patient was properly identified brought to the operating room and placed in supine position. The patient was previously given antibiotics. Sequential compression devices were placed. General endotracheal anesthesia was induced. The patient was prepped and draped in a sterile fashion. Local anesthetic was given to incision areas. An infraumbilical incision was made in and proceeded down to the fascia. The fascia was incised lifted upwards and abdomen entered with a Veress needle. CO2 was insufflated to a pressure of 15. A 12 mm trocar was placed with 30 degree scope. There was no evidence of injury from Veress needle or trocar placement. Under direct vision a 5 mm trocar was placed suprapubic and a 5 mm trocar was placed in the right upper quadrant. Appendix was identified and retracted anteriorly. Peritoneal attachments were taken down with careful use of cautery. Appendix was mobilized more anterior. A plane was then created between the mesoappendix and the appendix at the cecum. Appendix was divided with an Endo JERAMY intestinal load to include up a small portion of the cecum. The mesoappendix was then divided with an Endo JERAMY vascular load. There was secure closure at the cecum and hemostasis was assured. The appendix was brought out. The abdomen was thoroughly irrigated and hemostasis again assured. Trochars were removed under direct vision. Fascia at the infraumbilical site was closed with a running 0 Vicryl suture. Subcutaneous tissue was irrigated and skin reapproximated with buried interrupted 4-0 Monocryl. Dressings were applied. The patient tolerated the procedure well was awakened and brought to recovery in good condition.
[2022-05-02] MEDS ORDERED: iohexoL-300 100 ML VIAL IVP ONE (17:34)
[2022-05-02] MEDS: D5.45NS W/20 MEQ KCL 1,000 ML IV SCH (17:56)
--- NOTE | 2022-05-02 18:05 | ANESTHESIA POST OP EVALUATION ---
Anesthesia Post Eval - Post Anesthesia Eval Vitals: Last Vital Signs Temp 36.6 C 05/02/22 17:21 Pulse 90 05/02/22 17:51 Resp 16 05/02/22 17:51 BP 137/74 H 05/02/22 17:51 Pulse Ox 100 05/02/22 17:51 O2 Flow Rate CV Function Including HR & BP: Stable Pain Control: Satisfactory Nausea & Vomiting: Negative Mental Status: Baseline Respiratory Status: Airway Patent Hydration Status: Satisfactory Anesthesia Complications: None
[2022-05-02] MEDS: buPROPion SR 150 MG TABLET PO SCH (20:31)
[2022-05-02] MEDS: PIPERACILLIN/TAZOBACTAM 3.375 GM in SODIUM CHLORIDE 0.9% MINIBAG 100 ML IV SCH (20:31)
[2022-05-02] MEDS: HYDROcod/ACETAM 5/325 MG TABLET PO PRN (20:31)
[2022-05-03] MEDS: PIPERACILLIN/TAZOBACTAM 3.375 GM in SODIUM CHLORIDE 0.9% MINIBAG 100 ML IV SCH ×2 (02:06→08:04)
[2022-05-03] MEDS: D5.45NS W/20 MEQ KCL 1,000 ML IV SCH (02:08)
[2022-05-03] MEDS: HYDROcod/ACETAM 5/325 MG TABLET PO PRN ×2 (04:13→10:20)
[2022-05-03 07:17] VITALS: BP 110/64
[2022-05-03] MEDS: buPROPion SR 150 MG TABLET PO SCH (08:04)
[2022-05-03] MEDS ORDERED: METOPROLOL SUCCINATE 50 MG TABLET PO SCH (09:00)
== END 2022-05-03 10:26 | disposition home or self-care (01) ==
LOC: ED 08:22 → SDS 15:15 → MS2 16:49 → SDS 16:49
PROVIDERS: ATTEND Surgery
PROC: 0DTJ4ZZ Resection of Appendix, Percutaneous Endoscopic Approach (ICD-10-PCS; principal; 2022-05-02 14:30)
DX: K35.30 Acute appendicitis with localized peritonitis, without perforation or gangrene (principal); I10 Essential (primary) hypertension; E66.9 Obesity, unspecified; Z20.822 Contact with and (suspected) exposure to COVID-19; Z32.02 Encounter for pregnancy test, result negative; Z68.30 Body mass index [BMI] 30.0-30.9, adult
CPT/HCPCS: 36415; 44970; 73630; 74177; 80053; 81003; 81025; 83690; 85025; 86850; 86900; 86901; 87633; 96374; 99284; 99285; A9270; J1170; J7120; Q9967; 81001; 87086